=== PATIENT | female | born 1945 ===

== ENCOUNTER 2024-09-22 09:49 | Outpatient (AMB) | payer MEDICARE, SELFPAY ==
--- NOTE | 2024-09-22 10:04 | MHC.OFFVIS ---
Vital Signs 09/22/24 10:18 Height 5 ft 2 in Weight 121 lb 2 oz BMI 22.2 BP 170/83 H Blood Pressure Location Rt brachial Position Sitting Pulse 77 Pulse Source Pulse Oximeter Pulse Oximetry (%) 96 Oxygen Delivery Method Room Air Intake Visit Reasons: Low back pain radiates into right leg Intake Note: Pain today 06/13 Change Management Lead Required: Yes Change Management Lead Language: Coating Engineer Services: Change Management Lead Present Change Management Lead Name: Tony #[id number], Dia #[id number] Accompanied by: Self / Same As Patient Allergies iron Allergy (Unknown, Verified 09/22/24 10:05) Rash Penicillins Allergy (Unknown, Verified 09/22/24 10:05) Rash HPI HPI Low back pain radiates into right leg: Details: Patient is a pleasant 79 years old Mongolian speaking female with history of chronic midline low back pain with sciatica and osteoporosis, presents today for initial evaluation of low back pain with right-sided radiculopathy. She presents in a moderate distress today and constantly changes her positioning from sitting, standing and leaning forward to alleviate her acute back pain. Denies any recent trauma, injury, or falls. 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 Back pain is axial and also radiates to right lower extremity anteriorly and at times radiates to her left leg laterally and posteriorly. She reports numbness and tingling with burning sensation in her right hernández and dorsal foot. Her mobility, functioning, sleep and ADLs are significantly limited due to pain. She is concerned for not able to complete her house chores at home. She experiences spinal-stenosis related pain and cannot pursue formal physical therapy. Denies any fever, chills, abdominal or groin pain, bladder or bowel dysfunction or saddle anesthesia. Reports right lower extremity weakness due to pain. She ambulates with walker. Location: Low back pain radiates into RLE anteriorly, at times on the left posterior Duration: Chronic pain, worsening over the past one year Characteristics of symptom or complaint: Shooting, stabbing, sharp, numbness, tingling, radiating, heavy, aching Aggravating or associated factors: Movements, sitting, walking, sleeping, cold weather, ADLs, housechores Relieving factors: Rest, changing positions, modifying activities, heat, Tylenol Treatment: Lumbar MRI 2021 at [facility] Medical History (Updated 09/22/24 @ 20:21 by JESUSITA Gonzalez) Age-related osteoporosis without current pathological fracture GERD without esophagitis Midline low back pain with sciatica Hypothyroidism Hypertension Review of Systems Const All systems reviewed & are unremarkable except as noted in HPI and below Physical Exam Vital Signs: Last Vital Signs Pulse 77 09/22/24 10:18 BP 170/83 H 09/22/24 10:18 Pulse Ox 96 09/22/24 10:18 Oxygen Delivery Method Room Air 09/22/24 10:18 BMI result Body Mass Index 22.2 General: Appears afebrile. Acute moderate distress due to pain. Alert and oriented. Mood and affect appropriate. Follows and participates in conversation appropriately. Respiratory effort is unlabored. No cough. Able to transition from sit to stand unassisted. Ambulates with left normal heel strike and toe off and increased pain on the right. General: Yes no CVA tenderness Back/Spine/Pelvis Other: Limited lumbar ROM due to significant pain. Lumbar extension and flexion reproduce [id number]-[id number] pain. Mild midline tenderness in the lower lumbar spine, no midline tenderness in the thoracic or upper lumbar spine. Antalgic gait, mild limping on the left. Uses walker with ambulation. Demonstrates 5/5 left and 4/5 right strength of quadriceps bilaterally as well as flexion/dorsiflexion of bilateral feet against resistance. 2+ pedal pulses bilaterally. Straight leg rise with dorsiflexion positive bilaterally, right worse than left. Diminished patellar and achilles reflexes bilaterally. Facet loading test positive bilaterally. Tricia sign positive bilaterally, limited Vicente's test reproduces low back and hip pain. Pelvic compression and Stinchfield tests are positive bilaterally. Mild groin pain with I/E hip rotations. Valsalva maneuver negative. Back: no CVA tenderness Cervical Spine: loss of normal cervical lordosis, cervical muscular tenderness and No Cervical spine tenderness Thoracic/Lumbar Spine: thoracic and lumbar spine normal to inspection, No Thoracic/lumbar spine scar(s), Lasegue's sign positive (localized on the right L4-L5, diffuse on left L5-S1) bilateral, pain with thoraco-lumbar ROM, paraspinal muscle tenderness on the right greater than left, No thoracic spinal tenderness and lumbar spinal tenderness (L3-S1) Pelvis: buttock tenderness on the right and no sciatic notch tenderness Sacroiliac joints: bilaterally tender to palpation Extrem General: Yes capillary refill normal, Yes no clubbing, cyanosis or edema and Yes no calf tenderness Results Reviewed Results Reviewed: No imagiang results are available for review today. Assessment & Plan Assessment & Plan (1) Lumbar back pain with radiculopathy affecting right lower extremity: Code(s): M54.16 - Radiculopathy, lumbar region Category: Medical (2) Lumbosacral spondylosis: Code(s): M47.817 - Spondylosis without myelopathy or radiculopathy, lumbosacral region Category: Medical (3) Lumbar degenerative disc disease: Code(s): M51.369 - Other intervertebral disc degeneration, lumbar region without mention of lumbar back pain or lower extremity pain Category: Medical (4) Lumbar back pain with radiculopathy affecting right lower extremity: Code(s): M54.16 - Radiculopathy, lumbar region Category: Medical (5) Lumbosacral spondylosis: Code(s): M47.817 - Spondylosis without myelopathy or radiculopathy, lumbosacral region Category: Medical (6) Lumbar spinal stenosis: Code(s): M48.061 - Spinal stenosis, lumbar region without neurogenic claudication Category: Medical (7) Midline low back pain with sciatica: Code(s): M54.40 - Lumbago with sciatica, unspecified side Category: Medical Plan Patient presents today with significant acute on chronic right-sided radiculopathy and experiences significant spinal stenosis related pain. We will proceed with lumbar spine MRI to assess for neural integrity and compression. She reports most recent lumbar spine MRI at [facility] several years ago, will request this report today. Short script provided for tramadol for [id number] acute low back pain. Side effects and precautions were discussed with patient. Narcan sent with tramadol, discussed its use and administration. Patient is aware to call if pain worsens or if she develops any red flag symptoms to seek emergency care. Patient denies any cauda equina syndrome symptoms at this time. All questions and concerns have been answered and patient agreed with the treatment plan. Follow-up for MRI results and sooner as needed. Orders: Orders MR lumbar spine wo con Today M47.817 - Spondylosis without myelopathy or radiculopathy, lumbosacral region, M48.061 - Spinal stenosis, lumbar region without neurogenic claudication, M51.369 - Other intervertebral disc degeneration, lumbar region without mention of lumbar back pain or lower extremity pain, M54.16 - Radiculopathy, lumbar region Medications: New naloxone 4 mg/actuation (Narcan) spray 1 dose into ONE nostril; alternate nostrils w each dose until help arrives 4 mg intranasal Q2M PRN 2 ea 0RF opioid overdose lidocaine 5% leave on most painful area for up to 12 hrs topical 30 ea 0RF pain M47.817 - Spondylosis without myelopathy or radiculopathy, lumbosacral region, M48.061 - Spinal stenosis, lumbar region without neurogenic claudication, M51.369 - Other intervertebral disc degeneration, lumbar region without mention of lumbar back pain or lower extremity pain, M54.16 - Radiculopathy, lumbar region tramadol 50 mg PO BID 10 days PRN 20 tabs 0RF pain (scale score 7-10) M47.817 - Spondylosis without myelopathy or radiculopathy, lumbosacral region, M51.369 - Other intervertebral disc degeneration, lumbar region without mention of lumbar back pain or lower extremity pain, M54.16 - Radiculopathy, lumbar region Coding Level of Care Code New Pt Level 4 (93857) Complex EM visit Add On G2211 Diagnoses Lumbar back pain with radiculopathy affecting right lower extremity M54.16 Lumbosacral spondylosis M47.817 Lumbar degenerative disc disease M51.369 Lumbar spinal stenosis M48.061 Midline low back pain with sciatica M54.40
[2024-09-22 10:18] VITALS: BP 170/83; PULSE 77; O2SAT 96; BMI 22.2
== END 2024-09-22 10:55 | disposition home or self-care (01) ==
PROVIDERS: PCP Internal Medicine; Visit Provider Nurse Practitioner Family
DX: M54.16 Radiculopathy, lumbar region (principal); M47.817 Spondylosis without myelopathy or radiculopathy, lumbosacral region; M51.369 Other intervertebral disc degeneration, lumbar region without mention of lumbar back pain or lower extremity pain; M48.061 Spinal stenosis, lumbar region without neurogenic claudication; M54.40 Lumbago with sciatica, unspecified side
CPT/HCPCS: 99204; G2211

== ENCOUNTER → 2024-09-22 09:54 | Outpatient (BNVA) | payer MEDICARE, SELFPAY | PROVIDERS: PCP Internal Medicine; Visit Provider Nurse Practitioner Family | DX: M54.16 Radiculopathy, lumbar region (principal); M47.817 Spondylosis without myelopathy or radiculopathy, lumbosacral region; M51.369 Other intervertebral disc degeneration, lumbar region without mention of lumbar back pain or lower extremity pain; M48.061 Spinal stenosis, lumbar region without neurogenic claudication; M54.40 Lumbago with sciatica, unspecified side | CPT/HCPCS: 99202 ==

== ENCOUNTER 2024-11-30 12:37 | Outpatient (AMB) | payer MEDICARE, SELFPAY ==
--- NOTE | 2024-11-30 13:03 | A.OFFVIS_ITS ---
Vital Signs 11/30/24 13:07 Height 5 ft 2 in Weight 120 lb BMI 21.9 BP 146/95 H Blood Pressure Location Rt brachial Position Sitting Pulse 77 Pulse Source Pulse Oximeter Intake Visit Reasons: Discuss MRI Results Intake Note: Pain today 10 Tumbler Machine Operator Required: Yes Tumbler Machine Operator Language: Director Safety Council Services: Tumbler Machine Operator Present Tumbler Machine Operator Name: [id number] Information Interpreted: non-clinical & clinical Accompanied by: Self / Same As Patient Allergies iron Allergy (Unknown, Verified 11/30/24 13:07) Rash Penicillins Allergy (Unknown, Verified 11/30/24 13:07) Rash HPI Comments Details: Patient presents today for follow-up to discuss recent lumbar spine MRI results. She continues to endorse significant low back pain which radiates into her both anterior thighs into lateral lower legs this is associated numbness and tingling and weakness in the left lower extremity. Patient reports pain 10/10. She states tramadol has been partially effective. 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 She requests therapeutic FAUSTO to alleviate her symptoms. Denies any fever or chills, abdominal or groin pain, bladder or bowel dysfunction or saddle anesthesia. PRIOR: Patient is a pleasant 79 years old Puerto Rican speaking female with history of chronic midline low back pain with sciatica and osteoporosis, presents today for initial evaluation of low back pain with right-sided radiculopathy. She presents in a moderate distress today and constantly changes her positioning from sitting, standing and leaning forward to alleviate her acute back pain. Denies any recent trauma, injury, or falls. 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 Back pain is axial and also radiates to right lower extremity anteriorly and at times radiates to her left leg laterally and posteriorly. She reports numbness and tingling with burning sensation in her right hernández and dorsal foot. Her mobility, functioning, sleep and ADLs are significantly limited due to pain. She is concerned for not able to complete her house chores at home. She experiences spinal-stenosis related pain and cannot pursue formal physical therapy. Denies any fever, chills, abdominal or groin pain, bladder or bowel dysfunction or saddle anesthesia. Reports right lower extremity weakness due to pain. She ambulates with walker. Location: Low back pain radiates into RLE anteriorly, at times on the left posterior Duration: Chronic pain, worsening over the past one year Characteristics of symptom or complaint: Shooting, stabbing, sharp, numbness, tingling, radiating, heavy, aching Aggravating or associated factors: Movements, sitting, walking, sleeping, cold weather, ADLs, housechores Relieving factors: Rest, changing positions, modifying activities, heat, Tylenol [facility] Medical History Age-related osteoporosis without current pathological fracture GERD without esophagitis Midline low back pain with sciatica Hypothyroidism Hypertension Review of Systems Const All systems reviewed & are unremarkable except as noted in HPI and below Physical Exam Vital Signs: Last Vital Signs Pulse 77 11/30/24 13:07 BP 146/95 H 11/30/24 13:07 BMI result Body Mass Index 21.9 General: Appears afebrile. Moderate distress due to pain. Alert and oriented. Mood and affect appropriate. Follows and participates in conversation appropriately. Respiratory effort is unlabored. No cough. Able to transition from sit to stand unassisted. Ambulates with left normal heel strike and toe off and increased pain on the left. General: Yes no CVA tenderness Back/Spine/Pelvis Other: Limited lumbar ROM due to significant pain. Lumbar extension and flexion reproduces [id number]-[id number] pain. Mild midline tenderness in the lower lumbar spine, no midline tenderness in the cervical, thoracic or upper lumbar spine. Antalgic gait, mild limping. Uses walker with ambulation. Demonstrates 5/5 left and 4/5 right strength of quadriceps bilaterally as well as flexion/dorsiflexion of bilateral feet against resistance. 2+ pedal pulses bilaterally. Straight leg rise with dorsiflexion positive bilaterally, right worse than left. Diminished patellar and achilles reflexes bilaterally. Facet loading test positive bilaterally. Tricia sign positive bilaterally, limited Vicente's test reproduces low back and hip pain. Pelvic compression and Stinchfield tests are positive bilaterally. Mild groin pain with I/E hip rotations. Valsalva maneuver negative. Back: no CVA tenderness Cervical Spine: loss of normal cervical lordosis, cervical muscular tenderness and No Cervical spine tenderness Thoracic/Lumbar Spine: thoracic and lumbar spine normal to inspection, No Thoracic/lumbar spine scar(s), Lasegue's sign positive (localized on the right L4-L5, diffuse on left L5-S1) bilateral, pain with thoraco-lumbar ROM, paraspinal muscle tenderness on the right greater than left, No thoracic spinal tenderness and lumbar spinal tenderness (L3-S1) Pelvis: buttock tenderness on the right and no sciatic notch tenderness Sacroiliac joints: bilaterally tender to palpation Extrem General: Yes capillary refill normal, Yes no clubbing, cyanosis or edema and Yes no calf tenderness Results Reviewed Results Reviewed: MR SPINE LUMBAR without CONTRAST 10/17/24 INDICATION: Radiculopathy, lumbar region. Numbness right leg ongoing for 5 weeks. TECHNIQUE: Unenhanced multiplanar, multisequence MR imaging of the lumbar spine. COMPARISON: MR lumbar 08/08/2021, 04/15/2020. FINDINGS: Normal lumbar alignment is demonstrated. Vertebral heights are well maintained. Bone marrow signal is within normal limits, and no suspicious osseous lesion is identified. Conus medullaris is unremarkable. There are bilateral nerve root cysts demonstrated at T11-12 and T12-L1 on the right. Paraspinal soft tissues and visualized portions of the abdomen and pelvis are unremarkable. At L1-2 there is no significant disc herniation or protrusion. No central canal or neural foraminal stenosis is demonstrated. At L2-3 there is mild annular disc bulge. There is minimal facet arthrosis. There is no significant central canal or neural foraminal stenosis. At L3-4 there is no mild annular disc bulge. There is no significant facet arthrosis. There is no significant central canal or neural foraminal stenosis. At L4-5 there is broad-based disc bulge and mild ligament flavum hypertrophy. There is mild narrowing of the central canal. There is mild bilateral neural foraminal stenosis greater on the left. Findings appear stable. At L5-S1 there is no significant disc herniation or protrusion. No central canal or neural foraminal stenosis is demonstrated. 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 IMPRESSION: Degenerative changes predominately at L4-5 with narrowing of the neuroforamina greater on the left. Findings appear stable. No other significant central canal or neural foraminal stenosis. 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 - Perineural cyst Category: Medical (5) Lumbar back pain with radiculopathy affecting right lower extremity: Code(s): M54.16 - Radiculopathy, lumbar region Category: Medical (6) Lumbar spinal stenosis: Code(s): M48.061 - Spinal stenosis, lumbar region without neurogenic claudication Category: Medical (7) Osteoporosis: Code(s): M81.0 - Age-related osteoporosis without current pathological fracture Category: Medical (8) Midline low back pain with sciatica: Code(s): M54.40 - Lumbago with sciatica, unspecified side Category: Medical Plan Lumbar spine MRI imaging results were discussed with patient today. She continues to endorse significant acute on chronic right-sided radiculopathy and experiences significant spinal stenosis related pain. Her lumbar spine MRI findings are consistent with her exam. Given history of osteoporosis, I would like to update her bone scan prior to Bilateral L4-L5 TFESI with local and fluoroscopy. Expectations, risks and benefits were reviewed. Patient declined Neursurgery evaluation at this time. Short script provided for oxycodone for frjzmjwz-eo-xogfow acute low back pain. Side effects and precautions were discussed with patient. Patient has Narcan at home. She is requesting script for pill splitter to trial a half dose initially. Patient is aware to call if pain worsens or if she develops any red flag symptoms to seek emergency care. Patient denies any cauda equina syndrome symptoms at this time. All questions and concerns have been answered and patient agreed with the tr eatment plan. Follow-up Bone scan results and sooner as needed. Orders: Orders XR DEXA axial skeleton Today M47.817 - Spondylosis without myelopathy or radiculopathy, lumbosacral region, M51.369 - Other intervertebral disc degeneration, lumbar region without mention of lumbar back pain or lower extremity pain Medications: New oxycodone Partial Fill upon patient request. 5 mg PO BID 10 days PRN 20 tabs 0RF pain M47.817 - Spondylosis without myelopathy or radiculopathy, lumbosacral region, M51.369 - Other intervertebral disc degeneration, lumbar region without mention of lumbar back pain or lower extremity pain, M54.16 - Radiculopathy, lumbar region miscellaneous medical supply As directed 1 ea 0RF M51.369 - Other intervertebral disc degeneration, lumbar region without mention of lumbar back pain or lower extremity pain Coding Level of Care Code Est Pt Level 4 (39538) Complex EM visit Add On G2211 Diagnoses Lumbosacral spondylosis M47.817 Lumbar degenerative disc disease M51.369 Tarlov cyst G96.191 Lumbar back pain with radiculopathy affecting right lower extremity M54.16 Lumbar spinal stenosis M48.061 Osteoporosis M81.0 Midline low back pain with sciatica M54.40
[2024-11-30 13:07] VITALS: BP 146/95; PULSE 77; BMI 21.9
--- OUTSIDE RECORDS SUMMARY | 2024-11-30 17:19 | XMS_ITS | Encounter Summary ---
Author Organization [facility] Address [address] [place] [id number] Care Team Providers Care Stallion Manager Name Role Phone Chau Oliver MD Primary Care Provider [phone] Encounter Details Date Type Department Care Team (Late st Contact Info) Description 02/26/2022 Dental Interim Note [facility] [address] [place] [phone] Fany Nina, DMD [address] [place] [address] Social History Tobacco Use Types Packs/Day Years Used Date Smoking Tobacco: Never Assessed Social Connections Answer Date Recorded Social Connections and Isolation 0 02/26/2022 Financial Resource Strain Answer Date R ecorded Financial Resource Strain 0 2021 Stress Answer Date Recorded Stress 0 02/26/2022 Physical Activity Answer Date Recorded Physical Activity 0 02/26/2022 Food Insecurity Answer Date Recorded Food 0 02/26/2022 Transportation Needs Answer Date Record ed Transportation 0 02/26/2022 Housing Stability Answer Date Recorded Housing 0 02/26/2022 Safety and Environment Answer Date Kian rded Safety 0 02/26/2022 Utilities Answer Date Recorded Utilities 0 02/26/2022 Employment Answer Date Recorded Employment 0 02/26/2022 Comments Unknown Sex and Gender Information Value Date Recorded Sex Assigned at Female 03/09/2022 11:45 AM PDT Legal Sex Female 6:17 AM PST Gender Identity Female 03/09/2022 11:45 AM PDT Sexual Orientation Straight 03/09/2022 11 :45 AM PDT COVID-19 Exposure Response Date Recorded In the last 10 days, have yo u been in contact with someone who was confirmed or suspected to have Coronavirus/COVID-19? No / Unsure 02/05/2022 9:35 AM EDT documented as of this encounter Plan of Treatment Not on file documented as of this encounter Procedures Procedure Name Priority Date/Time Associated Diagnosis Comments 7 M COMPOSITE - WISDOM (NON BILLABLE) Routine 02/26/2022 12:00 AM EDT 5 RETAINER CROWN-PORCELAIN FUSED PDMT BASE METAL Routine 02/26/2022 12:00 AM EDT 4 RETAINER CROWN-PORCELAIN FUSED PDMT BASE METAL Routine 02/26/2022 12:00 AM EDT 14 RETAINER CROWN-PORCELAIN FUSED PDMT BASE METAL Routine 02/26/2022 12:00 AM EDT 13 RETAINER CROWN-PORCELAIN FUSED PDMT BASE METAL Routine 02/26/2022 12:00 AM EDT 12 RETAINER CROWN-PORCELAIN FUSED PDMT BASE METAL Routine 02/26/2022 12:00 AM EDT 11 RETAINER CROWN-PORCELAIN FUSED PDMT BASE METAL Routine 02/26/2022 12:00 AM EDT 11 RETAINER CROWN-PORCELAIN FUSED PDMT BASE METAL Routine 02/26/2022 12:00 AM EDT 8 RETAINER CROWN-PORCELAIN FUSED PDMT BASE METAL Routine 02/26/2022 12:00 AM EDT 6 RETAINER CROWN-PORCELAIN FUSED PDMT BASE METAL Routine 02/26/2022 12:00 AM EDT 4 RETAINER CROWN-PORCELAIN FUSED PDMT BASE METAL Routine 02/26/2022 12:00 AM EDT documented in this encounter Visit Diagnoses Not on filedocumented in this encounter Care Teams Stallion Manager Relationship Specialty Start Date End Date Chau Oliver MD [address] [place] [address] PCP - General Internal Medicine 12/21/21 documented as of this encounter
--- OUTSIDE RECORDS SUMMARY | 2024-11-30 17:19 | XMS_ITS | Encounter Summary ---
Author Organization [facility] Address [address] [place] [address] Care Team Providers Care Signals Collector/Analyst Name Role Phone Chau Oliver MD Primary Care Provider Encounter Details Date Type Department Care Team (Late st Contact Info) Description 03/22/2022 Dental Interim Note [facility] [address] [place] [address] Fany Nina, SUHA [address] [place] [address] Social History Tobacco Use Types Packs/Day Years Used Date Smoking Tobacco: Never Assessed Smokeless Tobacco: Never Alcohol Use Standard Drinks/Week Comments Never 0 (1 standard drink = 0.6 oz pur e alcohol) Social Connections Answer Date Recorded Connectedness 0 03/09/2022 Financial Resource Strain Answer Date R ecorded Financial Resource Strain 0 2021 Stress Answer Date Recorded Stress 0 03/09/2022 Physical Activity Answer Date Recorded Physical Activity 0 02/26/2022 Food Insecurity Answer Date Recorded Food 0 03/09/2022 Transportation Needs Answer Date Record ed Transportation 0 03/09/2022 Housing Stability Answer Date Recorded Housing 0 03/09/2022 Safety and Environment Answer Date Kian rded Safety 0 03/09/2022 Utilities Answer Date Recorded Utilities 0 03/09/2022 Employment Answer Date Recorded Stress 0 03/09/2022 Comments No Sex and Gender Information Value Date Recorded Sex Assigned at Female 03/09/2022 11:45 AM PDT Legal Sex Female 6:17 AM PST Gender Identity Female 03/09/2022 11:45 AM PDT Sexual Orientation Straight 03/09/2022 11 :45 AM PDT COVID-19 Exposure Response Date Recorded In the last 10 days, have uche u been in contact with someone who was confirmed or suspected to have Coronavirus/COVID-19? No / Unsure 03/09/2022 2:38 PM EDT documented as of this encounter Plan of Treatment Not on file documented as of this encounter Visit Diagnoses Not on filedocumented in this encounter Additional Health Concerns Assessment Noted Time PHQ-9 Depression Total Score: 7 03/09/20 2:42 PM PDT documented as of this encounter Care Teams Signals Collector/Analyst Relationship Specialty Start Date End Date Chau Oliver MD [address] [place] [address] PCP - General Internal Medicine 12/21/21 documented as of this encounter
--- OUTSIDE RECORDS SUMMARY | 2024-11-30 17:19 | XMS_ITS | Encounter Summary ---
Author Organization [facility] Address [address] [place] [address] Care Team Providers Care Frame Builder Name Role Phone Chau Oliver MD Primary Care Provider [phone] Encounter Details Date Type Department Care Team (Late st Contact Info) Description 03/15/2022 Dental Interim Note [facility] [address] [place] [address] Fany Nina, SUHA [address] [place] [address] Social History Tobacco Use Types Packs/Day Years [...] documented as of this encounter Care Teams Frame Builder Relationship Specialty Start Date End Date Chau Oliver MD [address] [place] [address] PCP - General Internal Medicine 12/21/21 documented as of this encounter
--- OUTSIDE RECORDS SUMMARY | 2024-11-30 17:19 | XMS_ITS | Clinical Summary ---
Author Organization [facility] Address [address] [place] [address] Phone Care Team Providers Care Kiln Worker Name Role Phone Chau Oliver MD Primary Care Provider [phone] Allergies Active Allergy Reactions Criticality Noted Date Comments Iron 06/28/2021 Penicillins 06/28/2021 Medications Medication Sig Dispensed Refills Start Date End Date Status amLODIPine (NORVASC) 5 mg tablet Take 1 tablet (5 mg total) by mouth 1 (one) time each day. Active atorvastatin (LIPITOR) 40 mg tablet Take 1 tablet (40 mg total) by mouth 1 (one) time each day. Active cyclobenzaprine (FLEXERIL) 5 mg tablet Take 1 tablet (5 mg total) by mouth 3 (three) times a day if needed. Active levothyroxine (SYNTHROID, LEVOTHROID) 75 mcg tablet Take 1 tablet (75 mcg total) by mouth 1 (one) time each day. 12/11/2021 Active meloxicam (MOBIC) 7.5 mg tablet Take 1 tablet (7.5 mg total) by mouth 1 (one) time each day. 06/28/2021 Active omeprazole (PriLOSEC) [address] capsule Take 1 capsule (20 mg total) by mouth. 03/25/2024 03/20/2025 Active Encounters Date Type Department Care Team Description 09/28/2024 8:30 AM EST - 09/28/2024 11:59 PM EST Hospital Encounter [facility] Bone Density [address] [place] [phone] Age-related osteoporosis without current pathological fracture Discharge Disposition: Home or Self Care from Last 3 Months Surgical History Surgery Date Site/Laterality Comments SHOULDER SURGERY Bilateral PROCEDURE: [place] UNLISTED PROCEDURE SHOULDER HYSTERECTOMY N/A PROCEDURE: HISTORICAL HYSTERECTOMY Social History Tobacco Use Types Packs/Day Years Used Date Smoking Tobacco: Never Smokeless Tobacco: Never Sex and Gender Information Value Date Recorded Sex Assigned at Not on file Gender Identity Not on file Sexual Orientation Not on file Job Start Date Occupation Industry Not on file Not on file Not on file Obstetrics History Last Filed Vital Signs Vital Sign Reading Time Taken Comments Blood Pressure 112/74 07/15/2024 9:44 AM EDT Sitting L Arm Pulse 74 07/15/2024 9:44 AM EDT Temperature - - Respiratory Rate - - Oxygen Saturation - - Inhaled Oxygen Concentration - - Weight 55.5 kg (122 lb 6.4 oz) 07/15/2024 9:44 AM EDT Height 157.5 cm (5' 2 ) 07/15/2024 9:44 AM EDT Body Mass Index 22.39 07/15/2024 9:44 AM EDT Plan of Treatment Upcoming Encounters Date Type Department Care Team (Late st Contact Info) Description 01/18/2025 9:00 AM EDT Office Visit Gastroenterology - [place] [address] [facility] [address] [place] [phone] Carrie Cat PA [address] [facility] [address] [place] [address] Health Maintenance Due Date Last Done Comments Zoster Vaccines (1 of 2) 1993 RSV Immunization Patients 60+ Years Old (1 - 1-dose 75+ series) 2018 Falls Risk Assessment 10/13/2022 Medicare Annual Wellness Visit 10/13/2022 Social Influencers of Health Screening 10/13/2022 Depression Screening 12/21/2023 12/21/2022 COVID-19 Vaccine ( season) 2024 01/14/2021, 12/22/2020 Influenza Vaccine (#1) 2024 08/06/2022, 2020 Hypertension/CHF/CAD Annual BMP Blood Test 09/28/2024 Cholesterol Screening (Lipid Panel) 01/16/2029 01/17/2024, 08/06/2022, 03/12/2022 DTaP,Tdap,and Td Vaccines (2 - Td or Tdap) 03/09/2032 03/09/2022 Osteoporosis Screening (Bone Density Screening) 09/28/2034 09/28/2024 Pneumococcal Vaccine: 65+ Years Completed 05/29/2024, 04/03/2023, 03/09/2022, Additional history exists HIB Vaccines Aged Out No longer eligi ble based on patient's age to complete this topic HPV Vaccines Aged Out No longer eligi ble based on patient's age to complete this topic Hepatitis A Vaccines Aged Out No long er eligible based on patient's age to complete this topic Hepatitis B Vaccines Aged Out No long er eligible based on patient's age to complete this topic IPV Vaccines Aged Out No longer eligi ble based on patient's age to complete this topic MMR Vaccines Aged Out No longer eligi ble based on patient's age to complete this topic Meningococcal ACWY Vaccine Aged Out N o longer eligible based on patient's age to complete this topic RSV Immunization Patients Under 20 months Aged Out No longer eligible based on patient's age to complete this topic Varicella Vaccines Aged Out No longer eligible based on patient's age to complete this topic Procedures Procedure Name Priority Date/Time Associated Diagnosis Comments BD BONE DENSITY DXA AXIAL SKELETON Routine 09/28/2024 9:15 AM EST Age-related osteoporosis without current pathological fracture from Last 3 Months Results * BD Bone Density DXA Axial Skeleton (09/28/2024 9:15 AM EST) Anatomical Region Laterality Modality Wrist, Hip, L-spine Bone Densito metry 09/28/2024 9:58 AM EST Impressions 09/28/2024 10:00 AM EST 1. Osteoporosis. 2. FRAX analysis yields a 10-year probability of major osteoporotic fracture of 17.7% and a 10-year probability of hip fracture of 6.0%. Code 48655 -------- FINAL REPORT -------- Dictated By: Tony Baron Dictated Date: 09/28/2024 09:58 ET Assigned Physician: Tony Baron Reviewed and Electronically Signed By: Tony Baron Signed Date: 09/28/2024 10:00 ET Workstation ID: [id number] Transcribed By: Self Edit Transcribed Date: 09/28/2024 09:58 ET Narrative 09/28/2024 10:00 AM EST HISTORY: ??The patient is an 79-year-old postmenopausal female with clinical concern for metabolic bone disease. FINDINGS: ??Dual energy x-ray absorptiometry of the lumbar spine and femurs is performed. The mean bone mineral density at L1-L4 is 0.839 gm/cm2 which is 71% of that of young normals and 92% of that of age matched controls. This yields a T- score of -2.8 and a Z-score of -0.6 which is diagnostic of osteoporosis. The mean bone mineral density of the femurs bilaterally is 0.812 gm/cm2 which is 81% of that of young normals and 114% of that of age matched controls. ??This yields a T-score of -1.6 and a Z-score of 0.8 which is diagnostic of osteopenia. The T- score of the right femoral neck is -2.3 and that of the left femoral neck is -2.2 which is diagnostic of pain osteopenia. Procedure Note Tony Baron MD - 09/28/2024 HISTORY: The patient is an 79-year-old postmenopausal female withclinical concern for metabolic bone disease. FINDINGS: Dual energy x-ray absorptiometry of the lumbar spine and femursis performed. The mean bone mineral density at L1-L4 is 0.839 gm/cm2 whichis 71% of that of young normals and 92% of that of age matched controls.This yields a T-score of -2.8 and a Z-score of -0.6 which is diagnostic ofosteoporosis. The mean bone mineral density of the femurs bilaterally is 0.812 gm/cz6shirt is 81% of that of young normals and 114% of that of age matchedcontrols. This yields a T-score of -1.6 and a Z-score of 0.8 which isdiagnostic of osteopenia. The T- score of the right femoral neck is -2.3and that of the left femoral neck is -2.2 which is diagnostic of painosteopenia. IMPRESSION: 1. Osteoporosis. 2. FRAX analysis yields a 10-year probability of major osteoporoticfracture of 17.7% and a 10-year probability of hip fracture of 6.0%. Code 44206 -------- FINAL REPORT -------- Dictated By: Tony Baron Dictated Date: 09/28/2024 09:58 ET Assigned Physician: Tony Baron Reviewed and Electronically Signed By: Tony Baron Signed Date: 09/28/2024 10:00 ET Workstation ID: [id number] Transcribed By: Self Edit Transcribed Date: 09/28/2024 09:58 ET Miryam Butler MD IMG DXA PROCEDURE S from Last 3 Months Care Teams Kiln Worker Relationship Specialty Start Date End Date Chau Oliver MD [facility] [place] [address] PCP - General Internal Medicine 03/29/22
--- OUTSIDE RECORDS SUMMARY | 2024-11-30 17:19 | XMS_ITS | Clinical Summary ---
Author Organization [facility] Address [address] [place] [address] Care Team Providers Care Xray Tech Name Role Phone Chau Oliver MD Primary Care Provider [phone] Source Comments PLEASE NOTE, if this patient is a minor, it may be UNLAWFUL to discuss sensitive information that is contained in these records (such as FAMILY PLANNING, MENTAL HEALTH or SUBSTANCE ABUSE) with the minor patient's parent or other person without the patient's specific authorization.[facility] Allergies Active Allergy Reactions Criticality Noted Date Comments Iron Rash 03/09/2022 Penicillins Rash 03/09/2022 Medications diclofenac sodium (VOLTAREN) 1 % gelIndications:Mid line low back pain without sciatica, unspecified chronicity Apply 2-4 g topically 2 (two) times daily 100 g 12/21/19 23 Active omeprazole (PRILOSEC) [address] capsule Take 1 Capsule by mouth every morning before breakfast 90 Capsule 05/15/20 23 Active meclizine (ANTIVERT) 25 mg tabletIndications: Vertigo Take 1 Tablet by mouth once daily as needed for nausea or dizziness 30 Tablet 1 07/04/20 23 Active atorvastatin (LIPITOR) 40 mg tabletIndications: Elevated LDL cholesterol level Take 1 Tablet by mouth once daily 90 Tablet 1 01/15/20 24 Active cyclobenzaprine (FLEXERIL) 10 mg tabletIndications: Neck muscle spasm Take 1 Tablet by mouth 3 (three) times daily as needed for muscle spasms 60 Tablet 01/15/20 24 Active famotidine (PEPCID) 40 mg tabletIndications: Gastroesophageal reflux disease without esophagitis TAKE 1 TABLET BY MOUTH DAILY 90 Tablet 05/14/20 24 Active fluticasone (FLONASE) 50 mcg/actuation nasal sprayIndications:O ther rhinitis SHAKE LIQUID AND USE 1 SPRAY IN BOTH NOSTRILS ONCE DAILY 16 g 5 05/29/20 24 Active loratadine (CLARITIN) 10 mg tabletIndications: Other rhinitis Take 1 Tablet by mouth once daily as needed for allergies 90 Tablet 1 05/29/20 24 Active amLODIPine (NORVASC) 5 mg tabletIndications: Primary hypertension TAKE 1 TABLET BY MOUTH DAILY 90 Tablet 1 08/24/20 24 Active calcium (OS-JOSÉ MIGUEL) 500 mg calcium (1,250 mg) tabletIndications: Age-related osteoporosis without current pathological fracture Take 1 Tablet by mouth 2 (two) times daily 90 Tablet 5 09/03/20 24 Active cholecalciferol (VITAMIN D-3) 50 mcg (2,000 unit) capsuleIndications :Age-related osteoporosis without current pathological fracture Take 1 Capsule by mouth once daily 100 Capsule 5 09/03/20 24 Active levothyroxine 75 mcg tabletIndications: Other specified hypothyroidism Take 1 Tablet by mouth once daily TAKE 1 TABLET BY MOUTH DAILY 90 Tablet 1 11/12/19 25 Active levothyroxine 75 mcg tabletIndications: Other specified hypothyroidism TAKE 1 TABLET BY MOUTH DAILY 90 Tablet 05/14/20 24 025 Discontin ued(Reord er (E-Cancel Not Sent)) Active Problems Problem Noted Date Diagnosed Date Gastroesophageal reflux disease without esophagi tis 06/11/2024 Age-related osteoporosis wit hout current pathological fracture 05/22/2022 Overview (10/05/2024): Bone Densitometer- [facility] 09/28/2024 Osteoporosis Refuses to be on medication. Needs a [facility] because of Bone pain. Pt referred Calcium and Vit d Elevated LDL cholesterol level 03/13/2022 Primary hypertension 03/09/2022 Other specified hypothyroidism 03/09/2022 Midline low back pain without sciatica Overview (03/09/2022): Referred to [facility] Had MRI [facility] [address] by previous MD Mild disc herniation L3-4, L4-5 Broad based posterior disc bulge with small central protrusion and L5-S1 minimal broad based disc bulge Encounters Date Type Department Care Team Description 09/03/2024 9:00 AM EDT Office Visit [facility] [place] [address] Chau Oliver MD Rodriguez, Anabel Age-related osteoporosis without current pathological fracture (Primary Dx) 09/03/2024 Travel from Last 3 Months Immunizations Name Administration Dates Next Due Flu, High Dose, 65y+, Fluzone High Dose 08/06/20 22 PFIZER COVID VACCINE, PURPLE CAP, 12+ 01/14/2021 ,12/22/2020 PNEUMOCOCCAL CONJUGATE PCV 20 (Prevnar) 05/29/20 24 PNEUMOCOCCAL POLYSACCHARIDE PPV23 04/03/2023,04/2022 PPD 03/09/2022 TDAP 03/09/2022 Social History Tobacco Use Types Packs/Day Years Used Date Smoking Tobacco: Never Passive Smoke Exposure: Never Smokeless Tobacco: Never Tobacco Cessation:Counseling Given: Not Answered Alcohol Use Standard Drinks/Week Comments Never 0 [...] Orientation Straight 03/09/2022 11 :45 AM PDT Last Filed Vital Signs Vital Sign Reading Time Taken Comments Blood Pressure 140/74 09/03/2024 8:46 AM EDT Pulse 80 09/03/2024 8:46 AM EDT Temperature 36.8 ??C (98.2 ??F) 09/03/2024 8:46 AM ED T Respiratory Rate 16 09/03/2024 8:46 AM EDT Oxygen Saturation 98% 09/03/2024 8:46 AM EDT Inhaled Oxygen Concentration - - Weight 54.4 kg (120 lb) 09/03/2024 8:46 AM EDT Height 157.5 cm (5' 2 ) 09/03/2024 8:46 AM EDT Body Mass Index 21.95 09/03/2024 8:46 AM EDT Plan of Treatment Health Maintenance Due Date Last Done Comments Dental Perio Charting [address] Colonography 02/24/1988 FIT/gFOBT 02/24/1988 Fecal DNA 02/24/1988 Flexible Sigmoidoscopy 02/24/1988 Imm-Zoster, Recombinant (1 of 2) 1993 [id number] ( season) 2024 021, 12/22/2020 Imm-Influenza (#1) 2024 08/06/2022 Alcohol and Drug Screen 11/04/2024 01/15/20 24, 12/21/2022, 03/09/2022, Additional history exists Depression Annual Screen 11/04/2024 01/15/2024 Falls Prevention 01/14/2025 01/15/2024, , 03/09/2022 Medicare Annual Wellness Visit 01/14/2025 01/15/2024 , 08/17/2022 TSH Monitoring 01/16/2025 01/17/2024, 09/0 03/2023, 03/12/2022 Breast Cancer Screening (Mammogram) 01/29/2025 01/30/2024, 01/30/2024, 01/30/2024, Additional history exists Tobacco Screening 05/29/2025 05/29/2024 Imm-DTaP/Tdap/Td (2 - Td or Tdap) 03/09/2032 022 Colonoscopy 05/23/2033 05/23/2023 Colorectal Cancer Screening 05/23/2033 Imm-Pneumococcal 65+ Completed 05/29/2024, 04/03/2023, 03/09/2022 Bone Density Screening Completed 09/28/2024, 2021 Procedures Procedure Name Priority Date/Time Associated Diagnosis Comments REFERRAL FOR BONE DENSITY TESTING Routine 09/28/2024 3:00 AM EST Age-related osteoporosis without current pathological fracture REFERRAL TO PAIN MANAGEMENT Routine 09/22/2024 3:00 AM EST Age-related osteoporosis without current pathological fracture REFERRAL FOR MAMMOGRAM Routine 01/30/2024 3:00 AM EDT Screening mammogram for breast cancer Health care maintenance ASSAY OF THYROID STIMULATING HORMONE TSH Routine 01/17/2024 8:44 AM EDT Routine general medical examination at a health care facility Primary hypertension Elevated LDL cholesterol level Other specified hypothyroidism REFERRAL FOR COLONOSCOPY Routine 05/23/2023 3:00 AM EDT Health care maintenance from Last 3 Months or Most Recently Relevant to Health Maintenance Results * REFERRAL FOR BONE DENSITY TESTING (09/28/2024 3:00 AM EST) 09/28/2024 3:00 AM EST us Chau Oliver MD IMG RFL DXA Final Result * REFERRAL TO PAIN MANAGEMENT (09/22/2024 3:00 AM EST) 09/22/2024 3:00 AM EST us Chau Oliver MD REFERRAL Final Result * REFERRAL FOR MAMMOGRAM (01/30/2024 3:00 AM EDT) 01/30/2024 3:00 AM EDT us Chau Oliver MD IMG RFL MAMMO Final Result * ASSAY OF THYROID STIMULATING HORMONE TSH (01/17/2024 8:44 AM EDT) TSH 0.90 0.40 - 4.50 mIU/L [facility] Blood Blood / Unknown 01/17/2024 8 :44 AM EDT 01/17/2024 8:45 AM EDT Narrative [facility] - 01/18/2024 6:15 AM EDT FASTING:YES Chau Oliver MD LAB - BLOOD DRAW Edited Result - Final [facility] [address] [address], [facility] [address] [place] [address] * REFERRAL FOR COLONOSCOPY (05/23/2023 3:00 AM EDT) 05/23/2023 3:00 AM EDT Chau Oliver MD REFERRAL Edited Result - Final from Last 3 Months or Most Recently Relevant to Health Maintenance Insurance [place] MED[place] DENTAL GENERIC - DENTAL [facility] MEDICARE COMPLETE Care Teams Xray Tech Relationship Specialty Start Date End Date Chau Oliver MD [address] [place] [address] PCP - General Internal Medicine 12/21/21
== END 2024-11-30 13:39 | disposition home or self-care (01) ==
PROVIDERS: PCP Internal Medicine; Visit Provider Nurse Practitioner Family
DX: M47.817 Spondylosis without myelopathy or radiculopathy, lumbosacral region (principal); M51.369 Other intervertebral disc degeneration, lumbar region without mention of lumbar back pain or lower extremity pain; G96.191 Perineural cyst; M54.16 Radiculopathy, lumbar region; M48.061 Spinal stenosis, lumbar region without neurogenic claudication; M81.0 Age-related osteoporosis without current pathological fracture; M54.40 Lumbago with sciatica, unspecified side
CPT/HCPCS: 99214; G2211

== ENCOUNTER → 2024-11-30 12:37 | Outpatient (BNVA) | payer MEDICARE, SELFPAY | PROVIDERS: PCP Internal Medicine; Visit Provider Nurse Practitioner Family | DX: M47.27 Other spondylosis with radiculopathy, lumbosacral region (principal); M51.369 Other intervertebral disc degeneration, lumbar region without mention of lumbar back pain or lower extremity pain; M81.0 Age-related osteoporosis without current pathological fracture; M48.061 Spinal stenosis, lumbar region without neurogenic claudication; M54.40 Lumbago with sciatica, unspecified side; G96.191 Perineural cyst | CPT/HCPCS: 99212 ==

== ENCOUNTER 2025-01-01 08:39 | Outpatient (REF) | payer MEDICARE, SELFPAY ==
--- NOTE | ~2025-01-01 | MM_ITS ---
EXAMINATION: DXA BONE DENSITY AXIAL HISTORY: Estrogen deficiency TECHNIQUE: Betterment Dual energy absorptiometry (DEXA) of the lumbar spine, total left hip, and femoral neck was performed. COMPARISON: There are no prior studies for comparison. FINDINGS: The bone mineral density of the lumbar spine is 0.802 with a T-score of -3.1, and a Z-score of -1.0. The bone mineral density of the left total hip is 0.789 with a T-score of -1.7, and a Z-score of 0.5. The bone mineral density of the left femoral neck is 0.686 with a T-score of -2.5, and a Z-score of -0.1. MM/XR DEXA axial skeleton IMPRESSION: Based on bone mineral density, and according to World Health Organization (WHO) criteria, the diagnosis is consistent with osteoporosis. All bone density values are in grams per centimeter squared (g/cm2). Statistically, 68% of repeat scans fall within 1 SD (+/- 0.010 g/cm2 for AP spine L1-L4) and 1 SD (+/- 0.012 g/cm2 for femur total) FRAX is a trademark of the [employer]'s [place] for Metabolic Bone Disease, a World Health Organization (WHO) Collaborating Center. Electronically signed by: Alcon Gunn MD 01/01/2025 09:50 AM [facility] [place] [place]
--- OUTSIDE RECORDS SUMMARY | 2025-01-01 08:56 | XMS_ITS | Clinical Summary ---
Author Organization [facility] Address [address] [place] [address] Phone Care Team Providers Care Reed Fixer Name Role Phone Chau Oliver MD Primary Care Provider [phone] Allergies Active Allergy Reactions Criticality Noted Date Comments Iron 06/28/2021 Penicillins 06/28/2021 Medications amLODIPine (NORVASC) 5 mg tablet Take 1 [...] capsule (20 mg total) by mouth. 03/25/2024 Active Surgical History Surgery Date Site/Laterality Comments SHOULDER SURGERY Bilateral PROCEDURE: NE UNLISTED PROCEDURE SHOULDER HYSTERECTOMY N/A PROCEDURE: HISTORICAL HYSTERECTOMY Social History Tobacco Use Types Packs/Day Years Used Date Smoking Tobacco: Never Smokeless Tobacco: Never Comments Unknown Sex and Gender Information Value Date Recorded Sex Assigned at Not on file Legal Sex Female 4:49 AM EST Gender Identity Not on file Sexual Orientation Not on file Obstetrics History Last Filed [...] Team (Late st Contact Info) Description 01/18/2025 9:10 AM EDT Office Visit Gastroenterology - [place] [address] [facility] [address] [place] [phone] Carrie Cat PA [address] [facility] [address] [place] [address] Health Maintenance Due Date Last Done Comments [...] (Bone Density Screening) 09/28/2034 09/28/2024 Pneumococcal Vaccine: 50+ Years Completed 05/29/2024, 04/03/2023, 03/09/2022, Additional history [...] patient's age to complete this topic Meningococcal B Vacine Aged Out No lo nger eligible based on patient's age to complete [...] current pathological fracture from Last 3 Months or Most Recently Relevant to Health Maintenance Results * BD Bone Density DXA Axial Skeleton (09/28/2024 9:15 AM EST) Anatomical Region Laterality Modality Wrist, Hip, L-spine Bone Densito metry 09/28/2024 9:58 AM EST Impressions 09/28/2024 10:00 AM EST 1. Osteoporosis. 2. FRAX analysis yields a 10-year probability of major osteoporotic fracture of 17.7% and a 10-year probability of hip fracture of 6.0%. Code 71703 -------- FINAL REPORT -------- Dictated By: Tony Baron Dictated Date: 09/28/2024 09:58 ET Assigned Physician: Tony Baron Reviewed and Electronically Signed By: Tony Baron Signed Date: 09/28/2024 10:00 ET Workstation ID: [id number] Transcribed By: Self Edit Transcribed Date: 09/28/2024 [...] density of the femurs bilaterally is 0.812 gm/em8ahszy is 81% of that of young normals [...] probability of hip fracture of 6.0%. Code 46111 -------- FINAL REPORT -------- Dictated By: Tony Baron Dictated Date: 09/28/2024 09:58 ET Assigned Physician: Tony Baron Reviewed and Electronically Signed By: Tony Baron Signed Date: 09/28/2024 10:00 ET Workstation ID: [id number] Transcribed By: Self Edit Transcribed Date: 09/28/2024 09:58 ET us Miryam Butler MD IMG DXA PROCEDURES Final Result from Last 3 Months or Most Recently Relevant to Health Maintenance Insurance [employer] MEDICARE Care Teams Reed Fixer Relationship Specialty Start Date End Date Chau Oliver MD [address] [place] [address] PCP - General Internal Medicine 03/29/22
--- OUTSIDE RECORDS SUMMARY | 2025-01-01 08:56 | XMS_ITS | Encounter Summary ---
Author Organization [facility] Address [address] [place] [address] Care Team Providers Care Feather Baler Name Role Phone Chau Oliver MD Primary Care Provider [phone] Encounter Details Date Type Department Care Team (Late st Contact Info) Description 02/26/2022 Dental Interim Note [facility] [address] [place] [phone] Fany Nina, DMD [address] [place] [address] Social History Tobacco Use Types Packs/Day Years [...] on filedocumented in this encounter Care Teams Feather Baler Relationship Specialty Start Date End Date Chau Oliver MD [address] [place] [address] PCP - General Internal Medicine 12/21/21 documented as of this encounter
--- OUTSIDE RECORDS SUMMARY | 2025-01-01 08:56 | XMS_ITS | Encounter Summary ---
Author Organization [facility] Address [address] [place] [address] Care Team Providers Care Batch Trucker Name Role Phone Chau Oliver MD Primary Care Provider [phone] Reason for Visit * Reason Comments Headache Encounter Details Date Type Department Care Team (Latest Contact Info) Description 12/24/2024 2:00 PM EST Office Visit [facility] [address] [place] [phone] Chau Oliver MD [address] [place] [id number] Macarena Nino [address] [place] [address] Primary hypertension; Elevated LDL cholesterol level; Other specified hypothyroidism Social History Tobacco Use Types Packs/Day Years Used Date Smoking Tobacco: Never Passive Smoke Exposure: Never Smokeless Tobacco: Never Tobacco Cessation:Counseling Given: Yes Alcohol Use Standard Drinks/Week Comments Never 0 [...] Orientation Straight 03/09/2022 11 :45 AM PDT documented as of this encounter Last Filed Vital Signs Vital Sign Reading Time Taken Comments Blood Pressure 180/90 12/24/2024 1:35 PM EST Pulse 76 12/24/2024 1:35 PM EST Temperature 36.4 ??C (97.5 ??F) 12/24/2024 1:35 PM ES T Respiratory Rate 16 12/24/2024 1:35 PM EST Oxygen Saturation 97% 12/24/2024 1:35 PM EST Inhaled Oxygen Concentration - - Weight 57.3 kg (126 lb 6.4 oz) 12/24/2024 1:35 P M EST Height 157.5 cm (5' 2 ) 12/24/2024 1:35 PM EST Body Mass Index 23.12 12/24/2024 1:35 PM EST documented in this encounter Progress Notes * Chau Oliver MD - 12/24/2024 1:41 PM EST Images from the original note were not included. Interpreting services by Macarena Nino (Z[place]ian) interpreted for today's visit. were utilized during this visit. Interpreting service provided in person. HPI: Santa Nino is a 79 year old female C/O headache,bodyache and dizziness for 2 months . Denies any Nausea or vomiting. No hearing problem. Also denies any Neurological Symptoms BP is high . Pt says she is not taking Medication for 1 month HTN on Amlodipine 5 mg . Last dose she took 1 month ago Compliance with medication Needs refill on thyroid and cholesterol medication Problem List: Patient Active Problem List Diagnosis Primary hypertension Other specified hypothyroidism Midline low back pain without sciatica Elevated LDL cholesterol level Age-related osteoporosis without current pathological fracture Gastroesophageal reflux disease without esophagitis Medications: Current Outpatient Medications Medication Sig Dispense Refill levothyroxine 75 mcg tablet Take 1 Tablet by mouth once daily TAKE 1 TABLET BY MOUTH DAILY 90 Tablet 1 calcium (OS-JOSÉ MIGUEL) 500 mg calcium (1,250 mg) tablet Take 1 Tablet by mouth 2 (two) times daily 90 Tablet 5 cholecalciferol (VITAMIN D-3) 50 mcg (2,000 unit) capsule Take 1 Capsule by mouth once daily 100 Capsule 5 amLODIPine (NORVASC) 5 mg tablet TAKE 1 TABLET BY MOUTH DAILY 90 Tablet 1 fluticasone (FLONASE) 50 mcg/actuation nasal spray SHAKE LIQUID AND USE 1 SPRAY IN BOTH NOSTRILS ONCE DAILY 16 g 5 loratadine (CLARITIN) 10 mg tablet Take 1 Tablet by mouth once daily as needed for allergies 90 Tablet 1 famotidine (PEPCID) 40 mg tablet TAKE 1 TABLET BY MOUTH DAILY 90 Tablet 0 atorvastatin (LIPITOR) 40 mg tablet Take 1 Tablet by mouth once daily 90 Tablet 1 cyclobenzaprine (FLEXERIL) 10 mg tablet Take 1 Tablet by mouth 3 (three) times daily as needed for muscle spasms 60 Tablet 0 meclizine (ANTIVERT) 25 mg tablet Take 1 Tablet by mouth once daily as needed for nausea or dizziness 30 Tablet 1 omeprazole (PRILOSEC) [address] capsule Take 1 Capsule by mouth every morning before breakfast 90 Capsule 0 diclofenac sodium (VOLTAREN) 1 % gel Apply 2-4 g topically 2 (two) times daily 100 g 0 No current facility-administered medications for this visit. Allergies Allergen Reactions Iron Rash Penicillins Rash ROS: Review of Systems Constitutional: Negative for fever and weight loss. HEENT: Negative for neck pain. Cardiovascular: Negative for chest pain, palpitations, leg swelling and PND. RS: Air entry bilaterally is equal. No rhonchi or crackles Gastrointestinal: Negative for nausea, vomiting and abdominal pain. Musculoskeletal: Negative for back pain. Skin: Negative for rash. Neurological: Negative for dizziness, tingling Vitals: 12/24/24 1335 BP: (!) 180/90 Pulse: 76 Resp: 16 Temp: 97.5 ??F (36.4 ??C) TempSrc: Oral SpO2: 97% Weight: 126 lb 6.4 oz (57.3 kg) Height: 5' 2 (1.575 m) Last 3 BP Readings: Date: BP: 12/24/2024 180/90 09/03/2024 140/74 05/29/2024 132/70 No data to display Body mass index is 23.12 kg/m??. Recent Labs: Office Visit on 01/15/2024 Component Date Value Ref Range Status WHITE BLOOD CELL COUNT 01/17/2024 5.2 3.8 - 10.8 Thousand/uL Final RED BLOOD CELL COUNT 01/17/2024 4.89 3.80 - 5.10 Million/uL Final HEMOGLOBIN 01/17/2024 14.9 11.7 - 15.5 g/dL Final HEMATOCRIT 01/17/2024 44.3 35.0 - 45.0 % Final MCV 01/17/2024 90.6 80.0 - 100.0 fL Final MCH 01/17/2024 30.5 27.0 - 33.0 pg Final MCHC 01/17/2024 33.6 32.0 - 36.0 g/dL Final RDW 01/17/2024 13.2 11.0 - 15.0 % Final PLATELET COUNT 01/17/2024 274 140 - 400 Thousand/uL Final MPV 01/17/2024 10.2 7.5 - 12.5 fL Final ABSOLUTE NEUTROPHILS 01/17/2024 3,214 1,500 - 7,800 cells/uL Final ABSOLUTE LYMPHOCYTES 01/17/2024 1,446 850 - 3,900 cells/uL Final ABSOLUTE MONOCYTES 01/17/2024 437 200 - 950 cells/uL Final ABSOLUTE EOSINOPHILS 01/17/2024 62 15 - 500 cells/uL Final ABSOLUTE BASOPHILS 01/17/2024 42 0 - 200 cells/uL Final NEUTROPHILS PCT 01/17/2024 61.8 % Final LYMPHOCYTES 01/17/2024 27.8 % Final MONOCYTES 01/17/2024 8.4 % Final EOSINOPHILS 01/17/2024 1.2 % Final BASOPHILS 01/17/2024 0.8 % Final GLUCOSE 01/17/2024 82 65 - 99 mg/dL Final Comment: Fasting reference interval UREA NITROGEN (BUN) 01/17/2024 10 7 - 25 mg/dL Final CREATININE (blood) 01/17/2024 0.69 0.60 - 0.95 mg/dL Final EGFR 01/17/2024 88 > OR = 60 mL/min/1.73m2 Final BUN/CREATININE RATIO 01/17/2024 SEE NOTE: Final Comment: Not Reported: BUN and Creatinine are within reference range. SODIUM 01/17/2024 142 135 - 146 mmol/L Final POTASSIUM 01/17/2024 4.4 3.5 - 5.3 mmol/L Final CHLORIDE 01/17/2024 105 98 - 110 mmol/L Final CARBON DIOXIDE 01/17/2024 29 20 - 32 mmol/L Final CALCIUM 01/17/2024 9.0 8.6 - 10.4 mg/dL Final PROTEIN, TOTAL 01/17/2024 6.6 6.1 - 8.1 g/dL Final ALBUMIN 01/17/2024 4.1 3.6 - 5.1 g/dL Final GLOBULIN 01/17/2024 2.5 1.9 - 3.7 g/dL (calc) Final ALBUMIN/GLOBULIN RATIO 01/17/2024 1.6 1.0 - 2.5 (calc) Final BILIRUBIN, TOTAL 01/17/2024 0.5 0.2 - 1.2 mg/dL Final ALKALINE PHOSPHATASE 01/17/2024 68 37 - 153 U/L Final AST 01/17/2024 18 10 - 35 U/L Final ALT 01/17/2024 21 6 - 29 U/L Final TSH 01/17/2024 0.90 0.40 - 4.50 mIU/L Final CHOLESTEROL, TOTAL 01/17/2024 148 <200 mg/dL Final HDL CHOLESTEROL 01/17/2024 50 > OR = 50 mg/dL Final TRIGLYCERIDES 01/17/2024 120 <150 mg/dL Final LDL-CHOLESTEROL 01/17/2024 77 99 mg/dL (calc) Final Comment: Reference range: <100 Desirable range <100 mg/dL for primary prevention; <70 mg/dL for patients with CHD or diabetic patients with > or = 2 CHD risk factors. LDL-C is now calculated using the Trent-Dominguez calculation, which is a validated novel method providing better accuracy than the Friedewald equation in the estimation of LDL-C. Trent HILTON et al. DOMINGO. 2013;310(19): 7276-6515 (http://education.Resonergy.com/faq/GFQ723) CHOL/HDLC RATIO 01/17/2024 3.0 <5.0 (calc) Final NON-HDL CHOLESTEROL 01/17/2024 98 <130 mg/dL (calc) Final Comment: For patients with diabetes plus 1 major ASCVD risk factor, treating to a non-HDL-C goal of <100 mg/dL (LDL-C of <70 mg/dL) is considered a therapeutic option. HEMOGLOBIN A1C 01/17/2024 5.1 <5.7 % of total Hgb Final Comment: For the purpose of screening for the presence of diabetes: <5.7% Consistent with the absence of diabetes 5.7-6.4% Consistent with increased risk for diabetes (prediabetes) > or =6.5% Consistent with diabetes This assay result is consistent with a decreased risk of diabetes. Currently, no consensus exists regarding use of hemoglobin A1c for diagnosis of diabetes in children. According to [place] Diabetes Association (ADA) guidelines, hemoglobin A1c <7.0% represents optimal control in non- diabetic patients. Different metrics may apply to specific patient populations. Standards of Medical Care in Diabetes(ADA). Lab Results Component Value Date TRIGLYC 120 01/17/2024 CHOL 148 01/17/2024 HDL 50 01/17/2024 LDL 77 01/17/2024 CHOLHDL 3.0 01/17/2024 NONHDL 98 01/17/2024 Lab Results Component Value Date HGBA1C 5.1 01/17/2024 Depression Screening 12/24/2024 1:33 PM Little interest or pleasure in doing things Nearly every day Feeling down, depressed or hopeless [include irritable if under 18] Nearly every day Trouble falling or staying asleep, or sleeping too much More than half the days Feeling tired or having little energy Nearly every day Poor appetite or overeating More than half the days Feeling bad about yourself - or that you are a failure or have let yourself or your family down Several days Trouble concentrating on things like school work, reading or watching TV? More than half the days Moving or speaking so slowly that other people could have noticed? Or the opposite - being so fidgety or restless that you have been moving around a lot more than usual Several days Thoughts you would be better off or of hurting yourself in some way Not at all If you checked off any problems, how difficult have these problems made it for you to do your work,take care of things at home, or get along with other people? Not difficult at all PHQ-9 Total Score (Auto Calculated) (!) 17 Depression Severity: Moderately severe PHQ-9 Total Score (Auto Calculated) (!) 17 at 12/24/2024 1:33 PM 12/24/2024 1:33 PM How many times in the past year have you had 4 or more drinks in a day? NONE How many times in the past year have you used a recreational drug or used a prescription medicationfor nonmedical reasons? NONE Did patient decline PHQ screening? No Little interest or pleasure in doing things Nearly every day Feeling down, depressed or hopeless [include irritable if under 18] Nearly every day PHQ2 Score (!) 6 Little interest or pleasure in doing things Nearly every day Feeling down, depressed or hopeless [include irritable if under 18] Nearly every day Trouble falling or staying asleep, or sleeping too much More than half the days Feeling tired or having little energy Nearly every day Poor appetite or overeating More than half the days Feeling bad about yourself - or that you are a failure or have let yourself or your family down Several days Trouble concentrating on things like school work, reading or watching TV? More than half the days Moving or speaking so slowly that other people could have noticed? Or the opposite - being so fidgety or restless that you have been moving around a lot more than usual Several days Thoughts you would be better off or of hurting yourself in some way Not at all If you checked off any problems, how difficult have these problems made it for you to do your work,take care of things at home, or get along with other people? Not difficult at all PHQ-9 Total Score (Auto Calculated) (!) 17 Depression Severity: Moderately severe 1) Have you wished you were or wished you could go to sleep and not wake up? No 2) Have you had any actual thoughts of killing yourself? No 3) Have you been thinking about how you might do this? No 4) Have you had these thoughts and had some intention of acting on them? No 5a) Have you started to work out, or worked out the details of how to kill yourself? No 5b) Do you intend to carry out this plan? No 6a) Have you EVER done anything, started to do anything, or prepared to do anything to end your life? No 6b) Was this within the past 3 months? No C-SSRS Risk Level No Risk PE: General: NAD HEENT: Nasal Passage is clear. Pharynx is clear. Sinuses are non tender. Right ear and Left ear is normal.. Eyes : RUKHSANA EOM intact. Eye lids are not swollen, conjunctiva is pink. Neck: ROM is full. No adenopathy CV: RRR, S1S2+, no murmurs Lungs: CTA bilaterally, No wheeze Abd: soft, NT, ND . Bowel sounds are normal Neuro: No focal neuro defecits. Back: ROM is full .SLR is negative. DTR is normal Ext: no cyanosis,clubbing or edema Ankle and Foot : normal exams A/P: I10 Primary hypertension Plan : AMLODIPINE 5 MG TABLET - Take 1 Tablet by mouth once daily ACETAMINOPHEN 500 MG TABLET - Take 1 Tablet by mouth every 6 (six) hours as needed for pain Compliance discussed The patient was advised to follow the DASH diet. Recommended a diet high in fruits, vegetables, fiber, low-fat dairy, and lean protein. Advised avoiding products with added salt. Recommend 6-8 servings of whole grains per day, 4-5 servings vegetables per day, 4-5 servings of fruit per day, 2-3 servings of low- fat dairy per day, and 6 or fewer servings of lean protein per day. Limit salt intake to1,500mg daily. Avoid processed foods to prevent taking in excess sodium. Discussed that a diet highin sodium is known to increase blood pressure and that DASH diet may help with lowering BP, heart health, and weight loss. E78.00 Elevated LDL cholesterol level Plan : ATORVASTATIN 40 MG TABLET - Take 1 Tablet by mouth once daily E03.8 Other specified hypothyroidism Plan : LEVOTHYROXINE 75 MCG TABLET - Take 1 Tablet by mouth once daily TAKE 1 TABLET BY MOUTH DAILY RT in 3 months Assessment and plan discussed with patient. Patient agrees with plan. Questions answered. If any new or worsening symptoms / if symptoms does not improve as expected patient may report to ER or call 911. Contingency to seek urgent/emergent care discussed Patient counseled for healthy lifestyle, dietary habits, physical activity and regular exercise. Lifestyle modifications including healthy diet and regular exercise (moderate- intensity aerobic exercises for at least 30 minutes 3-5 times/week) discussed. Discussed healthy heart and DASH diets; written info given to patient. Avoid fried foods, oily foods and limit foods rich in calories, saturated fats. Increase intake of fruits and vegetables. Discussed medication adherence, safe sex, safe driving. Discussed fall precautions. documented in this encounter Miscellaneous Notes * Patient Instructions - Chau Oliver MD - 12/24/2024 1:47 PM EST If you are not able to keep your appointment please call 24-48 hours before your appointment to cancel or reschedule. documented in this encounter Plan of Treatment Not on file documented as of this encounter Visit Diagnoses Diagnosis Primary hypertension Unspecified essential hypertension Elevated LDL cholesterol level Pure hypercholesterolemia Other specified hypothyroidism documented in this encounter Additional Health Concerns Assessment Noted Time PHQ-9 Depression Total Score: 17 025 1:33 PM PST documented as of this encounter Care Teams Batch Trucker Relationship Specialty Start Date End Date Chau Oliver MD [address] [place] [address] PCP - General Internal Medicine 12/21/21 documented as of this encounter
--- OUTSIDE RECORDS SUMMARY | 2025-01-01 08:56 | XMS_ITS | Encounter Summary ---
Author Organization [facility] Address [address] [place] [address] Care Team Providers Care Unified Communications Engineer Name Role Phone Chau Oliver MD Primary Care Provider Encounter Details Date Type Department Care Team (Late st Contact Info) Description 03/15/2022 Dental Interim Note [facility] [address] [place] [address] Fany Nina, SUHA [address] [place] [address] Social History Tobacco Use Types Packs/Day Years [...] documented as of this encounter Care Teams Unified Communications Engineer Relationship Specialty Start Date End Date Chau Oliver MD [address] [place] [address] PCP - General Internal Medicine 12/21/21 documented as of this encounter
--- OUTSIDE RECORDS SUMMARY | 2025-01-01 08:56 | XMS_ITS | Encounter Summary ---
Author Organization [facility] Address [address] [place] [address] Care Team Providers Care Pump Technician Name Role Phone Chau Oliver MD Primary Care Provider [phone] Encounter Details Date Type Department Care Team (Late st Contact Info) Description 03/22/2022 Dental Interim Note [facility] [address] [place] [address] Fany Nina, SUHA [address] [place] [address] Social History Tobacco Use Types Packs/Day Years [...] documented as of this encounter Care Teams Pump Technician Relationship Specialty Start Date End Date Chau Oliver MD [address] [place] [address] PCP - General Internal Medicine 12/21/21 documented as of this encounter
--- OUTSIDE RECORDS SUMMARY | 2025-01-01 08:56 | XMS_ITS | Clinical Summary ---
Author Organization [facility] Address [address] [place] [address] Care Team Providers Care Right Of Way Man Name Role Phone Chau Oliver MD Primary Care Provider Source Comments PLEASE NOTE, if this patient [...] dizziness 30 Tablet 1 07/04/20 23 Active cyclobenzaprine (FLEXERIL) 10 mg tabletIndications: Neck [...] allergies 90 Tablet 1 05/29/20 24 Active calcium (OS-JOSÉ MIGUEL) 500 mg calcium (1,250 mg) tabletIndications: Age-related osteoporosis without current pathological fracture Take 1 Tablet by mouth 2 (two) times daily 90 Tablet 5 09/03/20 24 Active cholecalciferol (VITAMIN D-3) 50 mcg (2,000 unit) capsuleIndications :Age-related osteoporosis without current pathological fracture Take 1 Capsule by mouth once daily 100 Capsule 5 09/03/20 24 Active amLODIPine (NORVASC) 5 mg tabletIndications: Primary hypertension Take 1 Tablet by mouth once daily 90 Tablet 1 12/24/19 25 Active acetaminophen (TYLENOL) 500 mg tabletIndications: Primary hypertension Take 1 Tablet by mouth every 6 (six) hours as needed for pain 60 Tablet 12/24/19 25 Active atorvastatin (LIPITOR) 40 mg tabletIndications: Elevated LDL cholesterol level Take 1 Tablet by mouth once daily 90 Tablet 1 12/24/19 25 Active levothyroxine 75 mcg tabletIndications: Other specified hypothyroidism Take 1 Tablet by mouth once daily TAKE 1 TABLET BY MOUTH DAILY 90 Tablet 1 12/24/19 25 Active atorvastatin (LIPITOR) 40 mg tabletIndications: Elevated LDL cholesterol level Take 1 Tablet by mouth once daily 90 Tablet 1 01/15/20 24 025 Discontin ued(Reord er (E-Cancel Not Sent)) amLODIPine (NORVASC) 5 mg tabletIndications: Primary hypertension TAKE 1 TABLET BY MOUTH DAILY 90 Tablet 1 08/24/20 24 025 Discontin ued(Reord er (E-Cancel Not Sent)) levothyroxine 75 mcg tabletIndications: Other specified hypothyroidism Take 1 Tablet by mouth once daily TAKE 1 TABLET BY MOUTH DAILY 90 Tablet 1 11/12/19 25 025 Discontin ued(Reord er (E-Cancel Not Sent)) Active Problems Problem Noted Date Diagnosed Date Gastroesophageal reflux disease without esophagi tis 06/11/2024 Age-related osteoporosis wit hout current pathological fracture 05/22/2022 Overview (10/05/2024[facility] Osteoporosis Refuses to be on medication. Needs a [facility] because of Bone pain. Pt referred Calcium and Vit d Elevated LDL cholesterol level 03/13/2022 Primary hypertension 03/09/2022 Other specified hypothyroidism 03/09/2022 Midline low back pain without sciatica Overview (03/09/2022): Referred to [facility] Had MRI 2020 [facility] [address] by previous MD Mild disc herniation L3-4, L4-5 Broad based posterior disc bulge with small central protrusion and L5-S1 minimal broad based disc bulge Encounters Date Type Department Care Team Description 12/24/2024 2:00 PM EST Office Visit [facility] [address] [place] [address] Chau Oliver, Macarena Cornejo Primary hypertension; Elevated LDL cholesterol level; Other specified hypothyroidism from Last 3 Months Immunizations Name Administration [...] Mass Index 23.12 12/24/2024 1:35 PM EST Plan of Treatment Health Maintenance Due Date Last Done Comments Dental Perio Charting [address] Colonography 02/24/1988 FIT/gFOBT 02/24/1988 Fecal DNA 02/24/1988 Flexible Sigmoidoscopy 02/24/1988 Imm-Zoster, Recombinant (1 of 2) 1993 [id number] ( season) 2024 021, 12/22/2020 Imm-Influenza (#1) 2024 08/06/2022 Depression Annual Screen 11/04/2024 12/24/2024, 01/02 Falls Prevention 01/14/2025 01/15/2024, , 03/09/2022 Medicare Annual Wellness Visit 01/14/2025 01/15/2024 , 08/17/2022 TSH Monitoring 01/16/2025 01/17/2024, 09/0 03/2023, 03/12/2022 Breast Cancer Screening (Mammogram) 01/29/2025 01/30/2024, 01/30/2024, 01/30/2024, Additional history exists Depression Monitoring 03/23/2025 12/24/2024 , 12/21/2022, 03/09/2022 Tobacco Screening 12/24/2025 12/24/2024 Imm-DTaP/Tdap/Td (2 - Td or Tdap) 03/09/2032 022 Colonoscopy 05/23/2033 05/23/2023 Colorectal Cancer Screening 05/23/2033 Imm-Pneumococcal 65+ Completed 05/29/2024, 04/03/2023, 03/09/2022 Bone Density Screening Completed , 09/28/2024, 05/11/2022 Alcohol and Drug Screen Completed 12/24/19, 01/15/2024, 12/21/2022, Additional history exists Procedures Procedure Name Priority Date/Time Associated Diagnosis Comments REFERRAL SCANNED DOCUMENT 11/30/2024 3:00 AM EST REFERRAL FOR BONE DENSITY TESTING Routine 09/28/2024 [...] Relevant to Health Maintenance Results * REFERRAL SCANNED DOCUMENT (11/30/2024 3:00 AM EST) 11/30/2024 3:00 AM EST us Chau Oliver MD SCAN REFERRAL Final Result * REFERRAL FOR BONE DENSITY TESTING (09/28/2024 3:00 AM EST) 09/28/2024 3:00 AM EST us Chau Oliver MD IMG RFL DXA Final Result * REFERRAL FOR MAMMOGRAM (01/30/2024 3:00 AM EDT) 01/30/2024 3:00 AM EDT us Chau Oliver MD IMG RFL MAMMO Final Result * ASSAY OF THYROID STIMULATING HORMONE TSH (01/17/2024 8:44 AM EDT) TSH 0.90 0.40 - 4.50 mIU/L Materia Blood Blood / Unknown 01/17/2024 8 :44 AM EDT 01/17/2024 8:45 AM EDT Narrative [employer] [facility] [employer] - 01/18/2024 6:15 AM EDT FASTING:YES us Chau Oliver MD LAB - BLOOD DRAW Edited Result - Final Performing Organization Address City/State/[facility] Co de Phone Number [facility] [address] [place] [id number], [employer] [address] [address] * REFERRAL FOR COLONOSCOPY (05/23/2023 3:00 AM EDT) 05/23/2023 3:00 AM EDT us Chau Oliver MD REFERRAL Edited Result - Final from Last 3 Months or Most Recently Relevant to Health Maintenance [place] DENTAL GENERIC - D[facility]AL [facility] MEDICARE COMPLETE Care Teams Right Of Way Man Relationship Specialty Start Date End Date Chau Oliver MD [address] [place] [address] PCP - General Internal Medicine 12/21/21
== END 2025-01-01 08:40 | disposition home or self-care (01) ==
LOC: HO.MAMMO 08:39
PROVIDERS: PCP Internal Medicine; Visit Provider Nurse Practitioner Family
DX: Z13.820 Encounter for screening for osteoporosis (principal); M51.369 Other intervertebral disc degeneration, lumbar region without mention of lumbar back pain or lower extremity pain; M47.817 Spondylosis without myelopathy or radiculopathy, lumbosacral region; E28.39 Other primary ovarian failure
CPT/HCPCS: 77080

== ENCOUNTER → 2025-01-01 09:15 | Outpatient (BNV) | payer MEDICARE, SELFPAY | PROVIDERS: PCP Internal Medicine; Visit Provider Radiology Diagnostic Radiology | DX: E28.39 Other primary ovarian failure (principal) | CPT/HCPCS: 77080 ==

== ENCOUNTER 2025-03-01 09:10 | Outpatient (AMB) | payer MEDICARE, SELFPAY ==
--- NOTE | 2025-03-01 09:13 | MHC.OFFVIS ---
Vital Signs 03/01/25 09:16 Height 5 ft 2 in Weight 120 lb BMI 21.9 BP 168/75 H Blood Pressure Location Rt brachial Position Sitting Pulse 82 Pulse Source Pulse Oximeter Pulse Oximetry (%) 98 Oxygen Delivery Method Room Air Intake Visit Reasons: FU patient request Intake Note: Pain today 10/10 Horse Rancher Required: Yes Horse Rancher Language: Control Panel Operator Name: Nephew Accompanied by: Nephew or Niece Allergies iron Allergy (Unknown, Verified 03/01/25 09:17) Rash Penicillins Allergy (Unknown, Verified 03/01/25 09:17) Rash HPI Comments Details: The patient is an 80-year-old female presenting with follow-up concerns of back and right leg pain. The pain has been ongoing and worsening over the past few months, characterized as severe and radiating from the lumbar region down to the right leg. The patient notes significant discomfort, with a pain severity rating of 10/10. Her history of osteoporosis limits the treatment options, as she cannot receive steroid injections due to the risk of exacerbating her bone condition. Concurrently, arthritis is also contributing to her back pain. Her MRI in October did not display significant pathology, yet the pain intensifies. She is interested in Neurosurgery referral and requests this at [facility]. Consultation with our [facility] team about recent lumbar MRI findings concluded no surgical intervention needed. Additionally, the patient experiences significant right knee pain potentially contributing to her overall leg discomfort. While she has not had prior knee injections and is hesitant to pursue them, the option of diagnostic imaging for further assessment and potential gel injections without steroids was discussed. - Onset & Timing: Several months ago, progressively worsening - Quality & Character: Radiating pain from lower back to right leg, primarily affecting the front; originates L4-L5 - Primary Location: Lower back with radiation to right leg - Exacerbating Factors: Movements, bending, walking, prolonged standing or sitting, climbing stairs - Relieving Factors: Rest, activity modifications, heat, Tylenol - Functional Impact: Severe, rated as 10/10 pain; impacts daily activities - Affect: Severe pain causing significant distress - Analgesia: Currently using Tylenol; pain level rated at 10/10; no specific goal pain level provided - Adverse Effects: No reported side effects from Tylenol - Activities of Daily Living: Pain significantly affects mobility; difficulty performing daily tasks - Aberrant Drug Related Behaviors: None reported PRIOR: Patient presents today for follow-up to discuss recent lumbar spine MRI results. She continues to endorse significant low back pain which radiates into her both anterior thighs into lateral lower legs this is associated numbness and tingling and weakness in the left lower extremity. Patient reports pain 10/10. She states tramadol has been partially effective. 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 She requests therapeutic FAUSTO to alleviate her symptoms. Denies any fever or chills, abdominal or groin pain, bladder or bowel dysfunction or saddle anesthesia. PRIOR: Patient is a pleasant 79 years old Malawian speaking female with history of chronic midline low back pain with sciatica and osteoporosis, presents today for initial evaluation of low back pain with right-sided radiculopathy. She presents in a moderate distress today and constantly changes her positioning from sitting, standing and leaning forward to alleviate her acute back pain. Denies any recent trauma, injury, or falls. 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 Back pain is axial and also radiates to right lower extremity anteriorly and at times radiates to her left leg laterally and posteriorly. She reports numbness and tingling with burning sensation in her right hernández and dorsal foot. Her mobility, functioning, sleep and ADLs are significantly limited due to pain. She is concerned for not able to complete her house chores at home. She experiences spinal-stenosis related pain and cannot pursue formal physical therapy. Denies any fever, chills, abdominal or groin pain, bladder or bowel dysfunction or saddle anesthesia. Reports right lower extremity weakness due to pain. She ambulates with walker. Location: Low back pain radiates into RLE anteriorly, at times on the left posterior Duration: Chronic pain, worsening over the past one year Characteristics of symptom or complaint: Shooting, stabbing, sharp, numbness, tingling, radiating, heavy, aching Aggravating or associated factors: Movements, sitting, walking, sleeping, cold weather, ADLs, housechores Relieving factors: Rest, changing positions, modifying activities, heat, Tylenol [facility] Medical History Age-related osteoporosis without current pathological fracture GERD without esophagitis Midline low back pain with sciatica Hypothyroidism Hypertension Review of Systems Const Details: - Musculoskeletal: Reports back and right leg pain, right knee pain - Neurological: Reports lumbar radiculopathy, denies bladder or bowel dysfunction or saddle anesthesia All systems reviewed & are unremarkable except as noted in HPI and below Physical Exam Vital Signs: Last Vital Signs Pulse 82 03/01/25 09:16 BP 168/75 H 03/01/25 09:16 Pulse Ox 98 03/01/25 09:16 Oxygen Delivery Method Room Air 03/01/25 09:16 BMI result Body Mass Index 21.9 General: Appears afebrile. Moderate distress due to pain. Alert and oriented. Mood and affect appropriate. Follows and participates in conversation appropriately. Respiratory effort is unlabored. No cough. Able to transition from sit to stand unassisted. Ambulates with left normal heel strike and toe off and increased pain on the left. General: Yes no CVA tenderness Back/Spine/Pelvis Other: Limited lumbar ROM due to significant pain. Lumbar extension and flexion reproduces [id number] pain. Mild midline tenderness in the lower lumbar spine, no midline tenderness in the cervical, thoracic or upper lumbar spine. Antalgic gait with mild limping. Demonstrates 5/5 left and 4/5 right due to pain strength of quadriceps bilaterally as well as flexion/dorsiflexion of bilateral feet against resistance. 2+ pedal pulses bilaterally. Straight leg rise with dorsiflexion is positive on the right. Diminished patellar and achilles reflexes bilaterally. Facet loading test positive bilaterally. Tricia sign positive bilaterally, limited Vicente's test reproduces low back and hip pain. Pelvic compression and Stinchfield tests are positive bilaterally. Mild groin pain with I/E hip rotations. Valsalva maneuver negative. Back: no CVA tenderness Cervical Spine: loss of normal cervical lordosis, cervical muscular tenderness and No Cervical spine tenderness Thoracic/Lumbar Spine: thoracic and lumbar spine normal to inspection, No Thoracic/lumbar spine scar(s), Lasegue's sign positive (localized on the right L4-L5, diffuse on left L5-S1) bilateral, pain with thoraco-lumbar ROM, paraspinal muscle tenderness on the right greater than left, No thoracic spinal tenderness and lumbar spinal tenderness (L3-S1) Pelvis: buttock tenderness on the right and no sciatic notch tenderness Sacroiliac joints: bilaterally tender to palpation Extrem General: Yes capillary refill normal, Yes no clubbing, cyanosis or edema and Yes no calf tenderness Right lower extremity: knee (Limited ROM due to pain) Details: normal to inspection, tenderness Location: of the patella, of the medial joint line and of the lateral joint line and crepitus; no swelling, no ecchymosis and no unusual warmth Left lower extremity: knee (Limited ROM due to pain) Details: normal to inspection, tenderness Location: of the medial joint line and of the lateral joint line and crepitus; no swelling, no ecchymosis and no unusual warmth Results Reviewed Results Reviewed: MR SPINE LUMBAR without CONTRAST 10/17/24 INDICATION: Radiculopathy, lumbar region. Numbness right leg ongoing for 5 weeks. TECHNIQUE: Unenhanced multiplanar, multisequence MR imaging of the lumbar spine. COMPARISON: MR lumbar 08/08/2021, 04/15/2020. FINDINGS: Normal lumbar alignment is demonstrated. Vertebral heights are well maintained. Bone marrow signal is within normal limits, and no suspicious osseous lesion is identified. Conus medullaris is unremarkable. There are bilateral nerve root cysts demonstrated at T11-12 and T12-L1 on the right. Paraspinal soft tissues and visualized portions of the abdomen and pelvis are unremarkable. At L1-2 there is no significant disc herniation or protrusion. No central canal or neural foraminal stenosis is demonstrated. At L2-3 there is mild annular disc bulge. There is minimal facet arthrosis. There is no significant central canal or neural foraminal stenosis. At L3-4 there is no mild annular disc bulge. There is no significant facet arthrosis. There is no significant central canal or neural foraminal stenosis. At L4-5 there is broad-based disc bulge and mild ligament flavum hypertrophy. There is mild narrowing of the central canal. There is mild bilateral neural foraminal stenosis greater on the left. Findings appear stable. At L5-S1 there is no significant disc herniation or protrusion. No central canal or neural foraminal stenosis is demonstrated. 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 IMPRESSION: Degenerative changes predominately at L4-5 with narrowing of the neuroforamina greater on the left. Findings appear stable. No other significant central canal or neural foraminal stenosis. DEXA axial skeleton 01/01/25 IMPRESSION: Based on bone mineral density, and according to World Health Organization (WHO) criteria, the diagnosis is consistent with osteoporosis. Assessment & Plan Assessment & Plan (1) Lumbar back pain with radiculopathy affecting right lower extremity: Code(s): M54.16 - Radiculopathy, lumbar region Category: Medical (2) Lumbar spinal stenosis: Code(s): M48.061 - Spinal stenosis, lumbar region without neurogenic claudication Category: Medical (3) Bilateral knee pain: Code(s): M25.561 - Pain in right knee; M25.562 - Pain in left knee Category: Medical (4) Lumbosacral spondylosis: Code(s): M47.817 - Spondylosis without myelopathy or radiculopathy, lumbosacral region Category: Medical (5) Lumbar degenerative disc disease: Code(s): M51.369 - Other intervertebral disc degeneration, lumbar region without mention of lumbar back pain or lower extremity pain Category: Medical (6) Tarlov cyst: Code(s): G96.191 - Perineural cyst Category: Medical Plan We will address patient's axial low back pain through diagnostic injections to identify the effectiveness for potential radiofrequency ablation or peripheral nerve stimulation procedures, considering her limitations with osteoporosis. Schedule Bilateral Diagnostic L3-L4 DR L5 MBB with local and fluoroscopy. Expectations, risks and benefits were reviewed. Patient is aware she will be contacted to schedule this procedure. Analgesic relief from Tylenol will be continued with the consideration of adding ibuprofen pending renal clearance from her PCP. Bilateral knee X-ray is recommended to evaluate for significant arthritis, with subsequent gel injection if indicated and acceptable to the patient. A neurosurgical referral for a second opinion regarding lumbar spinal stenosis was sent to Dr. Martinez at [facility] per patient's and family request. All questions and concerns have been answered and patient agreed with the plan. Follow up after injections/xray results and sooner as needed. Patient was informed and verbally consented to the use of an ambient scribe for clinic note documentation during this visit. Orders: Orders XR knee LT 3V Today M25.561 - Pain in right knee, M25.562 - Pain in left knee Referrals Neurosurgery Referral G96.191 - Perineural cyst, M48.061 - Spinal stenosis, lumbar region without neurogenic claudication, M54.16 - Radiculopathy, lumbar region Coding Level of Care Code Est Pt Level 4 (71122) Diagnoses Lumbar back pain with radiculopathy affecting right lower extremity M54.16 Lumbar spinal stenosis M48.061 Bilateral knee pain M25.561; M25.562 Lumbosacral spondylosis M47.817 Lumbar degenerative disc disease M51.369 Tarlov cyst G96.191
[2025-03-01 09:16] VITALS: BP 168/75; PULSE 82; O2SAT 98; BMI 21.9
--- OUTSIDE RECORDS SUMMARY | 2025-03-01 09:59 | XMS_ITS | Encounter Summary ---
Author Organization [facility] Address [address] [place] [address] Care Team Providers Care Soda Tester Name Role Phone Chau Oliver MD Primary Care Provider [phone] Encounter Details Date Type Department Care Team (Late st Contact Info) Description 03/22/2022 Dental Interim Note [facility] [address] [place] [address] Fany Nina, SUHA [address] [place] [address] Social History Tobacco Use Types Packs/Day Years [...] documented as of this encounter Care Teams Soda Tester Relationship Specialty Start Date End Date Chau Oliver MD [address] [place] [address] PCP - General Internal Medicine 12/21/21 documented as of this encounter
--- OUTSIDE RECORDS SUMMARY | 2025-03-01 09:59 | XMS_ITS | Encounter Summary ---
Author Organization [facility] Address [address] [address] Care Team Providers Care Community Service Technician Name Role Phone Chau Oliver MD Primary Care Provider Encounter Details Date Type Department Care Team (Late st Contact Info) Description 02/15/2025 Results Follow-Up [facility] [address] [place] [address] Chau Oliver MD [address] [place] [address] Social History Tobacco Use Types Packs/Day Years Used Date Smoking Tobacco: Never Passive Smoke Exposure: Never Smokeless Tobacco: Never Alcohol Use Standard Drinks/Week [...] AM PDT documented as of this encounter Miscellaneous Notes * Result Encounter Note - Chau Oliver MD - 02/15/2025 12:27 PM EDT (No text entered for this result note.) documented in this encounter Plan of Treatment Not on file documented as of this encounter Visit Diagnoses Not on filedocumented in this encounter Additional Health Concerns Assessment Noted Time PHQ-9 Depression Total Score: 17 025 1:33 PM PST documented as of this encounter Care Teams Community Service Technician Relationship Specialty Start Date End Date Chau Oliver MD [address] [place] [address] PCP - General Internal Medicine 12/21/21 documented as of this encounter
--- OUTSIDE RECORDS SUMMARY | 2025-03-01 09:59 | XMS_ITS | Encounter Summary ---
Author Organization [facility] Address [address] [place] [address] Care Team Providers Care Sound Recordist Name Role Phone Chau Oliver MD Primary Care Provider [phone] Encounter Details Date Type Department Care Team (Late st Contact Info) Description 03/15/2022 Dental Interim Note [facility] [address] [place] [address] Fany Nina, SUHA [address] [place] [address] Social History Tobacco Use Types Packs/Day Years [...] documented as of this encounter Care Teams Sound Recordist Relationship Specialty Start Date End Date Chau Oliver MD [address] [place] [address] PCP - General Internal Medicine 12/21/21 documented as of this encounter
--- OUTSIDE RECORDS SUMMARY | 2025-03-01 09:59 | XMS_ITS | Clinical Summary ---
Author Organization [facility] Address [address] [place] [address] Care Team Providers Care Software Engineer Developer Name Role Phone Chau Oliver MD Primary Care Provider [phone] Source Comments PLEASE NOTE, if this patient [...] topically 2 (two) times daily 100 g 3 Active omeprazole (PRILOSEC) [address] capsule Take 1 Capsule by mouth every morning before breakfast 90 Capsule 3 Active meclizine (ANTIVERT) 25 mg tabletIndications: Vertigo Take 1 Tablet by mouth once daily as needed for nausea or dizziness 30 Tablet 1 3 Active cyclobenzaprine (FLEXERIL) 10 mg tabletIndications: Neck muscle spasm Take 1 Tablet by mouth 3 (three) times daily as needed for muscle spasms 60 Tablet 4 Active famotidine (PEPCID) 40 mg tabletIndications: Gastroesophageal reflux disease without esophagitis TAKE 1 TABLET BY MOUTH DAILY 90 Tablet 4 Active fluticasone (FLONASE) 50 mcg/actuation nasal sprayIndications:O ther rhinitis SHAKE LIQUID AND USE 1 SPRAY IN BOTH NOSTRILS ONCE DAILY 16 g 5 4 Active loratadine (CLARITIN) 10 mg tabletIndications: Other rhinitis Take 1 Tablet by mouth once daily as needed for allergies 90 Tablet 1 4 Active calcium (OS-JOSÉ MIGUEL) 500 mg calcium (1,250 mg) tabletIndications: Age-related osteoporosis without current pathological fracture Take 1 Tablet by mouth 2 (two) times daily 90 Tablet 5 4 Active cholecalciferol (VITAMIN D-3) 50 mcg (2,000 unit) capsuleIndications :Age-related osteoporosis without current pathological fracture Take 1 Capsule by mouth once daily 100 Capsule 5 4 Active amLODIPine (NORVASC) 5 mg tabletIndications: Primary hypertension Take 1 Tablet by mouth once daily 90 Tablet 1 5 Active acetaminophen (TYLENOL) 500 mg tabletIndications: Primary hypertension Take 1 Tablet by mouth every 6 (six) hours as needed for pain 60 Tablet 5 Active atorvastatin (LIPITOR) 40 mg tabletIndications: Elevated LDL cholesterol level Take 1 Tablet by mouth once daily 90 Tablet 1 5 Active levothyroxine 75 mcg tabletIndications: Other specified hypothyroidism Take 1 Tablet by mouth once daily TAKE 1 TABLET BY MOUTH DAILY 90 Tablet 1 5 Active blood pressure monitorIndications :Primary hypertension Pt has HTN- Code I10 Check BP everday 1 Kit 5 Active hydroCHLOROthiazid e (HYDRODIURIL) 25 mg tabletIndications: Primary hypertension Take 1 Tablet by mouth once daily 90 Tablet 5 Active Active Problems Problem Noted Date Diagnosed Date Gastroesophageal reflux disease without esophagi tis 06/11/2024 Age-related osteoporosis wit hout current pathological fracture 05/22/2022 Overview (10/05/2024): Bone Densitometer- [facility] 09/28/2024 Osteoporosis Refuses to be on medication. Needs a [facility] because of Bone pain. Pt referred Calcium and Vit d Elevated LDL cholesterol level 03/13/2022 Primary hypertension 03/09/2022 Other specified hypothyroidism 03/09/2022 Midline low back pain without sciatica 2 Overview (03/09/2022): Referred to [facility] Had MRI [address] [facility] [address] by previous MD Mild disc herniation L3-4, L4-5 Broad based posterior disc bulge with small central protrusion and L5-S1 minimal broad based disc bulge Encounters Date Type Department Care Team Description 02/15/2025 Results Follow-Up [address] [phone] Chau Oliver MD 02/11/2025 10:20 AM EDT Office Visit [address] [phone] Chau Oliver MD Martinez, Celestia Primary hypertension (Primary Dx); Elevated LDL cholesterol level; Other specified hypothyroidism 01/06/2025 Interim Notes [address] [address] Chau Oliver MD Primary hypertension (Primary Dx) 12/24/2024 2:00 PM EST Office Visit [facility] [address] [place] [phone] Chau Oliver MD Rodriguez, Anabel Primary hypertension; Elevated LDL cholesterol level; Other specified hypothyroidism from Last 3 Months Immunizations Immunization Administration Dates Next Due Flu, High Dose, 65y+, Fluzone High Dose 08/06/20 22 PFIZER COVID VACCINE, PURPLE CAP, 12+ 01/14/2021 ,12/22/2020 PNEUMOCOCCAL CONJUGATE PCV 20 (Prevnar) 05/29/20 24 PNEUMOCOCCAL POLYSACCHARIDE PPV23 04/03/2023,04/2022 PPD 03/09/2022 TDAP 03/09/2022 Social History Tobacco Use Types Packs/Day Years Used Date Smoking Tobacco: Never Passive Smoke Exposure: Never Smokeless Tobacco: Never Tobacco Cessation:Counseling Given: No Alcohol Use Standard Drinks/Week Comments Never 0 [...] Sign Reading Time Taken Comments Blood Pressure 140/80 02/11/2025 10:15 AM EDT Pulse 86 02/11/2025 10:15 AM EDT Temperature 36 ??C (96.8 ??F) 02/11/2025 10: 15 AM EDT Respiratory Rate 18 02/11/2025 10:1 5 AM EDT Oxygen Saturation 97% 02/11/2025 10: 15 AM EDT Inhaled Oxygen Concentration - - Weight 57.5 kg (126 lb 12.8 oz) 025 10:15 AM EDT Height 157.5 cm (5' 2 ) 02/11/2025 10:1 5 AM EDT Body Mass Index 23.19 02/11/2025 10:15 AM EDT Plan of Treatment Health Maintenance Due Date Last Done Comments Advanced Care Planning [address] CT Colonography 02/24/1988 FIT/gFOBT 02/24/1988 Fecal DNA 02/24/1988 Flexible Sigmoidoscopy 02/24/1988 Imm-Zoster, Recombinant (1 of 2) 1993 [id number] (3 - season) 2024 021, 12/22/2020 Imm-Influenza (#1) 2024 08/06/2022 Medicare Annual Wellness Visit 01/14/2025 01/15/2024 , 08/17/2022 Depression Monitoring 03/23/2025 12/24/2024 , 12/21/2022, 03/09/2022 Tobacco Screening 12/24/2025 12/24/2024 Breast Cancer Screening (Mammogram) 01/01/2026 01/01/2025, 01/30/2024, 01/30/2024, Additional history exists Falls Prevention 02/11/2026 02/11/2025, , 04/03/2023, Additional history exists TSH Monitoring 02/11/2026 02/11/2025, 01/02, 07/09/2023, Additional history exists Imm-DTaP/Tdap/Td (2 - Td or Tdap) 03/09/2032 022 Colonoscopy 05/23/2033 05/23/2023 Colorectal Cancer Screening 05/23/2033 Imm-Pneumococcal 65+ Completed 05/29/2024, 04/03/2023, 03/09/2022 Alcohol and Drug Screen Completed 12/24/19, 01/15/2024, 12/21/2022, Additional history exists Bone Density Screening Completed , 09/28/2024, 09/28/2024, Additional history exists Procedures Procedure Name Priority Date/Time Associated Diagnosis Comments TSH W/RFLX FREE T4 Routine 02/11/2025 10 :27 AM EDT Other specified hypothyroidism HISTORIC DEXA SCAN 01/01/2025 3: 00 AM EST HISTORIC MAMMOGRAM 01/01/2025 3: 00 AM EST REFERRAL FOR COLONOSCOPY Routine 05/23/2023 3:00 AM EDT Health care maintenance from Last 3 Months or Most Recently Relevant to Health Maintenance Results * TSH W/RFLX FREE T4 (02/11/2025 10:27 AM EDT) TSH W/REFLEX TO FT4 0.71 0.40 - 4.50 mIU/L [facility] Blood Blood / Unknown 02/11/2025 1 0:27 AM EDT 02/11/2025 10:28 AM EDT us Chau Oliver MD LAB - BLOOD DRAW Final Result [facility] [address] [address], [facility] [address] [address] * HISTORIC MAMMOGRAM (01/01/2025 3:00 AM EST) 01/01/2025 3:00 AM EST us Chau Oliver MD IMG MAMMO Final Result * HISTORIC DEXA SCAN (01/01/2025 3:00 AM EST) 01/01/2025 3:00 AM EST us Chau Oliver MD IMG DXA Final Result * REFERRAL FOR COLONOSCOPY (05/23/2023 3:00 AM EDT) 05/23/2023 3:00 AM EDT us Chau Oliver MD REFERRAL Edited Result - Final from Last 3 Months or Most Recently Relevant to Health Maintenance Insurance [place] MEDICA[place] DENTAL GENERIC - DENTAL [facility] MEDICARE COMPLETE Care Teams Software Engineer Developer Relationship Specialty Start Date End Date Chau Oliver MD [address] [place] [address] PCP - General Internal Medicine 12/21/21
--- OUTSIDE RECORDS SUMMARY | 2025-03-01 09:59 | XMS_ITS | Clinical Summary ---
Author Organization [facility] Address [address] [place] [address] Phone Care Team Providers Care Associate Music Professor Name Role Phone Chau Oliver MD Primary Care Provider Allergies Active Allergy Reactions Criticality Noted Date [...] Date Site/Laterality Comments SHOULDER SURGERY Bilateral PROCEDURE: [place] UNLISTED PROCEDURE SHOULDER HYSTERECTOMY N/A PROCEDURE: HISTORICAL [...] 07/15/2024 9:44 AM EDT Plan of Treatment Health Maintenance Due Date Last Done Comments Zoster Vaccines (1 of 2) 1993 RSV Immunization Adult Patients (1 - 1-dose 75+ series) 2018 Falls Risk Assessment 10/13/2022 Medicare Annual Wellness Visit 10/13/2022 Social Influencers of Health Screening 10/13/2022 Depression Screening 12/21/2023 12/21/2022 COVID-19 Vaccine ( - season) 2024 01/14/2021, 12/22/2020 Hypertension/CHF/CAD Annual BMP Blood Test 09/28/2024 Influenza Vaccine (Season Ended) 2025 08/06/2022, 08/25/2021 Cholesterol Screening (Lipid Panel) 01/16/2029 01/17/2024, 08/06/2022, [...] age to complete this topic Meningococcal B Vaccine Aged Out No l onger eligible based on patient's age to complete [...] probability of hip fracture of 6.0%. Code 46392 -------- FINAL REPORT -------- Dictated By: Tony Baron Dictated Date: 09/28/2024 09:58 ET Assigned Physician: Tony Baron Reviewed and Electronically Signed By: Tony Baron Signed Date: 09/28/2024 10:00 ET Workstation ID: [id number] Transcribed By: Self Edit Transcribed Date: 09/28/2024 [...] density of the femurs bilaterally is 0.812 gm/sm9srvpx is 81% of that of young normals [...] probability of hip fracture of 6.0%. Code 54444 -------- FINAL REPORT -------- Dictated By: Tony Baron Dictated Date: 09/28/2024 09:58 ET Assigned Physician: Tony Baron Reviewed and Electronically Signed By: Tony Baron Signed Date: 09/28/2024 10:00 ET Workstation ID: [id number] Transcribed By: Self Edit Transcribed Date: 09/28/2024 09:58 ET us Miryam Butler MD IMG DXA PROCEDURES Final Result from Last 3 Months or Most Recently Relevant to Health Maintenance Insurance [employer] MEDICARE Care Teams Associate Music Professor Relationship Specialty Start Date End Date Chau Oliver MD [address] [place] [address] PCP - General Internal Medicine 03/29/22
--- OUTSIDE RECORDS SUMMARY | 2025-03-01 09:59 | XMS_ITS | Encounter Summary ---
Author Organization [facility] Address [address] [place] [address] Care Team Providers Care Television Agent Name Role Phone Chau Oliver MD Primary Care Provider [phone] Encounter Details Date Type Department Care Team (Late st Contact Info) Description 02/26/2022 Dental Interim Note [facility] Dental [address] [place] [phone] Fany Nina, DMD [address] [place] [address] Social History Tobacco Use Types Packs/Day Years [...] on filedocumented in this encounter Care Teams Television Agent Relationship Specialty Start Date End Date Chau Oliver MD [address] [place] [address] PCP - General Internal Medicine 12/21/21 documented as of this encounter
== END 2025-03-01 09:30 | disposition home or self-care (01) ==
PROVIDERS: PCP Internal Medicine; Visit Provider Nurse Practitioner Family
DX: M54.16 Radiculopathy, lumbar region (principal); M48.061 Spinal stenosis, lumbar region without neurogenic claudication; M25.561 Pain in right knee; M25.562 Pain in left knee; M47.817 Spondylosis without myelopathy or radiculopathy, lumbosacral region; M51.369 Other intervertebral disc degeneration, lumbar region without mention of lumbar back pain or lower extremity pain; G96.191 Perineural cyst
CPT/HCPCS: 99214

== ENCOUNTER 2025-03-01 09:10 | Outpatient (REF) | payer MEDICARE, SELFPAY ==
--- NOTE | ~2025-03-01 | XR_ITS ---
CLINICAL HISTORY: M25.561 - Pain in right knee AP standing view of bilateral knees, two views of right knee and two views of the left knee Comparison: None Findings: Bones intact. No dislocations. No significant loss of joint space, osteophytes, or erosions. No joint effusion. No radiopaque foreign body. IMPRESSION: 1. No acute findings. This document has been electronically signed by: Dale Cortez MD on 03/03/2025 15:55:24
--- OUTSIDE RECORDS SUMMARY | 2025-03-01 10:56 | XMS_ITS | Encounter Summary ---
Author Organization [facility] Address [address] [place] [address] Care Team Providers Care Pickers Material Handlers Name Role Phone Chau Oliver MD Primary Care Provider [phone] Encounter Details Date Type Department Care Team (Late st Contact Info) Description 03/15/2022 Dental Interim Note [facility] Dental [address] [place] [address] Fany Nina, SUHA [address] [place] [address] Social History Tobacco Use Types Packs/Day Years [...] documented as of this encounter Care Teams Pickers Material Handlers Relationship Specialty Start Date End Date Chau Oliver MD [address] [place] [address] PCP - General Internal Medicine 12/21/21 documented as of this encounter
--- OUTSIDE RECORDS SUMMARY | 2025-03-01 10:56 | XMS_ITS | Encounter Summary ---
Author Organization [facility] Address [address] [place] [address] Care Team Providers Care Band Machine Operator Name Role Phone Chau Oliver MD Primary Care Provider [phone] Encounter Details Date Type Department Care Team (Late st Contact Info) Description 02/26/2022 Dental Interim Note [facility] Dental [address] [place] [phone] Fany Nina, DMD [address] [place] [address] Social History Tobacco Use Types Packs/Day Years [...] on filedocumented in this encounter Care Teams Band Machine Operator Relationship Specialty Start Date End Date Chau Oliver MD [address] [place] [address] PCP - General Internal Medicine 12/21/21 documented as of this encounter
--- OUTSIDE RECORDS SUMMARY | 2025-03-01 10:56 | XMS_ITS | Encounter Summary ---
Author Organization [facility] Address [address] [address] Care Team Providers Care Product Development Assistant Name Role Phone Chau Oliver MD Primary Care Provider Encounter Details Date Type Department Care Team (Late st Contact Info) Description 02/15/2025 Results Follow-Up [facility] [address] [place] [address] Chau Oliver MD [address] [place] [address] Social History Tobacco Use Types Packs/Day Years [...] documented as of this encounter Care Teams Product Development Assistant Relationship Specialty Start Date End Date Chau Oliver MD [address] [place] [address] PCP - General Internal Medicine 12/21/21 documented as of this encounter
--- OUTSIDE RECORDS SUMMARY | 2025-03-01 10:56 | XMS_ITS | Clinical Summary ---
Author Organization [facility] Address [address] [place] [address] Care Team Providers Care Business Services Administrator Name Role Phone Chau Oliver MD Primary Care Provider [phone] Source Comments PLEASE NOTE, if this patient [...] pathological fracture 05/22/2022 Overview (10/05/2024): Bone Densitometer- [facility] 09/28/2024 Osteoporosis Refuses to be on medication. Needs a [facility] because of Bone pain. Pt referred Calcium and Vit d Elevated LDL cholesterol level 03/13/2022 Primary hypertension 03/09/2022 Other specified hypothyroidism 03/09/2022 Midline low back pain without sciatica 2 Overview (03/09/2022): Referred to [facility] Had MRI [address] [facility] [address] by previous MD Mild disc herniation L3-4, L4-5 Broad based posterior disc bulge with small central protrusion and L5-S1 minimal broad based disc bulge Encounters Date Type Department Care Team Description 02/15/2025 Results Follow-Up [address] [address] Chau Oliver MD 02/11/2025 10:20 AM EDT Office Visit [address] [phone] Chau Oliver MD Martinez, Celestia Primary hypertension (Primary Dx); Elevated LDL cholesterol level; Other specified hypothyroidism 01/06/2025 Interim Notes [address] [address] Chau Oliver MD Primary hypertension (Primary Dx) 12/24/2024 2:00 PM EST Office Visit [facility] [address] [place] [phone] Chau Oliver MD Rodriguez, Anabel Primary hypertension; [...] 02/24/1988 Imm-Zoster, Recombinant (1 of 2) 1993 [id number] (3 - season) 2024 021, 12/22/2020 Imm-Influenza [...] TO FT4 0.71 0.40 - 4.50 mIU/L [employer] [facility] Blood Blood / Unknown 02/11/2025 1 0:27 AM EDT 02/11/2025 10:28 AM EDT us Chau Oliver MD LAB - BLOOD DRAW Final Result [employer] [address] [id number], [employer] [address] [id number] * HISTORIC MAMMOGRAM (01/01/2025 3:00 AM EST) [...] Most Recently Relevant to Health Maintenance Insurance [place] DENTAL GENERIC - [facility] [place] [address] Care Teams Business Services Administrator Relationship Specialty Start Date End Date Chau Oliver MD [address] [place] [address] PCP - General Internal Medicine 12/21/21
--- OUTSIDE RECORDS SUMMARY | 2025-03-01 10:56 | XMS_ITS | Clinical Summary ---
Author Organization [facility] Address [address] [place] [address] Phone Care Team Providers Care Metal Machinist Name Role Phone Chau Oliver MD Primary Care Provider [phone] Allergies Active Allergy Reactions Criticality Noted Date [...] Date Site/Laterality Comments SHOULDER SURGERY Bilateral PROCEDURE: [place] UNLISTED PROCEDURE SHOULDER HYSTERECTOMY N/A PROCEDURE: HISTORICAL [...] probability of hip fracture of 6.0%. Code 71523 -------- FINAL REPORT -------- Dictated By: Tony Baron Dictated Date: 09/28/2024 09:58 ET Assigned Physician: Tony Baron Reviewed and Electronically Signed By: Tony Baron Signed Date: 09/28/2024 10:00 ET Workstation ID: [id number] Transcribed By: Self Edit Transcribed Date: 09/28/2024 [...] density of the femurs bilaterally is 0.812 gm/oo3okawl is 81% of that of young normals [...] probability of hip fracture of 6.0%. Code 97539 -------- FINAL REPORT -------- Dictated By: Tony Baron Dictated Date: 09/28/2024 09:58 ET Assigned Physician: Tony Baron Reviewed and Electronically Signed By: Tony Baron Signed Date: 09/28/2024 10:00 ET Workstation ID: [id number] Transcribed By: Self Edit Transcribed Date: 09/28/2024 09:58 ET us Miryam Butler MD IMG DXA PROCEDURES Final Result from Last 3 Months or Most Recently Relevant to Health Maintenance Insurance [employer] MEDICARE Care Teams Metal Machinist Relationship Specialty Start Date End Date Chau Oliver MD [address] [place] [address] PCP - General Internal Medicine 03/29/22
--- OUTSIDE RECORDS SUMMARY | 2025-03-01 10:56 | XMS_ITS | Encounter Summary ---
Author Organization [facility] Address [address] [place] [address] Care Team Providers Care Whitewasher Name Role Phone Chau Oliver MD Primary Care Provider [phone] Encounter Details Date Type Department Care Team (Late st Contact Info) Description 03/22/2022 Dental Interim Note [facility] Dental [address] [place] [address] Fany Nina, SUHA [address] [place] [address] Social History Tobacco Use Types Packs/Day Years [...] documented as of this encounter Care Teams Whitewasher Relationship Specialty Start Date End Date Chau Oliver MD [address] [place] [address] PCP - General Internal Medicine 12/21/21 documented as of this encounter
== END 2025-03-01 09:11 | disposition home or self-care (01) ==
LOC: HO.XRAY 09:10
PROVIDERS: PCP Internal Medicine; Visit Provider Nurse Practitioner Family
DX: M54.16 Radiculopathy, lumbar region (principal); M48.061 Spinal stenosis, lumbar region without neurogenic claudication; M25.561 Pain in right knee; M25.562 Pain in left knee; M47.817 Spondylosis without myelopathy or radiculopathy, lumbosacral region; M51.369 Other intervertebral disc degeneration, lumbar region without mention of lumbar back pain or lower extremity pain; G96.191 Perineural cyst
CPT/HCPCS: 73562; 99212

== ENCOUNTER → 2025-03-01 09:50 | Outpatient (BNV) | payer MEDICARE, SELFPAY | PROVIDERS: PCP Internal Medicine; Visit Provider Radiology Diagnostic Radiology | DX: M25.561 Pain in right knee (principal) | CPT/HCPCS: 73562 ==

== ENCOUNTER 2025-03-18 06:17 | Outpatient (REF) | payer MEDICARE, SELFPAY ==
--- NOTE | ~2025-03-18 | FL_ITS ---
EXAMINATION: FL GUIDANCE ONLY HISTORY: M47.817 - Spondylosis without myelopathy or radiculopathy, lumbosacral r... COMPARISON: None available. TECHNIQUE: Fluoroscopy time: 0.2 minutes. Cumulative Dose: 1.27 mGy. DAP: 0.0190 mGym2 Images: 3. FINDINGS: Fluoroscopic spot films of the lower lumbar spine demonstrate needles and contrast material in the regions of the bilateral L3-4, L4-5, and L5-S1 facet joints. FL/FL guidance in treatment room IMPRESSION: Fluoroscopy during procedure. Please see procedure report for additional information. Electronically signed by: Alcon Gunn MD 03/18/2025 11:47 AM EDT
== END 2025-03-18 06:18 | disposition home or self-care (01) ==
LOC: CF 06:17
PROVIDERS: Visit Provider Internal Medicine
DX: M47.817 Spondylosis without myelopathy or radiculopathy, lumbosacral region (principal); M81.0 Age-related osteoporosis without current pathological fracture
CPT/HCPCS: 64493; 64494; J2003; J2795; Q9967

== ENCOUNTER 2025-03-18 10:16 | Outpatient (AMB) | payer MEDICARE, SELFPAY ==
[2025-03-18 10:32] VITALS: BP 106/68; PULSE 89; RESP 16; O2SAT 98
--- NOTE | 2025-03-18 10:32 | A.OFFVIS_ITS ---
Vital Signs 03/18/25 10:32 03/18/25 11:15 BP 106/68 126/70 Blood Pressure Location Lt brachial Lt brachial Position Sitting Sitting Respiration 16 16 Pulse 89 80 Pulse Source Pulse Oximeter Pulse Oximeter Pulse Oximetry (%) 98 98 Oxygen Delivery Method Room Air Room Air Intake Visit Reasons: Bertrand Dx L3-L4-DR-L5 MBB/ativan Neonatal Intensive Care Unit Nurse Required: Yes Neonatal Intensive Care Unit Nurse Services: Neonatal Intensive Care Unit Nurse Present Neonatal Intensive Care Unit Nurse Name: Tino [id number] Allergies iron Allergy (Unknown, Verified 03/18/25 10:34) Rash Penicillins Allergy (Unknown, Verified 03/18/25 10:34) Rash Medication List - Last Reconciled 03/18/25 by Jessica Leiva LPN amlodipine 5 mg PO DAILY atorvastatin 40 mg PO DAILY famotidine 40 mg PO DAILY fluticasone propionate 50 mcg/actuation 1 spray intranasal DAILY hydrochlorothiazide 25 mg PO DAILY levothyroxine 75 mcg PO DAILY lidocaine 5% leave on most painful area for up to 12 hrs topical loratadine 10 mg PO DAILY PRN lorazepam (Ativan) 1 mg PO ONCE miscellaneous medical supply As directed naloxone 4 mg/actuation (Narcan) 4 mg intranasal Q2M PRN omeprazole 20 mg PO DAILY oxycodone 5 mg PO BID PRN 10 days tramadol 50 mg PO BID PRN 10 days HPI HPI Bertrand Dx L3-L4-DR-L5 MBB/ativan: Details: Patient presents for scheduled procedure. Denies any recent cough, cold, i nfection, fever or other significant changes in medical history since last office visit. [facility] Medical History Age-related osteoporosis without current pathological fracture GERD without esophagitis Midline low back pain with sciatica Hypothyroidism Hypertension Physical Exam Vital Signs: Last Vital Signs Pulse 80 03/18/25 11:15 Resp 16 03/18/25 11:15 BP 126/70 03/18/25 11:15 Pulse Ox 98 03/18/25 11:15 Oxygen Delivery Method Room Air 03/18/25 11:15 Office Procedures Details: Lumbar Medial Branch Block, Bilateral L3, L4 medial branches and L5 Dorsal Ramus (2 levels, 3 nerves) After obtaining written consent, pre-procedure blood pressure and pulse were recorded and are in the nursing record for review. The patient was placed in a prone position. The respective lumbosacral area was prepped with chloraprep and draped in sterile fashion. The skin over the target medial branch nerves was anesthetized with 0.5% lidocaine. A 22 gauge 3.5 inch needle was inserted into the target medial branch nerve under fluoroscopic guidance. No paresthesias were elicited with needle placement and aspiration was negative for blood and CSF. Next, 0.2cc of omnipaque 180 was injected to verify positioning. Next 0.5 ml 0.5% ropivicaine was injected (0.5cc total per level). The identical procedure was performed at the remaining levels. The skin was cleansed and a sterile bandage was applied. Following the procedure the patient's vital signs were stable. The patient tolerated the procedure well and no complications were encountered. Following the procedure the patient's vital signs were stable. The patient was discharged home in good condition with post-procedural instructions. Time Out: Immediately prior to the procedure, the following was verbally confirmed that there is a signed consent form and that the correct patient, planned procedure, site and side are consistent with documentation and that necessary equipment and/or blood products are available prior to the start of the case. Complications: none EBL: <5 cc 85875 - with Fluoroscopy (L3-L4) 84079 - second level with Fluoroscopy (L3-L4-L5) (bilateral) Procedure code (CPT) selection complete Assessment & Plan Assessment & Plan (1) Lumbosacral spondylosis: Code(s): M47.817 - Spondylosis without myelopathy or radiculopathy, lumbosacral region Category: Medical Plan Patient is status post bilateral diagnostic lumbar medial branch blocks. Patient tolerated procedure well and was discharged home in stable condition with discharge instructions. All questions were answered. We will follow-up via telephone or in clinic to assess response to therapy. A follow-up appointment was made during today's visit. Orders: Orders FL guidance in treatment room Today Kira Clemens APRN, BOTTLE HOUSE PUMPER M47.817 - Spondylosis without myelopathy or radiculopathy, lumbosacral region AMB Medial Branch Block - Lumbar/Sacral Today Jorge Rene MD M47.816 - Spondylosis without myelopathy or radiculopathy, lumbar region Medications: New lorazepam (Ativan) Take 30 minutes prior to arrival to procedure 1 mg PO ONCE 1 tab 0RF anxiety Kira Clemens, MERINGUER, BOTTLE HOUSE PUMPER Coding Level of Care Code Procedure Only Diagnoses Lumbosacral spondylosis M47.817 CPT Codes Medial Branch Block Lumbar/Sacral1 - Branch Block Lumb/Sac 1: 94368 - with Fluoroscopy (L3-L4) ([id number]) Medial Branch Block Lumbar/Sacral1 - Branch Block Lumb/Sac 2: 18623 - second level with Fluoroscopy (L3-L4-L5) ([id number])
[2025-03-18 11:15] VITALS: BP 126/70; PULSE 80; RESP 16; O2SAT 98
--- OUTSIDE RECORDS SUMMARY | 2025-03-18 11:15 | XMS_ITS | Encounter Summary ---
Author Organization [facility] Address [address] [place] [address] Care Team Providers Care Weight Loss Counselor Name Role Phone Chau Oliver MD Primary Care Provider [phone] Encounter Details Date Type Department Care Team (Late st Contact Info) Description 02/26/2022 Dental Interim Note [facility] Dental [address] [place] [phone] Fany Nina, DMD [address] [place] [address] Social History Tobacco Use Types Packs/Day Years [...] on filedocumented in this encounter Care Teams Weight Loss Counselor Relationship Specialty Start Date End Date Chua Oliver MD [address] [place] [address] PCP - General Internal Medicine 12/21/21 documented as of this encounter
--- OUTSIDE RECORDS SUMMARY | 2025-03-18 11:15 | XMS_ITS | Encounter Summary ---
Author Organization [facility] Address [address] [place] [address] Care Team Providers Care Um Specialist Name Role Phone Chau Oliver MD Primary Care Provider [phone] Encounter Details Date Type Department Care Team (Late st Contact Info) Description 03/15/2022 Dental Interim Note [facility] [address] [place] [address] Fany Nina, SUHA [address] [place] [address] Social History Tobacco Use Types Packs/Day Years [...] documented as of this encounter Care Teams Um Specialist Relationship Specialty Start Date End Date Chau Oliver MD [address] [place] [address] PCP - General Internal Medicine 12/21/21 documented as of this encounter
--- OUTSIDE RECORDS SUMMARY | 2025-03-18 11:15 | XMS_ITS | Encounter Summary ---
Author Organization [facility] Address [address] [place] [address] Care Team Providers Care Clinical Rehabilitation Aide Name Role Phone Chau Oliver MD Primary Care Provider [phone] Encounter Details Date Type Department Care Team (Late st Contact Info) Description 03/22/2022 Dental Interim Note [facility] [address] [place] [address] Fany Nina, SUHA [address] [place] [address] Social History Tobacco Use Types Packs/Day Years [...] documented as of this encounter Care Teams Clinical Rehabilitation Aide Relationship Specialty Start Date End Date Chau Oliver MD [address] [place] [address] PCP - General Internal Medicine 12/21/21 documented as of this encounter
--- OUTSIDE RECORDS SUMMARY | 2025-03-18 11:15 | XMS_ITS | Clinical Summary ---
Author Organization [facility] Address [address] [place] [address] Phone Care Team Providers Care Lubricating Machine Tender Name Role Phone Chau Oliver MD Primary Care Provider [phone] Allergies Active Allergy Reactions Criticality Noted Date [...] capsule (20 mg total) by mouth. 03/25/2024 03/20/20 Active neomycin-polymy luis-dexamethame thasone (POLYDEX) 3.5 mg/g-10,000 unit/g-0.1 % ointment APPLY THIN LAYER IN BOTH EYES EVERY NIGHT AT BEDTIME 02/18/2025 Active loratadine (CLARITIN) 10 mg tablet Take 1 tablet (10 mg total) by mouth once daily as needed. 05/29/2024 Active hydroCHLOROthia zide (HYDRODIURIL) 25 mg tablet Take 1 tablet (25 mg total) by mouth 1 (one) time each day. 02/11/2025 Active doxycycline (ADOXA) 100 mg tablet TAKE 1 TABLET BY MOUTH TWICE DAILY FOR 2 WEEKS 02/18/2025 Active famotidine (PEPCID) 40 mg tablet Take 1 tablet (40 mg total) by mouth daily. 05/14/2024 Active fluticasone propionate (FLONASE) 50 mcg/actuation nasal spray SHAKE LIQUID AND USE 1 SPRAY IN BOTH NOSTRILS ONCE DAILY 05/29/2024 Active acetaminophen (TYLENOL) 500 mg tablet Take 1 tablet (500 mg total) by mouth every 6 (six) hours if needed. for pain 12/24/2024 Active calcium carbonate (OS-JOSÉ MIGUEL) 1,250 mg (500 mg elemental calcium) tablet Take 500 mg by mouth 2 times daily. 09/03/2024 Active cholecalciferol (VITAMIN D-3) 50 mcg (2,000 unit) capsule Take 1 capsule (2,000 Units total) by mouth daily. 09/03/2024 Active Active Problems Problem Noted Date Diagnosed Date Pain in right leg 03/10/2025 Major depression, single episode 03/10/2025 Neck pain, chronic 03/10/2025 Assessment & Plan (03/10/2025 2:03 PM EDT): Ms. Trung Logan describes about 10 years of neck pain. She has pain in the left periscapular region as well as the shoulder and all of the proximal left arm. Shoulder surgery in [place] in the distant past and is not sure if her shoulder pain is related to her neck or her shoulder trouble. She did have good strength in all major muscle groups of the upper and lower extremities. There was some giveaway weakness in the left deltoid and biceps secondary to pain but she seemed to have intact strength. In addition, she was tender to palpation around left shoulder. I am going to send her for x-rays of the cervical spine and her left shoulder. She will go to physical therapy and I will also refer her to orthopedics. Will follow-up with us at the conclusion of her therapy. Chronic left shoulder pain 03/10/2025 Assessment & Plan (03/10/2025 2:05 PM EDT): Ms. Trung Logan describes left shoulder pain. She is status post left shoulder surgery over 10 years ago in [place]. She is not sure if the pain is coming from her neck or if it is residual pain after her shoulder surgery. Things have gotten worse over the past 3 to 5 months. She had good strength in all major muscle groups with some giveaway weakness in the left deltoid. She was tender at the left shoulder and passive range of motion of the left shoulder did cause pain. I am going to get x-rays of her left shoulder along with the x-rays of her neck. She will go to orthopedics for consultation and we will see her back here after she completes a course of physical therapy. Gastroesophageal reflux disease without esophagi tis 06/11/2024 Age-related osteoporosis wit hout current pathological fracture 05/22/2022 Overview (03/10/2025): Refuses to be on medication. Ne[facility] a [facility] because of Bone pain Calcium and Vit d Elevated LDL cholesterol level 03/13/2022 Primary hypertension 03/09/2022 Other specified hypothyroidism 03/09/2022 Midline low back pain without sciatica 2 Overview (03/10/2025): [facility]erred to [facility] Had MRI [facility] [address] by previous Mild disc herniation L3-4, L4-5 Broad based posterior disc bulge with small central protrusion and L5-S1 minimal broad based disc bulge Encounters Date Type Department Care Team Description 03/10/2025 1:00 PM EDT Consult Neurosurgery [place] [address] [place] [address] Lance Brown PA Neck pain, chronic (Primary Dx); Perineural cyst; Spinal stenosis, lumbar region, without neurogenic claudication; Radiculopathy, lumbar region; Chronic left shoulder pain from Last 3 Months Immunizations Name Administration Dates Next Due Influenza Quadravalent, 0.5m l (Fluad) 65yo and older 08/25/2021 Influenza Quadravalent, 0.5m l (Fluzone High-dose) 65yo and older 08/06/2022 Influenza trivalent, with pr eservative (Fluzone; Afluria) 6mo and older 07/26/2020,08/11/2019,11/27/2017,01/09 PPD Test 03/09/2022 Pneumococcal conjugate 13 va lent (Prevnar 13, PCV13) 2mo and older 09/01/2021,10/04/2020 Pneumococcal conjugate 20 va lent (Prevnar 20, PCV 20) 2mo and older 05/29/2024 Pneumococcal polysaccharide 23 valent (Pneumovax 23) 2yo and older 04/03/2023,03/09/2022,08/04/2007 Tdap Tetanus diptheria acell ular pertussis (Boostrix; Adacel) 7yo and older 03/09/2022,03/25/2014 Zoster Live 03/25/2014 Surgical History Surgery Date Site/Laterality Comments SHOULDER SURGERY Bilateral PROCEDURE: NV UNLISTED PROCEDURE SHOULDER HYSTERECTOMY N/A PROCEDURE: HISTORICAL HYSTERECTOMY Medical History Medical History Date Comments Hypertension Low back pain Depression Social History Tobacco Use Types Packs/Day Years Used Date Smoking Tobacco: Never Smokeless Tobacco: Never Tobacco Cessation:Counseling Given: Not Answered Comments Unknown Sex and Gender Information Value Date Recorded Sex Assigned at Not on file Legal Sex Female 4:49 AM EST Gender Identity Not on file Sexual Orientation Not on file Obstetrics History Last Filed Vital Signs Vital Sign Reading Time Taken Comments Blood Pressure 112/74 07/15/2024 9:44 AM EDT Sit ting L Arm Pulse 74 07/15/2024 9:44 AM EDT Temperature - - Respiratory Rate - - Oxygen Saturation - - Inhaled Oxygen Concentration - - Weight 54.4 kg (120 lb) 03/10/2025 1:03 PM EDT Height 157.5 cm (5' 2 ) 03/10/2025 1:03 PM EDT Body Mass Index 21.95 03/10/2025 1:03 PM EDT Plan of Treatment Upcoming Encounters Date Type Department Care Team (Late st Contact Info) Description 04/08/2025 9:00 AM EDT Evaluation [address] [address] Kalpesh Conway, PT [address] [place] [address] Health Maintenance Due Date Last Done Comments Zoster Vaccines (2 of 3) 05/20/2014 03/25/2014 RSV Immunization Adult Patients (1 - 1-dose 75+ series) 2018 Falls Risk Assessment 10/13/2022 Medicare Annual Wellness Visit 10/13/2022 Social Influencers of Health Screening 10/13/2022 COVID-19 Vaccine (3 - 2023- season) 2024 01/14/2021, 12/22/2020 Hypertension/CHF/CAD Annual BMP Blood Test 09/28/2024 Influenza Vaccine (Season Ended) 2025 08/06/2022, 08/25/2021, 07/26/2020, Additional history exists Depression Screening 12/24/2025 12/24/2024 Cholesterol Screening (Lipid Panel) 01/16/2029 01/17/2024, 08/06/2022, 03/12/2022 DTaP,Tdap,and Td Vaccines (3 - Td or Tdap) 03/09/2032 03/09/2022, 03/25/2014 Osteoporosis Screening (Bone Density Screening) 09/28/2034 09/28/2024 [...] probability of hip fracture of 6.0%. Code 88568 -------- FINAL REPORT -------- Dictated By: Tony Baron Dictated Date: 09/28/2024 09:58 ET Assigned Physician: Tony Baron Reviewed and Electronically Signed By: Tony Baron Signed Date: 09/28/2024 10:00 ET Workstation ID: [id number] Transcribed By: Self Edit Transcribed Date: 09/28/2024 [...] density of the femurs bilaterally is 0.812 gm/ko8fsfyb is 81% of that of young normals [...] probability of hip fracture of 6.0%. Code 12370 -------- FINAL REPORT -------- Dictated By: Tony Baron Dictated Date: 09/28/2024 09:58 ET Assigned Physician: Tony Baron Reviewed and Electronically Signed By: Tony Baron Signed Date: 09/28/2024 10:00 ET Workstation ID: [id number] Transcribed By: Self Edit Transcribed Date: 09/28/2024 09:58 ET Miryam Butler MD IM DXA PROCEDURES Final Result from Last 3 Months or Most Recently Relevant to Health Maintenance Insurance [employer] MEDICARE Care Teams Lubricating Machine Tender Relationship Specialty Start Date End Date Chau Oliver MD [address] [place] [address] PCP - General Internal Medicine 03/29/22
--- OUTSIDE RECORDS SUMMARY | 2025-03-18 11:15 | XMS_ITS | Patient Health Record ---
Author Organization [facility] Address [address] [place], [place] [id number] Care Team Providers Care Microfiche Camera Operator Name Role Phone Tati Patrick Primary Care Provider [phone] Allergies Allergen (clinical drug ingredient) Drug/Non Drug Allergy documented on EMR Reaction Allergy Type Onset Date Status naproxen Aleve dizziness, itchy, weak Drug Allergy Active aspirin / caffeine / orphenadrine Norgesic (uncoded) stomach upset,itchy Allergy Active ferrous sulfate iron (uncoded) rash Allergy Active penicillin (uncoded) rash Allergy Active Reason For Referral No Information Medications Medication SIG (Take, Route, Frequency, Duration) Notes Start Date End Date Status levothyroxine 75 mcg (0.075 mg) 1 tab(s) orally once a day for 30 days Active acetaminophen 650 mg 2 tab(s) orally niya ry 12 hours Taking 1-2 times per week 05/11/2020 Active MiraLax - 17 g orally once a day as needed for constipation for 30 day(s) 08/12/2019 Active Immunizations Vaccine Route Administration Date Status Comme nts Tdap Unknown 03/25/2014 Administered Influenza Unknown 01/10/2016 Administered Influenza Unknown 11/27/2017 Administered PPSV 23 Unknown 08/04/2007 Administered Zoster Live (ZVL) Unknown 03/25/2014 Administered Influenza IM Intramuscular 08/11/2019 Administered Influenza IM Intramuscular 07/26/2020 Administered Prevnar 13 IM Intramuscular 10/04/2020 Administered NDC 00 [id number] Social History Tobacco Use: Social History Observation Description Date Details (start date - stop date) Never Smoker NA - NA Tobacco Use Assessment MU Question Answer Notes What is your current smoking status? nonsmoker Problems Problem Type SNOMED Code ICD Code Onset Dates Problem Status W/U Status Risk Notes Problem Helicobacter pylori (02721529) Helicobacter pylori [H. pylori] as the cause of diseases classified elsewhere (B96.81) Active confirmed Treated 11/2019. Problem Hypothyroidism (75335822) Hypothyroidism , unspecified (E03.9) Active confirmed Problem Major depression, single episode (94586393) Major depressive disorder, single episode, unspecified (F32.9) Active confirmed Problem Visual difficulty (704532699) Unspecified visual loss (H54.7) Active confirmed Problem Essential hypertensi on (98570132) Essential (primary) hypertension (I10) Active confirmed Problem Gastro-esophageal reflux disease without esophagitis (554410567) Gastro-esophag eal reflux disease without esophagitis (K21.9) Active confirmed Improved after treatment for H. pylori. Symptoms resolved. Problem Constipation (50633339) Constipation, unspecified (K59.00) Active confirmed Problem Shoulder joint pain (663207463) Pain in right shoulder (M25.511) Active confirmed Problem Shoulder joint pain (882986553) Pain in left shoulder (M25.512) Active confirmed Problem Backache (443079281) Dorsalgia, unspecified (M54.9) Active confirmed Problem Pain in right leg (053719794) Pain in right leg (M79.604) Active confirmed Problem Acquired renal cysti c disease (161609591) Cyst of kidney, acquired (N28.1) Active confirmed Problem Chest pain, unspecified (R07.9) Active confirmed Problem Flushing (04177489) Flushing (R23.2) Active confirmed Problem Edema (00643061) Edema, unspecified (R60.9) Active confirmed Problem Abnormal weight loss (162283934) Abnormal weight loss (R63.4) Active confirmed Problem Pure hypercholesterolemia (041988183) Pure hypercholester olemia, unspecified (E78.00) Active confirmed Plan Of Treatment Pending Test Test Name Order Date X ray : Foot, right 03/20/2018 X ray : Leg, right 03/20/2018 X ray : Shoulder, left 03/20/2018 X ray : Shoulder, right 03/20/2018 X ray : Spines, cervical 2 views 018 X ray : Thoracic spine 2 views 05/17/201 8 occult blood feces, single 08/11/2019 EKG 01/07/2020 HELICOBACTER PYLORI AG, EIA, STOOL 08/11 HEPATITIS B SURFACE AB IMMUNITY, QN 03/04 TSH CASCADE 06/30/2020 TSH CASCADE 01/07/2020 CR Spine Lumbar 2 or 3 Views 01/11/2021 CR Spine Thoracic 2 Views 01/11/2021 Bernie Screening Digital 05/11/2020 Insurance Providers Payer Name Payer Address Payer Phone Subscriber Number Group Number Insured Name Patient Relationship to Insured Coverage Start Date Coverage End Date [employer] A[employer] Medicare Complete [address] [address] [place] [address] [id number] Santa Maguire Self - patient is the insured 1 Medical (General) History Medical History History ICD Code HTN hyperlipidemia hypothyroid Surgical History Surgery Date(Month/Year) Rotator cuff repair, first on R, then on L. 2007, 2012 Hysterectomy - unsure of what was done 1 977 Hospitalization History Reason Date(Month/Year) [facility] - Hysterectomy 1976 [facility] 5 days for abdominal p ain. 1978
--- OUTSIDE RECORDS SUMMARY | 2025-03-18 11:15 | XMS_ITS | Clinical Summary ---
Author Organization [facility] Address [address] [place] [address] Care Team Providers Care Truck Service Technician Name Role Phone Chau Oliver MD Primary Care Provider [phone] Source Comments PLEASE NOTE, if this patient [...] pathological fracture 05/22/2022 Overview (10/05/2024): Bone Densitometer- [facility] 09/28/2024 Osteoporosis Refuses to be on medication. Needs a [facility] for [facility] because of Bone pain. Pt referred Calcium and Vit d Elevated LDL cholesterol level 03/13/2022 Primary hypertension 03/09/2022 Other specified hypothyroidism 03/09/2022 Midline low back pain without sciatica 2 Overview (03/09/2022): Referred to [facility] Had MRI [address] [facility] [address] by previous MD Mild disc herniation L3-4, L4-5 Broad based posterior disc bulge with small central protrusion and L5-S1 minimal broad based disc bulge Encounters Date Type Department Care Team Description 02/15/2025 Results Follow-Up [address] [address] Chau Oliver MD 02/11/2025 10:20 AM EDT Office Visit [address] [address] Chau Oliver MD Martinez, Celestia Primary hypertension (Primary Dx); Elevated LDL cholesterol level; Other specified hypothyroidism 01/06/2025 Interim Notes [address] [address] Chau Oliver MD Primary hypertension (Primary Dx) 12/24/2024 2:00 PM EST Office Visit [facility] [address] [place] [phone] Chau Oliver MD Rodriguez, Anabel Primary hypertension; Elevated LDL cholesterol level; Other specified hypothyroidism from Last 3 Months Immunizations Immunization Administration Dates Next Due Flu, High Dose, 65y+, Fluzone High Dose 08/06/20 22 PFIZER COVID VACCINE, PURPLE CAP, 12+ 01/14/2021 ,12/22/2020 PNEUMOCOCCAL CONJUGATE PCV 20 (Prevnar) 05/29/20 24 PNEUMOCOCCAL POLYSACCHARIDE PPV23 (Pneumovax 23) 04/03/2023,03/09/2022 PPD 03/09/2022 TDAP 03/09/2022 Social History Tobacco [...] 02/24/1988 Imm-Zoster, Recombinant (1 of 2) 1993 03/25/20 14 [id number] ( season) 2024 021, 12/22/2020 Imm-Influenza (#1) 2024 08/06/2022, 0 07/26/2020, 08/11/2019, Additional history exists Medicare Annual Wellness Visit 01/14/2025 01/15/2024 , 08/17/2022 Depression Monitoring 03/23/2025 12/24/2024 , 12/21/2022, 03/09/2022 Tobacco Screening 12/24/2025 12/24/2024 Breast Cancer Screening (Mammogram) 01/01/2026 01/01/2025, 01/30/2024, 01/30/2024, Additional history exists Falls Prevention 02/11/2026 02/11/2025, , 04/03/2023, Additional history exists TSH Monitoring 02/11/2026 02/11/2025, 01/02, 07/09/2023, Additional history exists Imm-DTaP/Tdap/Td (2 - Td or Tdap) 03/09/2032 022, 03/25/2014 Colonoscopy 05/23/2033 05/23/2023 Colorectal Cancer Screening 05/23/2033 Imm-Pneumococcal 65+ Completed 05/29/2024, 04/03/2023, 03/09/2022, Additional history exists Alcohol and Drug Screen Completed 12/24/19, 01/15/2024, 12/21/2022, Additional history exists Bone Density Screening Completed , 09/28/2024, 09/28/2024, Additional history exists Procedures Procedure Name Priority Date/Time Associated Diagnosis Comments IMAGING SCANNED DOCUMENT 03/01/2025 3:00 AM EDT IMAGING SCANNED DOCUMENT 03/01/2025 3:00 AM EDT TSH W/RFLX FREE T4 Routine 02/11/2025 10 :27 AM EDT Other specified hypothyroidism HISTORIC DEXA SCAN 01/01/2025 3: 00 AM EST HISTORIC MAMMOGRAM 01/01/2025 3: 00 AM EST REFERRAL FOR COLONOSCOPY Routine 05/23/2023 3:00 AM EDT Health care maintenance from Last 3 Months or Most Recently Relevant to Health Maintenance Results * IMAGING SCANNED DOCUMENT (03/01/2025 3:00 AM EDT) Only the most recent of2 resultswithin the time period is included. 03/01/2025 3:00 AM EDT us Chau Olivre MD SCAN IMAGING Final Result * TSH W/RFLX FREE T4 (02/11/2025 10:27 AM EDT) TSH W/REFLEX TO FT4 0.71 0.40 - 4.50 mIU/L [facility] Blood Blood / Unknown 02/11/2025 1 0:27 AM EDT 02/11/2025 10:28 AM EDT us Chau Oliver MD LAB - BLOOD DRAW Final Result [facility] [address] [address], [facility] [address] [address] * HISTORIC MAMMOGRAM (01/01/2025 3:00 AM EST) [...] Most Recently Relevant to Health Maintenance [place] - DENTAL [employer] MEDICARE COMPLETE Care Teams Truck Service Technician Relationship Specialty Start Date End Date Chau Oliver MD [address] [place] [address] PCP - General Internal Medicine 12/21/21
--- OUTSIDE RECORDS SUMMARY | 2025-03-18 11:15 | XMS_ITS | Encounter Summary ---
Author Organization [facility] Address [address] [address] Care Team Providers Care Escrow Representative Name Role Phone Chau Oliver MD Primary Care Provider [phone] Encounter Details Date Type Department Care Team (Late st Contact Info) Description 02/15/2025 Results Follow-Up [facility] [address] [place] [address] Chau Oliver MD [address] [place] [address] Social History Tobacco Use Types Packs/Day Years [...] documented as of this encounter Care Teams Escrow Representative Relationship Specialty Start Date End Date Chau Oliver MD [address] [place] [address] PCP - General Internal Medicine 12/21/21 documented as of this encounter
== END 2025-03-18 11:07 | disposition home or self-care (01) ==
LOC: HO.PMCPRC 10:16
PROVIDERS: PCP Internal Medicine; Visit Provider Internal Medicine
DX: M47.817 Spondylosis without myelopathy or radiculopathy, lumbosacral region (principal)
CPT/HCPCS: 64493; 64494

== ENCOUNTER 2025-03-25 13:05 | Outpatient (AMB) | payer MEDICARE, SELFPAY ==
--- OUTSIDE RECORDS SUMMARY | 2025-03-25 13:08 | XMS_ITS | Patient Health Record ---
Author Organization [facility] Address [address] [place], [place] [address] Care Team Providers Care Airdrop Systems Technician Name Role Phone Tati Patrick Primary Care Provider Allergies Allergen (clinical drug ingredient) Drug/Non Drug [...] 13 IM Intramuscular 10/04/2020 Administered NDC 00 [id number] Social History Tobacco Use: Social History Observation Description Date Details (start date - stop date) Never Smoker NA - NA Tobacco Use Assessment MU Question Answer Notes What is your current smoking status? nonsmoker Problems Problem Type SNOMED Code ICD Code Onset Dates Problem Status W/U Status Risk Notes Problem Helicobacter pylori (89956480) Helicobacter pylori [H. pylori] as the cause of diseases classified elsewhere (B96.81) Active confirmed Treated 11/2019. Problem Hypothyroidism (92148330) Hypothyroidism , unspecified (E03.9) Active confirmed Problem Major depression, single episode (69823494) Major depressive disorder, single episode, unspecified (F32.9) Active confirmed Problem Visual difficulty (365781842) Unspecified visual loss (H54.7) Active confirmed Problem Essential hypertensi on (09411150) Essential (primary) hypertension (I10) Active confirmed Problem Gastro-esophageal reflux disease without esophagitis (480627491) Gastro-esophag eal reflux disease without esophagitis (K21.9) Active confirmed Improved after treatment for H. pylori. Symptoms resolved. Problem Constipation (19987942) Constipation, unspecified (K59.00) Active confirmed Problem Shoulder joint pain (605249772) Pain in right shoulder (M25.511) Active confirmed Problem Shoulder joint pain (239211360) Pain in left shoulder (M25.512) Active confirmed Problem Backache (287115778) Dorsalgia, unspecified (M54.9) Active confirmed Problem Pain in right leg (653737855) Pain in right leg (M79.604) Active confirmed Problem Acquired renal cysti c disease (247772953) Cyst of kidney, acquired (N28.1) Active confirmed Problem Chest pain (64845299) Chest pain , unspecified (R07.9) Active confirmed Problem Flushing (73072909) Flushing (R23.2) Active confirmed Problem Edema (71193241) Edema, unspecified (R60.9) Active confirmed Problem Abnormal weight loss (967675531) Abnormal weight loss (R63.4) Active confirmed Problem Pure hypercholesterolemia (471681948) Pure hypercholester olemia, unspecified (E78.00) Active confirmed Plan Of Treatment Pending Test Test Name Order Date X ray : Foot, right 03/20/2018 X ray : Leg, right 03/20/2018 X ray : Shoulder, left 03/20/2018 X ray : Shoulder, right 03/20/2018 X ray : Spines, cervical 2 views 018 X ray : Thoracic spine 2 views 8 occult blood feces, single 08/11/2019 EKG [...] [employer] Medicare Complete [address] [address] [place] [address] [id number] Santa Maguire Self - patient is the insured 1 Medical (General) History Medical History History ICD Code HTN hyperlipidemia hypothyroid Surgical History Surgery Date(Month/Year) Rotator cuff repair, first on R, then on L. 2007, 2012 Hysterectomy - unsure of what was done 1 977 Hospitalization History Reason Date(Month[facility] 5 days for abdominal p ain. 1978
--- OUTSIDE RECORDS SUMMARY | 2025-03-25 13:09 | XMS_ITS | Clinical Summary ---
Author Organization [facility] Address [address] [place] [address] Phone Care Team Providers Care Health Record Technician Name Role Phone Chau Oliver MD [...] by mouth 1 (one) time each day. 2 Active meloxicam (MOBIC) 7.5 mg tablet Take 1 tablet (7.5 mg total) by mouth 1 (one) time each day. 1 Active neomycin-polymy luis-dexamethame thasone (POLYDEX) 3.5 mg/g-10,000 unit/g-0.1 % ointment APPLY THIN LAYER IN BOTH EYES EVERY NIGHT AT BEDTIME 5 Active loratadine (CLARITIN) 10 mg tablet Take 1 tablet (10 mg total) by mouth once daily as needed. 4 Active hydroCHLOROthia zide (HYDRODIURIL) 25 mg tablet Take 1 tablet (25 mg total) by mouth 1 (one) time each day. 5 Active doxycycline (ADOXA) 100 mg tablet TAKE 1 TABLET BY MOUTH TWICE DAILY FOR 2 WEEKS 5 Active famotidine (PEPCID) 40 mg tablet Take 1 tablet (40 mg total) by mouth daily. 4 Active fluticasone propionate (FLONASE) 50 mcg/actuation nasal spray SHAKE LIQUID AND USE 1 SPRAY IN BOTH NOSTRILS ONCE DAILY 4 Active acetaminophen (TYLENOL) 500 mg tablet Take 1 tablet (500 mg total) by mouth every 6 (six) hours if needed. for pain 5 Active calcium carbonate (OS-JOSÉ MIGUEL) 1,250 mg (500 mg elemental calcium) tablet Take 500 mg by mouth 2 times daily. 4 Active cholecalciferol (VITAMIN D-3) 50 mcg (2,000 unit) capsule Take 1 capsule (2,000 Units total) by mouth daily. 4 Active omeprazole (PriLOSEC) [address] capsule Take 1 capsule (20 mg total) by mouth. 4 03/20/20 25 Active Problems Problem Noted Date Diagnosed Date Pain in right leg 03/10/2025 Major depression, single episode 03/10/2025 Neck pain, chronic 03/10/2025 Assessment & Plan (03/10/2025 2:03 PM EDT): Ms. Trung Logan describes about 10 years of neck pain. She has pain in the left periscapular region as well as the shoulder and all of the proximal left arm. Shoulder surgery in [place] in the distant past and is not [...] shoulder surgery over 10 years ago in [place]. She is not sure if the pain [...] without sciatica 2 Overview (03/10/2025): Referred to [facility] Had MRI 2020 [facility] [address] by previous MD Mild disc herniation L3-4, L4-5 Broad based posterior disc bulge with small central protrusion and L5-S1 minimal broad based disc bulge Encounters Date Type Department Care Team Description 03/10/2025 1:00 PM EDT Consult Neurosurgery [facility] [address] [place] [address] Lance Brown PA Neck pain, [...] Date Site/Laterality Comments SHOULDER SURGERY Bilateral PROCEDURE: AK UNLISTED PROCEDURE SHOULDER HYSTERECTOMY N/A PROCEDURE: HISTORICAL [...] Info) Description 04/08/2025 9:00 AM EDT Evaluation [address] [phone] Kalpesh Conway, PT [address] [place] [address] Health Maintenance Due Date Last Done Comments [...] probability of hip fracture of 6.0%. Code 90712 -------- FINAL REPORT -------- Dictated By: Tony Baron Dictated Date: 09/28/2024 09:58 ET Assigned Physician: Tony Baron Reviewed and Electronically Signed By: Tony Baron Signed Date: 09/28/2024 10:00 ET Workstation ID: [id number] Transcribed By: Self Edit Transcribed Date: 09/28/2024 [...] density of the femurs bilaterally is 0.812 gm/nd7bjlgh is 81% of that of young normals [...] probability of hip fracture of 6.0%. Code 86834 -------- FINAL REPORT -------- Dictated By: Tony Baron Dictated Date: 09/28/2024 09:58 ET Assigned Physician: Tony Baron Reviewed and Electronically Signed By: Tony Baron Signed Date: 09/28/2024 10:00 ET Workstation ID: [id number] Transcribed By: Self Edit Transcribed Date: 09/28/2024 09:58 ET Miryam [place] MD IM DXA PROCEDURES Final Result from Last 3 Months or Most Recently Relevant to Health Maintenance Insurance [employer] MEDICARE Care Teams Health Record Technician Relationship Specialty Start Date End Date Chau Oliver MD [address] [place] [address] PCP - General Internal Medicine 03/29/22
--- NOTE | 2025-03-25 13:28 | A.OFFVIS_ITS ---
Vital Signs 03/25/25 13:30 Height 5 ft 2 in Weight 122 lb BMI 22.3 BP 172/74 H Blood Pressure Location Rt brachial Position Sitting Pulse 76 Pulse Source Pulse Oximeter Pulse Oximetry (%) 98 Oxygen Delivery Method Room Air Intake Visit Reasons: s/p erica Dx L3-L4-DR-L5 MBB Intake Note: Pain today 06/13 Database Report Writer Required: Yes Database Report Writer Language: [employer] Name: Petr Accompanied by: Self / Same As Patient Allergies iron Allergy (Unknown, Verified 03/25/25 13:31) Rash Penicillins Allergy (Unknown, Verified 03/25/25 13:31) Rash HPI Comments Details: The patient is an 80-year-old female presenting for follow-up after undergoing bilateral diagnostic L3, L4, L5 medial branch blocks for lumbar spondylosis, she also suffers from lumbar spinal stenosis related pain and chronic knee pain. She reported initial pain relief post-injection, lasting approximately two days, yet pain returns with certain movements. More pronounced leg pain indicates her lumbar spinal stenosis involvement and impacts her daily functioning. An anticipated neurosurgical consultation with Dr. Martinez has been delayed, prompting the need to verify scheduling status. Due to significant osteoporosis, steroidal injections are contraindicated, leading to a focus on alternative treatments like radiofrequency ablation for more prolonged relief. Detailed procedural discussions were held, and the patient is considering RFA as she finds a stimulator device more complex and less appealing. Past Procedures: 03/15/25: Bilateral Diagnostic L3-L4-DRL5 MBB-100% pain relief for 2 days in the back, ongoing right leg pain with certain movements PRIOR: The patient is an 80-year-old female presenting with follow-up concerns of back and right leg pain. The pain has been ongoing and worsening over the past few months, characterized as severe and radiating from the lumbar region down to the right leg. The patient notes significant discomfort, with a pain severity rating of 10/10. Her history of osteoporosis limits the treatment options, as she cannot receive steroid injections due to the risk of exacerbating her bone condition. Concurrently, arthritis is also contributing to her back pain. Her MRI in October did not display significant pathology, yet the pain intensifies. She is interested in Neurosurgery referral and requests this at [facility]. Consultation with our [facility] team about recent lumbar MRI findings concluded no surgical intervention needed. Additionally, the patient experiences significant right knee pain potentially contributing to her overall leg discomfort. While she has not had prior knee injections and is hesitant to pursue them, the option of diagnostic imaging for further assessment and potential gel injections without steroids was discussed. - Onset & Timing: Several months ago, progressively worsening - Quality & Character: Radiating pain from lower back to right leg, primarily affecting the front; originates L4-L5 - Primary Location: Lower back with radiation to right leg - Exacerbating Factors: Movements, bending, walking, prolonged standing or sitting, climbing stairs - Relieving Factors: Rest, activity modifications, heat, Tylenol - Functional Impact: Severe, rated as 10/10 pain; impacts daily activities - Affect: Severe pain causing significant distress - Analgesia: Currently using Tylenol; pain level rated at 10/10; no specific goal pain level provided - Adverse Effects: No reported side effects from Tylenol - Activities of Daily Living: Pain significantly affects mobility; difficulty performing daily tasks - Aberrant Drug Related Behaviors: None reported PRIOR: Patient presents today for follow-up to discuss recent lumbar spine MRI results. She continues to endorse significant low back pain which radiates into her both anterior thighs into lateral lower legs this is associated numbness and tingling and weakness in the left lower extremity. Patient reports pain 10/10. She states tramadol has been partially effective. 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 She requests therapeutic FAUSTO to alleviate her symptoms. Denies any fever or chills, abdominal or groin pain, bladder or bowel dysfunction or saddle anesthesia. PRIOR: Patient is a pleasant 79 years old [place]iboutian speaking female with history of chronic midline low back pain with sciatica and osteoporosis, presents today for initial evaluation of low back pain with right-sided radiculopathy. She presents in a moderate distress today and constantly changes her positioning from sitting, standing and leaning forward to alleviate her acute back pain. Denies any recent trauma, injury, or falls. 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 Back pain is axial and also radiates to right lower extremity anteriorly and at times radiates to her left leg laterally and posteriorly. She reports numbness and tingling with burning sensation in her right hernández and dorsal foot. Her mobility, functioning, sleep and ADLs are significantly limited due to pain. She is concerned for not able to complete her house chores at home. She experiences spinal-stenosis related pain and cannot pursue formal physical therapy. Denies any fever, chills, abdominal or groin pain, bladder or bowel dysfunction or saddle anesthesia. Reports right lower extremity weakness due to pain. She ambulates with walker. Location: Low back pain radiates into RLE anteriorly, at times on the left posterior Duration: Chronic pain, worsening over the past one year Characteristics of symptom or complaint: Shooting, stabbing, sharp, numbness, tingling, radiating, heavy, aching Aggravating or associated factors: Movements, sitting, walking, sleeping, cold weather, ADLs, housechores Relieving factors: Rest, changing positions, modifying activities, heat, Tylenol [facility] Medical History Age-related osteoporosis without current pathological fracture GERD without esophagitis Midline low back pain with sciatica Hypothyroidism Hypertension Review of Systems Const All systems reviewed & are unremarkable except as noted in HPI and below Physical Exam Vital Signs: Last Vital Signs Pulse 76 03/25/25 13:30 BP 172/74 H 03/25/25 13:30 Pulse Ox 98 03/25/25 13:30 Oxygen Delivery Method Room Air 03/25/25 13:30 BMI result Body Mass Index 22.3 General: Appears afebrile. Alert and oriented. Mood and affect appropriate. Follows and participates in conversation appropriately. Respiratory effort is unlabored. No cough. Able to transition from sit to stand unassisted. Ambulates with left normal heel strike and toe off and increased pain on the left. General: Yes no CVA tenderness Back/Spine/Pelvis Other: Limited lumbar ROM due to significant pain. Lumbar extension and flexion reproduces moderate pain. Mild midline tenderness in the lower lumbar spine, no midline tenderness in the cervical, thoracic or upper lumbar spine. Antalgic gait with limping. Demonstrates 5/5 left and 4/5 right due to pain strength of quadriceps bilaterally as well as flexion/dorsiflexion of bilateral feet against resistance. 2+ pedal pulses bilaterally. Straight leg rise with dorsiflexion is positive on the right. Diminished patellar and achilles reflexes bilaterally. Facet loading test positive bilaterally. Tricia sign positive bilaterally, limited Vicente's test reproduces lateral hip pain. Pelvic compression and Stinchfield tests are positive bilaterally. Mild groin pain with I/E hip rotations. Valsalva maneuver negative. Back: no CVA tenderness Cervical Spine: loss of normal cervical lordosis, cervical muscular tenderness and No Cervical spine tenderness Thoracic/Lumbar Spine: thoracic and lumbar spine normal to inspection, No Thoracic/lumbar spine scar(s), Lasegue's sign positive bilateral, pain with thoraco-lumbar ROM, paraspinal muscle tenderness on the right greater than left, No thoracic spinal tenderness and lumbar spinal tenderness (L3-S1) Pelvis: buttock tenderness on the right Sacroiliac joints: bilaterally tender to palpation Extrem General: Yes capillary refill normal, Yes no clubbing, cyanosis or edema and Yes no calf tenderness Results Reviewed Results Reviewed: MR SPINE LUMBAR without CONTRAST 10/17/24 INDICATION: Radiculopathy, lumbar region. Numbness right leg ongoing for 5 weeks. TECHNIQUE: Unenhanced multiplanar, multisequence MR imaging of the lumbar spine. COMPARISON: MR lumbar 08/08/2021, 04/15/2020. FINDINGS: Normal lumbar alignment is demonstrated. Vertebral heights are well maintained. Bone marrow signal is within normal limits, and no suspicious osseous lesion is identified. Conus medullaris is unremarkable. There are bilateral nerve root cysts demonstrated at T11-12 and T12-L1 on the right. Paraspinal soft tissues and visualized portions of the abdomen and pelvis are unremarkable. At L1-2 there is no significant disc herniation or protrusion. No central canal or neural foraminal stenosis is demonstrated. At L2-3 there is mild annular disc bulge. There is minimal facet arthrosis. There is no significant central canal or neural foraminal stenosis. At L3-4 there is no mild annular disc bulge. There is no significant facet arthrosis. There is no significant central canal or neural foraminal stenosis. At L4-5 there is broad-based disc bulge and mild ligament flavum hypertrophy. There is mild narrowing of the central canal. There is mild bilateral neural foraminal stenosis greater on the left. Findings appear stable. At L5-S1 there is no significant disc herniation or protrusion. No central canal or neural foraminal stenosis is demonstrated. 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 IMPRESSION: Degenerative changes predominately at L4-5 with narrowing of the neuroforamina greater on the left. Findings appear stable. No other significant central canal or neural foraminal stenosis. DEXA axial skeleton 01/01/25 IMPRESSION: Based on bone mineral density, and according to World Health Organization (WHO) criteria, the diagnosis is consistent with osteoporosis. Assessment & Plan Assessment & Plan (1) Lumbar back pain with radiculopathy affecting right lower extremity: Code(s): M54.16 - Radiculopathy, lumbar region Category: Medical (2) Lumbar spinal stenosis: Code(s): M48.061 - Spinal stenosis, lumbar region without neurogenic claudication Category: Medical (3) Bilateral knee pain: Code(s): M25.561 - Pain in right knee; M25.562 - Pain in left knee Category: Medical (4) Lumbosacral spondylosis: Code(s): M47.817 - Spondylosis without myelopathy or radiculopathy, lumbosacral region Category: Medical (5) Lumbar degenerative disc disease: Code(s): M51.369 - Other intervertebral disc degeneration, lumbar region without mention of lumbar back pain or lower extremity pain Category: Medical Plan Schedule Bilateral L3-L4 DR L5 Medial Branch RFA with local and fluoroscopy given positive response to diagnostic lumbar medial branch blocks with partial improvement in her daily activities and functioning. Expectations, risks and hoda efits were reviewed. Patient is aware she will be contacted to schedule this procedure. Tylenol will be continued with the consideration of adding celebrex for symptomatic relief. Side effects and precautions discussed with patient. Pending neurosurgical evaluation for a second opinion regarding lumbar spinal stenosis was sent to Dr. Martinez at [facility] per patient's and family request. All questions and concerns have been answered and patient agreed with the plan. Follow up after lumbar RFA and sooner as needed. Patient was informed and verbally consented to the use of an ambient scribe for clinic note documentation during this visit. Coding Level of Care Code Est Pt Level 3 (29514) Complex EM visit Add On G2211 Diagnoses Lumbar back pain with radiculopathy affecting right lower extremity M54.16 Lumbar spinal stenosis M48.061 Bilateral knee pain M25.561; M25.562 Lumbosacral spondylosis M47.817 Lumbar degenerative disc disease M51.369
[2025-03-25 13:30] VITALS: BP 172/74; PULSE 76; O2SAT 98; BMI 22.3
== END 2025-03-25 13:44 | disposition home or self-care (01) ==
LOC: HO.PMC 13:06
PROVIDERS: PCP Internal Medicine; Visit Provider Nurse Practitioner Family
DX: M54.16 Radiculopathy, lumbar region (principal); M48.061 Spinal stenosis, lumbar region without neurogenic claudication; M25.561 Pain in right knee; M25.562 Pain in left knee; M47.817 Spondylosis without myelopathy or radiculopathy, lumbosacral region; M51.369 Other intervertebral disc degeneration, lumbar region without mention of lumbar back pain or lower extremity pain
CPT/HCPCS: 99213; G2211

== ENCOUNTER → 2025-03-25 13:05 | Outpatient (BNVA) | payer MEDICARE, SELFPAY | PROVIDERS: PCP Internal Medicine; Visit Provider Nurse Practitioner Family | DX: M54.16 Radiculopathy, lumbar region (principal); M48.061 Spinal stenosis, lumbar region without neurogenic claudication; M25.561 Pain in right knee; M25.562 Pain in left knee; M47.817 Spondylosis without myelopathy or radiculopathy, lumbosacral region; M51.369 Other intervertebral disc degeneration, lumbar region without mention of lumbar back pain or lower extremity pain | CPT/HCPCS: 99212 ==

== ENCOUNTER 2025-05-06 06:15 | Outpatient (REF) | payer MEDICARE, SELFPAY ==
--- OUTSIDE RECORDS SUMMARY | 2025-05-04 11:00 | XMS_ITS | Encounter Summary ---
Author Organization [facility] Address [address] [place] [address] Care Team Providers Care Copy Machine Operator Name Role Phone Chau Oliver MD Primary Care Provider [phone] Reason for Visit * Consultation (Routine) - Authorized Specialty Diagnoses / Procedures Referred By Mann sanchez Referred To Contact Physical Therapy Diagnoses Neck pain, chronic Chronic left shoulder pain Lance Brown PA [address] [facility] [address] [place] [address] Phone: tel: fax: Referral ID Status Reason Start Date Expiration Date Visits Requested Visits Authorized [id number] Authorized Specialty Services Required 03/10/2025 03/10/2026 25 25 Encounter Details Date Type Department Care Team (Late st Contact Info) Description 05/04/2025 11:00 AM EDT Treatment [facility] [address] [phone] Joao Amaya PTA Chronic left shoulder pain (Primary Dx) Social History Tobacco Use Types Packs/Day Years Used Date Smoking Tobacco: Never Smokeless Tobacco: Never Comments Unknown Sex and Gender Information Value Date Recorded Sex Assigned at Not on file Legal Sex Female 4:49 AM EST Gender Identity Not on file Sexual Orientation Not on file documented as of this encounter Progress Notes * Joao Amaya PTA - 05/04/2025 11:00 AM EDT [facility] - Outpatient PHYSICAL THERAPY DAILY TREATMENT NOTE - OP Date: 05/04/2025 Visit Number: 3 Patient Name: Santa Cerdamudez : 1945 Age: 80 y.o. Gender: female Diagnosis: ICD-10-CM ICD-9-CM 1. Chronic left shoulder pain M25.512 719.41 G89.29 338.29 Date of Onset/Surgery: No data found Referring Provider: Lance Brown PA Insurance: Payor: [employer] MEDICARE / Plan: AARP MEDICARE COMPLETE / Product Type: *No Product type* / Patient Identified by: Joao Amaya PTA Language: Pt. speaks Slovenian as preferred language, however declines health service coordinator as treating SETUP OPERATOR speaks language. Medications: Current Outpatient Medications on File Prior to Visit Medication Sig Dispense Refill acetaminophen (TYLENOL) 500 mg tablet Take 1 tablet (500 mg total) by mouth every 6 (six) hours if needed. for pain amLODIPine (NORVASC) 5 mg tablet Take 1 tablet (5 mg total) by mouth 1 (one) time each day. (Patient not taking: Reported on 03/10/2025) atorvastatin (LIPITOR) 40 mg tablet Take 1 tablet (40 mg total) by mouth 1 (one) time each day. calcium carbonate (OS-JOSÉ MIGUEL) 1,250 mg (500 mg elemental calcium) tablet Take 500 mg by mouth 2 times daily. (Patient not taking: Reported on 03/10/2025) cholecalciferol (VITAMIN D-3) 50 mcg (2,000 unit) capsule Take 1 capsule (2,000 Units total) by mouth daily. (Patient not taking: Reported on 03/10/2025) cyclobenzaprine (FLEXERIL) 5 mg tablet Take 1 tablet (5 mg total) by mouth 3 (three) times a day ifneeded. doxycycline (ADOXA) 100 mg tablet TAKE 1 TABLET BY MOUTH TWICE DAILY FOR 2 WEEKS famotidine (PEPCID) 40 mg tablet Take 1 tablet (40 mg total) by mouth daily. fluticasone propionate (FLONASE) 50 mcg/actuation nasal spray SHAKE LIQUID AND USE 1 SPRAY IN BOTH NOSTRILS ONCE DAILY hydroCHLOROthiazide (HYDRODIURIL) 25 mg tablet Take 1 tablet (25 mg total) by mouth 1 (one) time each day. levothyroxine (SYNTHROID, LEVOTHROID) 75 mcg tablet Take 1 tablet (75 mcg total) by mouth 1 (one) time each day. loratadine (CLARITIN) 10 mg tablet Take 1 tablet (10 mg total) by mouth once daily as needed. meloxicam (MOBIC) 7.5 mg tablet Take 1 tablet (7.5 mg total) by mouth 1 (one) time each day. (Patient not taking: Reported on 03/10/2025) bstguymo-syqwdvbvd-loyqjvqasdsghxpesz (POLYDEX) 3.5 mg/g-10,000 unit/g-0.1 % ointment APPLY THIN LAYER IN BOTH EYES EVERY NIGHT AT BEDTIME No current facility-administered medications on file prior to visit. Allergies: is allergic to iron and penicillins. Precautions: Osteoporosis. Hx of back pain Fall risk: No SUBJECTIVE Subjective Report: Patient reports she had some relief for a few hours after last visit, then next day came back and having difficulty moving arm. Chart Reviewed: Yes Pain: 9/10 L shoulder Decreased to 6/10 with IFC TREATMENT INTERVENTION: Overhead pulleys 20 reps slow flex/ext Wall flexion slides with towel 10 reps 3 sec hold each Scap retraction against rolled towel leaning on wall 12 reps 3 sec hold each IFC low setting 6mA crisscross L shoulder and Traps with CP x 10 mins HEP Pendulums 5 circles and 5 side to side Scapula Retraction 5reps x [address] pec stretch UE in low position 5 sec hold ASSESSMENT/Response to Treatment Fair + tolereance, patient guarded with exercises. Reports decrease pain with IFC Patient very guarded L side Traps, neck and shoulder. Increased sensitivity and decreased tolerancewith mild palpation. Patient Education: Education provided: yes Education Provided To: Patient utilizing Printed Material mode(s) of education Response to Education: Verbal Understanding PLAN POC Development/Review: No Change in the Plan of Care; Participants: Patient Interventions Time Entry: Modalities: IFC low setting x 10 mins Therapeutic procedures: Therapeutic Exercise Time Entry: 20 Total Treatment Time: 30 mins Documentation completed by Joao Amaya PTA documented in this encounter Plan of Treatment Upcoming Encounters Date Type Department Care Team (Late st Contact Info) Description 05/11/2025 10:30 AM EDT Treatment [address] [address] Joao Amaya, SETUP OPERATOR 05/18/2025 9:30 AM EDT Treatment [facility] [address] [phone] Joao Amaya, SETUP OPERATOR 05/20/2025 9:00 AM EDT Treatment [facility] [address] [phone] Kalpesh Conway, PT [address] [place] [address] 05/24/2025 9:00 AM EDT Treatment [facility] [address] [phone] Joao Amaya, SETUP OPERATOR 05/26/2025 9:00 AM EDT Treatment [address] [phone] Joao Amaya, SETUP OPERATOR 05/31/2025 9:30 AM EDT Treatment [facility] [address] [phone] Kalpesh Conway, PT [address] [place] [address] documented as of this encounter Goals Goal Patient Goal Type Associated Problems Recent Progress Patient-Stated? Author feel better General Yes Kalpesh Cnoway, PT PT STG x 8 visits from [facility] 04/08/25 General No Kalpesh Conway, PT Note: [x] = goal MET [] = goal NOT MET [] Pt will report a 2/10 average pain level decrase, [] Pt will improve L C rotation to 60 deg to aid in looking over shoulder, [] P[] t will wake <1/night due to neck pain , [] Pt will improve shoulder ER strength to 4-/5 [x] = goal MET [] = goal NOT MET [] Pt will report an average shoulder pain level decrease of 2/10, [] Pt will increase left shoulder abd active ROM to 105 degrees, [] Pt will increase left shoulder flexion active ROM to 125 degrees PT LTG x 16 visits from [facility] 04/08/25 Kalpesh Ko, PT Note: [x] = goal MET [] = goal NOT MET [] Pt will be able to look over L shoulder without requiring trunk rotation, [] Pt will be able to look overhead for things such as placing/retrieving items on top shelf or changing light bulbs, [] Pt will be able to lift bags of groceries without limitations due to neck pain [] Pt will wake < 3/wk due to shoulder pain, [] Pt will be able to wash reach back of head to wash hair prn documented as of this encounter Visit Diagnoses Diagnosis Chronic left shoulder pain- Primary Pain in joint, shoulder region documented in this encounter Care Teams Copy Machine Operator Relationship Specialty Start Date End Date Chau Oliver MD [address] [place] [phone] PCP - General Internal Medicine 03/29/22 documented as of this encounter
--- NOTE | ~2025-05-06 | FL_ITS ---
EXAMINATION: FL GUIDANCE ONLY HISTORY: M47.817 - Spondylosis without myelopathy or radiculopathy, lumbosacral r... COMPARISON: None available. TECHNIQUE: Fluoroscopy time: 0.4 minutes. Cumulative Dose: 6.38 mGy. DAP: 0.0702 mGym2 Images: 2. FINDINGS: Fluoroscopic spot films of the lumbar spine demonstrate needles in the regions of the left L3-4, L4-5, and L5-S1 facet joints. FL/FL guidance in treatment room IMPRESSION: Fluoroscopy during procedure. Please see procedure report for additional information. Electronically signed by: Alcon Gunn MD 05/06/2025 03:22 PM EDT
--- OUTSIDE RECORDS SUMMARY | 2025-05-06 06:18 | XMS_ITS | Clinical Summary ---
Author Organization [facility] Address [address] [place] [address] Care Team Providers Care Janitorial Services Supervisor Name Role Phone Chau Oliver MD Primary Care Provider [phone] Source Comments PLEASE NOTE, if this patient [...] dizziness 30 Tablet 1 07/04/20 23 Active famotidine (PEPCID) 40 mg tabletIndications: Gastroesophageal [...] DAILY 90 Tablet 1 12/24/19 25 Active blood pressure monitorIndications :Primary hypertension Pt has HTN- Code I10 Check BP everday 1 Kit 01/07/20 25 Active hydroCHLOROthiazid e (HYDRODIURIL) 25 mg tabletIndications: Primary hypertension Take 1 Tablet by mouth once daily 90 Tablet 02/12/20 25 Active cyclobenzaprine (FLEXERIL) 10 mg tabletIndications: Neck muscle spasm Take 1 Tablet by mouth 3 (three) times daily as needed for muscle spasms 60 Tablet 01/15/20 24 025 Discontin ued(Thera py completed /Not needed) Active Problems Problem Noted Date Diagnosed Date Pain in right leg 03/10/2025 Neck pain, chronic 03/10/2025 Major depression, single episode 03/10/2025 Gastroesophageal reflux disease without esophagi tis 06/11/2024 Age-related osteoporosis wit hout current pathological fracture 05/22/2022 Overview (10/05/2024): Bone Densitometer- Mindi 09/28/2024 Osteoporosis Refuses to be on medication. Needs a [facility] because of Bone pain. Pt referred Calcium and Vit d Elevated LDL cholesterol level 03/13/2022 Primary hypertension 03/09/2022 Other specified hypothyroidism 03/09/2022 Midline low back pain without sciatica 2 Overview (03/09/2022): Referred to [facility] Had MRI 2020 [facility] [address] by previous MD Mild disc herniation L3-4, L4-5 Broad based posterior disc bulge with small central protrusion and L5-S1 minimal broad based disc bulge Encounters Date Type Department Care Team Description 04/28/2025 1:20 PM EDT Office Visit [address] [phone] Sarah Ware PA-C 02/15/2025 Results Follow-Up [address] [phone] Chau Oliver MD 02/11/2025 10:20 AM EDT Office Visit [address] [phone] Chau Oliver MD Martinez, Celestia from Last 3 Months Immunizations Immunization Administration Dates Next Due Flu, High Dose, 65y+, Fluzon e High Dose 08/06/2022 INFLUENZA, SEASONAL, INJECTABLE 07/26/20,08/11/2019,11/27/2017,01/09 PFIZER COVID VACCINE, PURPLE CAP, 12+ 01/14/2021 ,12/22/2020 PNEUMOCOCCAL CONJUGATE PCV 13 09/01/2021, 020 PNEUMOCOCCAL CONJUGATE PCV 2 0 (Prevnar) 05/29/2024 PNEUMOCOCCAL POLYSACCHARIDE PPV23 (Pneumovax 23) 04/03/2023,03/09/2022,08/04/2007 PPD 03/09/2022 TDAP 03/09/2022,03/25/2014 Zoster, Live Vaccine (Zostavax) 03/25/2014 Social History Tobacco Use Types Packs/Day Years [...] Sign Reading Time Taken Comments Blood Pressure 120/66 04/28/2025 1:25 PM EDT Pulse 91 04/28/2025 1:25 PM EDT Temperature 36.6 C (97.9 F) 04/28/2025 1:25 PM EDT Respiratory Rate 16 04/28/2025 1:25 PM EDT Oxygen Saturation 96% 04/28/2025 1:25 PM EDT Inhaled Oxygen Concentration - - Weight 56.9 kg (125 lb 8 oz) 04/28/2025 1:25 PM EDT Height 157.5 cm (5' 2 ) 04/28/2025 1:25 PM EDT Body Mass Index 22.95 04/28/2025 1:25 PM EDT Plan of Treatment Upcoming Encounters Date Type Department Care Team (Late st Contact Info) Description 05/17/2025 10:00 AM EDT Office Visit [address] [phone] Gisel Hernandez, JESUSITA [address] [place] [address] Health Maintenance Due Date Last Done Comments Advanced Care Planning 1945 Medicare Annual Wellness Visit [address] Colonography 02/24/1988 FIT/gFOBT 02/24/1988 Fecal DNA 02/24/1988 Flexible Sigmoidoscopy 02/24/1988 Imm-Influenza (#1) 2025 08/06/2022, 0 07/26/2020, 08/11/2019, Additional history exists Depression Monitoring 07/29/2025 04/28/2025 , 12/24/2024, 12/21/2022, Additional history exists Fcp-OTIEA-59 (3 - season) 2025 01/14/2021, 12/22/2020 Postponed from 07/05/2024 (Patient postponement) Imm-Zoster, Recombinant (2 of 3) 07/29/2025 03/25/2014 Postponed from 05/20/2014 (Patient postponement) Tobacco Screening 12/24/2025 12/24/2024 Breast Cancer Screening (Mammogram) 01/01/2026 01/01/2025, 01/30/2024, 01/30/2024, Additional history exists Falls Prevention 02/11/2026 02/11/2025, , 04/03/2023, Additional history exists Imm-RSV (adult) (1 - 1-dose 75+ series) 04/28/2026 Postponed from 2018 (Patient postponement) TSH Monitoring 04/28/2026 04/28/2025, 04/, 01/17/2024, Additional history exists Imm-DTaP/Tdap/Td (3 - Td or Tdap) 03/09/2032 03/09/2022, 03/25/2014 Colonoscopy 05/23/2033 05/23/2023 Colorectal Cancer Screening 05/23/2033 Imm-Pneumococcal 50+ Completed 05/29/2024, 04/03/2023, 03/09/2022, Additional history exists Alcohol and Drug Screen Completed 12/24/19, 01/15/2024, 12/21/2022, Additional history exists Bone Density Screening Completed , 09/28/2024, 09/28/2024, Additional history exists Procedures Procedure Name Priority Date/Time Associated Diagnosis Comments VITAMIN D, 1,25-DIHYDROXY Routine 04/28/2025 2:25 PM EDT Other fatigue Vitamin D deficiency VITAMIN B12 & FOLATE Routine 04/28/2025 2:25 PM EDT Other fatigue Vitamin D deficiency THYROID CASCADING REFLEX PANEL Routine 04/28/2025 2:25 PM EDT Other specified hypothyroidism LIPID PANEL Routine 04/28/2025 2:25 PM EDT Primary hypertension Elevated LDL cholesterol level COMPREHENSIVE METABOLIC PANEL Routine 04/28/2025 2:25 PM EDT Primary hypertension Elevated LDL cholesterol level BLOOD COUNT COMPLETE AUTO&AUTO DIFRNTL WBC Routine 04/28/2025 2:25 PM EDT Primary hypertension Elevated LDL cholesterol level REFERRAL SCANNED DOCUMENT 03/18/2025 3:00 AM EDT IMAGING SCANNED DOCUMENT 03/01/2025 [...] Recently Relevant to Health Maintenance Results * VITAMIN D, 1,25-DIHYDROXY Routine (04/28/2025 2:25 PM EDT) VITAMIN D, 1, 25 (OH)2, TOTAL 48 18 - 72 pg/mL [facility] [employer] [place] VITAMIN D3, 1, 25 (OH)2 48 pg/mL [facility] [place] VITAMIN D2, 1, 25 (OH)2 <8 pg/mL [facility] [employer] [place] Comment: Vitamin D3, 1,25(OH)2 indicates both endogenous production and supplementation. Vitamin D2, 1,25(OH)2 is an indicator of exogenous sources, such as diet or supplementation. Interpretation and therapy are based on measurement of Vitamin D,1,25(OH)2, Total. This test was developed and its analytical performance characteristics have been determined by [facility] [place]. It has not been cleared or approved by the FDA. This assay has been validated pursuant to the CLIA regulations and is used for clinical purposes. Blood Blood / Unknown 04/28/2025 2 :25 PM EDT 04/28/2025 2:26 PM EDT AngioScoreumair Ware PA-C LAB - BLOOD DRAW Final Resul t [facility] [address] , [facility] * THYROID CASCADING REFLEX PANEL Routine (04/28/2025 2:25 PM EDT) TSH 0.74 0.40 - 4.50 mIU/L [facility] Blood Blood / Unknown 04/28/2025 2 :25 PM EDT 04/28/2025 2:26 PM EDT CourtneyAzubuumair Ware PA-C LAB - BLOOD DRAW Edited Resu lt - Final [facility] [address] [address], [facility] [address] [address] * VITAMIN B12 & FOLATE Routine (04/28/2025 2:25 PM EDT) VITAMIN B12 496 200 - 1,100 pg/mL [facility] FOLATE, SERUM 10.2 5.5 ng/mL [facility] Comment: Reference Range Low: <3.4 Borderline: 3.4-5.4 Normal: >5.4 Blood Blood / Unknown 04/28/2025 2 :25 PM EDT 04/28/2025 2:26 PM EDT [facility] Jeanie [place] LAB - BLOOD DRAW Edited Resu lt - Final [facility] [address] [address], [facility] [address] [place] [address] * BLOOD COUNT COMPLETE AUTO&AUTO DIFRNTL WBC Routine (04/28/2025 2:25 PM EDT) WHITE BLOOD CELL COUNT 6.7 3.8 - 10.8 Thousand/ uL [facility] RED BLOOD CELL COUNT 4.52 3.80 - 5.10 Million/u L [facility] HEMOGLOBIN 13.9 11.7 - 15.5 g/dL [facility] HEMATOCRIT 43.0 35.0 - 45.0 % [facility] MCV 95.1 80.0 - 100.0 fL [facility] MCH 30.8 27.0 - 33.0 pg [facility] MCHC 32.3 32.0 - 36.0 g/dL [facility] Comment: For adults, a slight decrease in the calculated MCHC value (in the range of 30 to 32 g/dL) is most likely not clinically significant; however, it should be interpreted with caution in correlation with other red cell parameters and the patient's clinical condition. RDW 13.4 11.0 - 15.0 % [facility] PLATELET COUNT 163 140 - 400 Thousand/ uL [facility] MPV 10.2 7.5 - 12.5 fL [facility] ABSOLUTE NEUTROPHILS 4,241 1,500 - 7,800 cells/uL [facility] ABSOLUTE LYMPHOCYTES 1,782 850 - 3,900 cells/uL [facility] ABSOLUTE MONOCYTES 590 200 - 950 cells/uL [facility] ABSOLUTE EOSINOPHILS 40 15 - 500 cells/uL [facility] ABSOLUTE BASOPHILS 47 0 - 200 cells/uL [facility] NEUTROPHILS PCT 63.3 % [facility] [place] LYMPHOCYTES 26.6 % [facility] MONOCYTES 8.8 % [facility] [employer] EOSINOPHILS 0.6 % [facility] BASOPHILS 0.7 % [facility] [employer] Blood Blood / Unknown 04/28/2025 2 :25 PM EDT 04/28/2025 2:26 PM EDT Sarah Ware PA-C LAB - BLOOD DRAW Edited Resu lt - Final Performing Organization Address City/[facility]/ZIP Co de Phone Number [facility] [address] [address], [facility] [address] [address] * (ABNORMAL) LIPID PANEL Routine (04/28/2025 2:25 PM EDT) [facility] Signature CHOLESTEROL, TOTAL 167 <200 mg/dL [facility] HDL CHOLESTEROL 48(L) > OR = 50 mg/dL [facility] TRIGLYCERIDES 208(H) <150 mg/dL [facility] Comment: If a non-fasting specimen was collected, consider repeat triglyceride testing on a fasting specimen if clinically indicated. Acosta et al. J. of Clin. Lipidol. 2015;9:129-169. LDL-CHOLESTEROL 89 99 mg/dL (calc) [facility] Comment: Reference range: <100 Desirable range <100 mg/dL for primary prevention; <70 mg/dL for patients with CHD or diabetic patients with > or = 2 CHD risk factors. LDL-C is now calculated using the Trent-Dominguez calculation, which is a validated novel method providing better accuracy than the Friedewald equation in the estimation of LDL-C. Trent SS et al. DOMINGO. 2013;310(19): 8039-0448 (http://education.Bridg/faq/OPH231) CHOL/HDLC RATIO 3.5 <5.0 (calc) [facility] NON-HDL CHOLESTEROL 119 <130 mg/dL (calc) [facility] Comment: For patients with diabetes plus 1 major ASCVD risk factor, treating to a non-HDL-C goal of <100 mg/dL (LDL-C of <70 mg/dL) is considered a therapeutic option. Blood Blood / Unknown 04/28/2025 2 :25 PM EDT 04/28/2025 2:26 PM EDT Sarah Ware PA-C LAB - BLOOD DRAW Final Resul t Performing Organization Address [facility]/ZIP Co de Phone Number [facility] [address] [address], [facility] [address] [place] [address] * COMPREHENSIVE METABOLIC PANEL Routine (04/28/2025 2:25 PM EDT) GLUCOSE 85 65 - 99 mg/dL [facility] Comment: Fasting reference interval UREA NITROGEN (BUN) 17 7 - 25 mg/dL [facility] CREATININE (blood) 0.88 0.60 - 0.95 mg/dL [facility] EGFR 66 > OR = 60 mL/min/1. 73m2 [facility] BUN/CREATININE RATIO SEE NOTE: [facility] Comment: Not Reported: BUN and Creatinine are within reference range. SODIUM 141 135 - 146 mmol/L [facility] POTASSIUM 4.8 3.5 - 5.3 mmol/L [facility] CHLORIDE 105 98 - 110 mmol/L [facility] CARBON DIOXIDE 29 20 - 32 mmol/L [facility] CALCIUM 9.1 8.6 - 10.4 mg/dL [facility] PROTEIN, TOTAL 6.3 6.1 - 8.1 g/dL [facility] ALBUMIN 4.2 3.6 - 5.1 g/dL [facility] GLOBULIN 2.1 1.9 - 3.7 g/dL (calc) [facility] ALBUMIN/GLOBULI N RATIO 2.0 1.0 - 2.5 (calc) [facility] BILIRUBIN, TOTAL 0.3 0.2 - 1.2 mg/dL [facility] ALKALINE PHOSPHATASE 62 37 - 153 U/L [facility] AST 17 10 - 35 U/L [facility] ALT 18 6 - 29 U/L [facility] Blood Blood / Unknown 04/28/2025 2 :25 PM EDT 04/28/2025 2:26 PM EDT Sarah Ware PA-C LAB - BLOOD DRAW Edited Resu lt - Final [facility] [address] [address], [facility] [address] [place] [address] * REFERRAL SCANNED DOCUMENT (03/18/2025 3:00 AM EDT) 03/18/2025 3:00 AM EDT Jurgen Trevinoed SCAN REFERRAL Final Result * IMAGING SCANNED DOCUMENT (03/01/2025 3:00 AM EDT) Only the most recent of2 resultswithin the time period is included. 03/01/2025 3:00 AM EDT us Chau Oliver MD SCAN IMAGING Final Result * TSH W/RFLX FREE T4 (02/11/2025 10:27 AM EDT) TSH W/REFLEX TO FT4 0.71 0.40 - 4.50 mIU/L [facility] Blood Blood / Unknown 02/11/2025 1 0:27 AM EDT 02/11/2025 10:28 AM EDT us Chau Oliver MD LAB - BLOOD DRAW Final Result [facility] [address] [address], [facility] [address] [address] * HISTORIC MAMMOGRAM (01/01/2025 3:00 AM EST) [...] Most Recently Relevant to Health Maintenance Insurance [place] MEDICA[place] DENTAL GENERIC - DENTAL [facility] MEDICARE COMPLETE Care Teams Janitorial Services Supervisor Relationship Specialty Start Date End Date Chau Oliver MD [address] [place] [address] PCP - General Internal Medicine 12/21/21
--- OUTSIDE RECORDS SUMMARY | 2025-05-06 06:18 | XMS_ITS | Patient Health Record ---
Author Organization [facility] Address [address] [place], [place] [id number] Care Team Providers Care Automatic Vulcanizing Operator Name Role Phone Tati Patrick Primary Care Provider Allergies Allergen (clinical drug ingredient) Drug/Non Drug Allergy documented on EMR Reaction Allergy Type Onset Date Status naproxen Aleve dizziness, itchy, weak Drug Allergy Active aspirin / caffeine / orphenadrine Norgesic (uncoded) stomach upset,itchy Allergy Active iron (uncoded) rash Allergy Activ e penicillin (uncoded) rash Allergy Active Reason For [...] 13 IM Intramuscular 10/04/2020 Administered NDC 00 [id number] Social History Tobacco Use: Social History Observation Description Date Details (start date - stop date) Never Smoker NA - NA Tobacco Use Assessment MU Question Answer Notes What is your current smoking status? nonsmoker Problems Problem Type SNOMED Code ICD Code Onset Dates Problem Status W/U Status Risk Notes Problem Helicobacter pylori (92040473) Helicobacter pylori [H. pylori] as the cause of diseases classified elsewhere (B96.81) Active confirmed Treated 11/2019. Problem Hypothyroidism (43599036) Hypothyroidism , unspecified (E03.9) Active confirmed Problem Major depression, single episode (65743428) Major depressive disorder, single episode, unspecified (F32.9) Active confirmed Problem Visual difficulty (601598888) Unspecified visual loss (H54.7) Active confirmed Problem Essential hypertensi on (92355722) Essential (primary) hypertension (I10) Active confirmed Problem Gastro-esophageal reflux disease without esophagitis (283582436) Gastro-esophag eal reflux disease without esophagitis (K21.9) Active confirmed Improved after treatment for H. pylori. Symptoms resolved. Problem Constipation (49968330) Constipation, unspecified (K59.00) Active confirmed Problem Shoulder joint pain (404914964) Pain in right shoulder (M25.511) Active confirmed Problem Shoulder joint pain (565716045) Pain in left shoulder (M25.512) Active confirmed Problem Backache (515646756) Dorsalgia, unspecified (M54.9) Active confirmed Problem Pain in right leg (576378033) Pain in right leg (M79.604) Active confirmed Problem Acquired renal cysti c disease (659481519) Cyst of kidney, acquired (N28.1) Active confirmed Problem Chest pain (37457850) Chest pain , unspecified (R07.9) Active confirmed Problem Flushing (87989204) Flushing (R23.2) Active confirmed Problem Edema (97588508) Edema, unspecified (R60.9) Active confirmed Problem Abnormal weight loss (869756512) Abnormal weight loss (R63.4) Active confirmed Problem Pure hypercholesterolemia (251052892) Pure hypercholester olemia, unspecified (E78.00) Active confirmed [...] SURFACE AB IMMUNITY, QN 03/04 TSH CASCADE 01/07/2020 TSH CASCADE 06/30/2020 CR Spine Lumbar 2 or 3 Views 01/11/2021 CR Spine Thoracic 2 Views 01/11/2021 Bernie Screening Digital 05/11/2020 Insurance Providers Payer Name Payer Address Payer Phone Subscriber Number Group Number Insured Name Patient Relationship to Insured Coverage Start Date Coverage End Date [employer] A[employer] Medicare Complete [address] [address] [place] [address] [id number] Santa Maguire Self - patient is the insured 1 Medical (General) History Medical History History ICD Code HTN hyperlipidemia hypothyroid Surgical History Surgery Date(Month/Year) Rotator cuff repair, first on R, then on L. 2007, 2012 Hysterectomy - unsure of what was done 1 977 Hospitalization History Reason Date(Month/Year) [facility] - Hysterectomy 1977 [facility] 5 days for abdominal p ain. 1978
== END 2025-05-06 06:16 | disposition home or self-care (01) ==
LOC: CF 06:15
PROVIDERS: Visit Provider Internal Medicine
DX: M47.817 Spondylosis without myelopathy or radiculopathy, lumbosacral region (principal)
CPT/HCPCS: 64635; 64636; J2003

== ENCOUNTER 2025-05-06 10:32 | Outpatient (AMB) | payer MEDICARE, SELFPAY ==
--- NOTE | 2025-05-06 10:33 | MHC.OFFVIS ---
Vital Signs 05/06/25 10:39 05/06/25 10:40 Height 5 ft 2 in 5 ft 2 in Weight 122 lb 122 lb BMI 22.3 22.3 BP 131/67 138/74 Blood Pressure Location Rt brachial Rt brachial Position Sitting Sitting Respiration 16 16 Pulse 74 62 Pulse Source Pulse Oximeter Pulse Oximeter Pulse Oximetry (%) 97 97 Oxygen Delivery Method Room Air Room Air Intake Visit Reasons: Left L3-L4-L5 RFA/ valium & oxy Allergies iron Allergy (Unknown, Verified 03/25/25 13:31) Rash Penicillins Allergy (Unknown, Verified 03/25/25 13:31) Rash HPI HPI Left L3-L4-L5 RFA/ valium & oxy: Details: Patient presents for scheduled procedure. Denies any recent cough, cold, infection, fever or other significant changes in medical history since last office visit. [facility] Medical History Age-related osteoporosis without current pathological fracture GERD without esophagitis Midline low back pain with sciatica Hypothyroidism Hypertension Physical Exam Vital Signs: Last Vital Signs Pulse 62 05/06/25 10:40 Resp 16 05/06/25 10:40 BP 138/74 05/06/25 10:40 Pulse Ox 97 05/06/25 10:40 Oxygen Delivery Method Room Air 05/06/25 10:40 BMI result Body Mass Index 22.3 Office Procedures Details: Radiofrequency lesioning medial branch nerves, Left L3, L4 medial branches and L5 dorsal ramus (L4/5 and L5/S1) (2 levels, 3 nerves) After obtaining written consent, pre-procedure blood pressure and heart rate were stable and recorded in the nursing record. The patient was placed in the prone position. The lumbar area was prepped with chloraprep and draped in sterile fashion. The skin over the target for each medial branch nerve was anesthetized with 0.5% lidocaine. An 18 gauge radiofrequency cannula was advanced to each target site under fluoroscopic guidance. No paresthesias were elicited with needle placement and aspiration was negative for heme and CSF. Impedences were verified under 600 ohms. Sensory testing (50 Hz) and then motor testing (2 Hz) confirmed needle placement at each site within the appropriate voltage thresholds. Each site was injected with 0.5 ml 2% preservative-free lidocaine. Radiofrequency lesioning was performed for 90 seconds at 80 deg Celcius. Each site was then injected with 0.5ml 2% lidocaine. The needle was removed, skin cleansed and a sterile bandage was applied. The patient tolerated the procedure well and no complications were encountered. Following the procedure the patient's vital signs were stable. The patient was discharged home in good condition with post-procedural instructions. Time Out: Immediately prior to the procedure, the following was verbally confirmed that there is a signed consent form and that the correct patient, planned procedure, site and side are consistent with documentation and that necessary equipment and/or blood products are available prior to the start of the case. Complications: none EBL: <5 cc 75096 - RFA Lumbar Medial Branches 68792 - Lumbar Medial Branches ADDNL Procedure code (CPT) selection complete Office Meds lidocaine (PF) 10 mg/mL (1 %) injection solution Performing Provider: Kira Clemens APRN, CNP Performing Location: [facility] Documented (not given) by: Jorge Rene MD on 05/06/25 13:29 Dose Route Admin Location Dispensed Lot Number Expiration Date [facility] Systems Tester 5 mL subcut mL Total Dispensed Waste n/a n/a ropivacaine (PF) 5 mg/mL (0.5 %) injection solution Performing Provider: Kira Clemens APRN, CNP Performing Location: [facility]-Proc Documented (not given) by: Jorge Rene MD on 05/06/25 13:29 Dose Route Admin Location Dispensed Lot Number Expiration Date [facility] Systems Tester 5 mg subcut mL Total Dispensed Waste n/a n/a triamcinolone acetonide 40 mg/mL suspension for injection Performing Provider: Kira Clemens APRN, CNP Performing Location: [facility] Documented (not given) by: Jorge Rene MD on 05/06/25 13:29 Dose Route Admin Location Dispensed Lot Number Expiration Date [facility] Systems Tester 40 mg Infiltration mL Total Dispensed Waste n/a n/a Assessment & Plan Assessment & Plan (1) Lumbosacral spondylosis: Code(s): M47.817 - Spondylosis without myelopathy or radiculopathy, lumbosacral region Category: Medical Plan Patient is status post left L3-L4 medial branches and L5 dorsal ramus radiofrequency ablation. Patient tolerated procedure well and was discharged home in stable condition with discharge instructions. All questions were answered. We will follow-up via telephone or in clinic to assess response to therapy. A follow-up appointment was made during today's visit. Orders: Orders AMB RFA Radiofrequency Ablation Pain Management Today Kira Clemens APRN, MILY M47.817 - Spondylosis without myelopathy or radiculopathy, lumbosacral region FL guidance in treatment room Today Kira Clemens APRN, CNP M47.817 - Spondylosis without myelopathy or radiculopathy, lumbosacral region Medications: New oxycodone take 30 minutes prior to arrival for procedure 5 mg PO BID PRN 1 tab 0RF pain Kira Clemens APRN, MILY lidocaine (PF) 5 mL subcut ONCE 5 mL 0RF Jorge MNguyễn Rene MD M47.817 - Spondylosis without myelopathy or radiculopathy, lumbosacral region ropivacaine (PF) 5 mg subcut ONCE 1 mL 0RF Jorge Dov Rene MD M47.817 - Spondylosis without myelopathy or radiculopathy, lumbosacral region triamcinolone acetonide 40 mg Infiltration ONCE 1 mL 0RF Jorge Dov Rene MD M47.817 - Spondylosis without myelopathy or radiculopathy, lumbosacral region diazepam (Valium) take 30 minutes prior to arrival for procedure 2 mg PO BEDTIME PRN 1 tab 0RF sleep Kira Clemens APRN, MILY Coding Level of Care Code Procedure Only Diagnoses Lumbosacral spondylosis M47.817 CPT Codes Radiofrequency Ablation - Rad-Ablation 3: 68064 - RFA Lumbar Medial Branches ([id number]) Radiofrequency Ablation - Rad-Ablation 4: 54144 - Lumbar Medial Branches ADDNL ([id number])
[2025-05-06 10:39] VITALS: BP 131/67; PULSE 74; RESP 16; O2SAT 97; BMI 22.3
[2025-05-06 10:40] VITALS: BP 138/74; PULSE 62; RESP 16; O2SAT 97; BMI 22.3
== END 2025-05-06 12:00 | disposition home or self-care (01) ==
LOC: HO.PMCPRC 10:32
PROVIDERS: PCP Internal Medicine; Visit Provider Internal Medicine
DX: M47.817 Spondylosis without myelopathy or radiculopathy, lumbosacral region (principal)
CPT/HCPCS: 64635; 64636

== ENCOUNTER 2025-05-13 06:33 | Outpatient (REF) | payer MEDICARE, SELFPAY ==
--- NOTE | ~2025-05-13 | FL_ITS ---
EXAMINATION: FL GUIDANCE ONLY HISTORY: M47.817 - Spondylosis without myelopathy or radiculopathy, lumbosacral COMPARISON: None available. TECHNIQUE: Fluoroscopy time: 0.4 minutes. Cumulative Dose: 6.13 mGy. DAP: 0.0570 mGym2 Images: 2. FINDINGS: Fluoroscopic spot films of the lumbar spine demonstrate needles in the regions of the left L3-4, L4-5, and L5-S1 facet joints. FL/FL guidance in treatment room IMPRESSION: Fluoroscopy during procedure. Please see procedure report for additional information. Electronically signed by: Alcon Gunn MD 05/13/2025 02:53 PM EDT
--- OUTSIDE RECORDS SUMMARY | 2025-05-13 06:35 | XMS_ITS | Patient Health Record ---
Author Organization [facility] Address [address], [place] [id number] Care Team Providers Care Rest Room Maid Name Role Phone Tati Patrick Primary Care Provider [phone] Allergies Allergen (clinical drug ingredient) Drug/Non Drug [...] 13 IM Intramuscular 10/04/2020 Administered NDC 00 [id number] Social History Tobacco Use: Social History Observation Description Date Details (start date - stop date) Never Smoker NA - NA Tobacco Use Assessment MU Question Answer Notes What is your current smoking status? nonsmoker Problems Problem Type SNOMED Code ICD Code Onset Dates Problem Status W/U Status Risk Notes Problem Helicobacter pylori (75371451) Helicobacter pylori [H. pylori] as the cause of diseases classified elsewhere (B96.81) Active confirmed Treated 11/2019. Problem Hypothyroidism (38616474) Hypothyroidism , unspecified (E03.9) Active confirmed Problem Major depression, single episode (23446730) Major depressive disorder, single episode, unspecified (F32.9) Active confirmed Problem Visual difficulty (662603254) Unspecified visual loss (H54.7) Active confirmed Problem Essential hypertensi on (07673731) Essential (primary) hypertension (I10) Active confirmed Problem Gastro-esophageal reflux disease without esophagitis (384553190) Gastro-esophag eal reflux disease without esophagitis (K21.9) Active confirmed Improved after treatment for H. pylori. Symptoms resolved. Problem Constipation (82962802) Constipation, unspecified (K59.00) Active confirmed Problem Shoulder joint pain (445095476) Pain in right shoulder (M25.511) Active confirmed Problem Shoulder joint pain (822608189) Pain in left shoulder (M25.512) Active confirmed Problem Backache (273219631) Dorsalgia, unspecified (M54.9) Active confirmed Problem Pain in right leg (106907628) Pain in right leg (M79.604) Active confirmed Problem Acquired renal cysti c disease (705287818) Cyst of kidney, acquired (N28.1) Active confirmed Problem Chest pain (79912024) Chest pain , unspecified (R07.9) Active confirmed Problem Flushing (54680033) Flushing (R23.2) Active confirmed Problem Edema (25554740) Edema, unspecified (R60.9) Active confirmed Problem Abnormal weight loss (416282828) Abnormal weight loss (R63.4) Active confirmed Problem Pure hypercholesterolemia (746729632) Pure hypercholester olemia, unspecified (E78.00) Active confirmed [...] [employer] Medicare Complete [address] [address] [place] [address] [id number] Santa Maguire Self - patient is the insured 1 Medical (General) History Medical History History ICD Code HTN hyperlipidemia hypothyroid Surgical History Surgery Date(Month/Year) Rotator cuff repair, first on R, then on L. 2007, 2012 Hysterectomy - unsure of what was done 1 977 Hospitalization History Reason Date(Month/Year) [facility] - Hysterectomy 1977 [facility] 5 days for abdominal p ain. 1978
--- OUTSIDE RECORDS SUMMARY | 2025-05-13 06:35 | XMS_ITS | Clinical Summary ---
Author Organization [facility] Address [address] [place] [address] Care Team Providers Care Repairer Screen Crusher Name Role Phone Chau Oliver MD Primary Care Provider [phone] Source Comments PLEASE NOTE, if this patient [...] (03/09/2022): Referred to [facility] Had MRI 2020 [facility] [address] by previous MD Mild disc herniation L3-4, L4-5 Broad based posterior disc bulge with small central protrusion and L5-S1 minimal broad based disc bulge Encounters Date Type Department Care Team Description 04/28/2025 1:20 PM EDT Office Visit [address] [phone] Sarah Ware PA-C 02/15/2025 Results Follow-Up [address] [phone] Chau Oliver MD 02/11/2025 10:20 AM EDT Office Visit [address] [phone] Chau Oliver MD Martinez, Celestia from Last 3 Months Immunizations Immunization Administration Dates Next Due Flu, High Dose, 65y+, Fluzon e High Dose 08/06/2022 INFLUENZA, SEASONAL, INJECTABLE 07/26/20 20,08/11/2019,11/27/2017,01/09 PFIZER COVID VACCINE, PURPLE CAP, 12+ 01/14/2021 ,12/22/2020 PNEUMOCOCCAL CONJUGATE PCV 13 09/01/2021, 020 PNEUMOCOCCAL CONJUGATE PCV 2 0 (Prevnar 20) 05/29/2024 PNEUMOCOCCAL POLYSACCHARIDE PPV23 (Pneumovax 23) 04/03/2023,03/09/2022,08/04/2007 [...] Description 05/17/2025 10:00 AM EDT Office Visit [address] [phone] Gisel Hernandez, JESUSITA [address] [place] [address] Health Maintenance Due Date Last Done Comments Advanced Care Planning 1945 Medicare Annual Wellness Visit [address] CT Colonography 02/24/1988 FIT/gFOBT 02/24/1988 Fecal DNA 02/24/1988 Flexible Sigmoidoscopy 02/24/1988 Imm-Influenza (#1) 2025 08/06/2022, 0 07/26/2020, 08/11/2019, Additional history exists Depression Monitoring 07/29/2025 04/28/2025 , 12/24/2024, 12/21/2022, Additional history exists Qst-SGCCK-30 (3 - season) 2025 01/14/2021, 12/22/2020 Postponed [...] EDT Primary hypertension Elevated LDL cholesterol level HEALTH HISTORY SCANNED DOCUMENT 04/07/2025 3:00 AM EDT REFERRAL SCANNED DOCUMENT 03/18/2025 3:00 AM EDT [...] 48 18 - 72 pg/mL [facility] [place] VITAMIN D3, 1, 25 (OH)2 48 pg/mL [facility] [place] VITAMIN D2, 1, 25 (OH)2 <8 pg/mL [facility] [place] Comment: Vitamin D3, 1,25(OH)2 indicates both endogenous production and supplementation. Vitamin D2, 1,25(OH)2 is an indicator of exogenous sources, such as diet or supplementation. Interpretation and therapy are based on measurement of Vitamin D,1,25(OH)2, Total. This test was developed and its analytical performance characteristics have been determined by [employer]. It has not been cleared or approved by the FDA. This assay has been validated pursuant to the CLIA regulations and is used for clinical purposes. Blood Blood / Unknown 04/28/2025 2 :25 PM EDT 04/28/2025 2:26 PM EDT [employer] [facility] [employer] Ware PA-C LAB - BLOOD DRAW Final Resul t [facility] [address] , [facility] [address] * THYROID CASCADING REFLEX PANEL Routine (04/28/2025 2:25 PM EDT) TSH 0.74 0.40 - 4.50 mIU/L [facility] Blood Blood / Unknown 04/28/2025 2 :25 PM EDT 04/28/2025 2:26 PM EDT [employer] [facility] Ware PA-C LAB - BLOOD DRAW Edited Resu lt - Final [facility] [address] [address], [facility] [address] [address] * VITAMIN B12 & FOLATE Routine (04/28/2025 2:25 PM EDT) VITAMIN B12 496 200 - 1,100 pg/mL [facility] FOLATE, SERUM 10.2 5.5 ng/mL [facility] Comment: Reference Range Low: <3.4 Borderline: 3.4-5.4 Normal: >5.4 Blood Blood / Unknown 04/28/2025 2 :25 PM EDT 04/28/2025 2:26 PM EDT us Sarah Ware PA-C LAB - BLOOD DRAW Edited Resu lt - Final [facility] [address] [address], [facility] [address] [place] [address] * BLOOD COUNT COMPLETE AUTO&AUTO DIFRNTL WBC Routine (04/28/2025 2:25 PM EDT) Pathologist [facility] WHITE BLOOD CELL COUNT 6.7 3.8 - 10.8 Thousand/ uL [facility] RED BLOOD CELL COUNT 4.52 3.80 - 5.10 Million/u L [facility] HEMOGLOBIN 13.9 11.7 - 15.5 g/dL [facility] HEMATOCRIT 43.0 35.0 - 45.0 % [facility] MCV 95.1 80.0 - 100.0 fL [facility] MCH 30.8 27.0 - 33.0 pg [facility] MCHC 32.3 32.0 - 36.0 g/dL [facility] Comment: For adults, a slight decrease in the calculated MCHC value (in the range of 30 to 32 g/dL) is most likely not clinically significant; however, it should be interpreted with caution in correlation with other red cell parameters and the patient's clinical condition. RDW 13.4 11.0 - 15.0 % [facility] PLATELET COUNT 163 140 - 400 Thousand/ uL [facility] MPV 10.2 7.5 - 12.5 fL [facility] ABSOLUTE NEUTROPHILS 4,241 1,500 - 7,800 cells/uL [facility] ABSOLUTE LYMPHOCYTES 1,782 850 - 3,900 cells/uL [facility] ABSOLUTE MONOCYTES 590 200 - 950 cells/uL [facility] ABSOLUTE EOSINOPHILS 40 15 - 500 cells/uL [facility] ABSOLUTE BASOPHILS 47 0 - 200 cells/uL [facility] NEUTROPHILS PCT 63.3 % [facility] LYMPHOCYTES 26.6 % [facility] [employer] [facility] MONOCYTES 8.8 % [facility] EOSINOPHILS 0.6 % [facility] [employer] [facility] [employer] BASOPHILS 0.7 % [facility] Blood Blood / Unknown 04/28/2025 2 :25 PM EDT 04/28/2025 2:26 PM EDT Sarah Ware PA-C LAB - BLOOD DRAW Edited Resu lt - Final [employer] [facility] [address] [address], [facility] [address] [place] [address] * (ABNORMAL) LIPID PANEL Routine (04/28/2025 2:25 PM EDT) [facility] Signature CHOLESTEROL, TOTAL 167 <200 mg/dL [facility] HDL CHOLESTEROL 48(L) > OR = 50 mg/dL [facility] TRIGLYCERIDES 208(H) <150 mg/dL [facility] Comment: If a non-fasting specimen was collected, consider repeat triglyceride testing on a fasting specimen if clinically indicated. Acosta et al. J. of Clin. Lipidol. 2015;9:129-169. LDL-CHOLESTEROL 89 99 mg/dL (calc) [facility] Comment: Reference range: <100 Desirable range <100 mg/dL for primary prevention; <70 mg/dL for patients with CHD or diabetic patients with > or = 2 CHD risk factors. LDL-C is now calculated using the Trent-Mix calculation, which is a validated novel method providing better accuracy than the Friedewald equation in the estimation of LDL-C. Trent SS et al. DOMINGO. 2013;310(19): 5310-2035 (http://education.IQ Engines.Veniti/faq/IPD060) CHOL/HDLC RATIO 3.5 <5.0 (calc) [facility] NON-HDL CHOLESTEROL 119 <130 mg/dL (calc) [facility] Comment: For patients with diabetes plus 1 major ASCVD risk factor, treating to a non-HDL-C goal of <100 mg/dL (LDL-C of <70 mg/dL) is considered a therapeutic option. Blood Blood / Unknown 04/28/2025 2 :25 PM EDT 04/28/2025 2:26 PM EDT us Sarah Ware PA-C LAB - BLOOD DRAW Final Resul t Performing Organization Address City/[facility]/ZIP Co de Phone Number [facility] [address] [address], [facility] [address] [address] * COMPREHENSIVE METABOLIC PANEL Routine (04/28/2025 2:25 PM EDT) GLUCOSE 85 65 - 99 mg/dL [facility] Comment: Fasting reference interval UREA NITROGEN (BUN) 17 7 - 25 mg/dL [facility] CREATININE (blood) 0.88 0.60 - 0.95 mg/dL [facility] EGFR 66 > OR = 60 mL/min/1. 73m2 [facility] BUN/CREATININE RATIO SEE NOTE: [facility] Comment: Not Reported: BUN and Creatinine are within reference range. SODIUM 141 135 - 146 mmol/L [facility] POTASSIUM 4.8 3.5 - 5.3 mmol/L [facility] CHLORIDE 105 98 - 110 mmol/L [facility] CARBON DIOXIDE 29 20 - 32 mmol/L [facility] CALCIUM 9.1 8.6 - 10.4 mg/dL [facility] PROTEIN, TOTAL 6.3 6.1 - 8.1 g/dL [facility] ALBUMIN 4.2 3.6 - 5.1 g/dL [facility] GLOBULIN 2.1 1.9 - 3.7 g/dL (calc) [facility] ALBUMIN/GLOBULI N RATIO 2.0 1.0 - 2.5 (calc) [facility] BILIRUBIN, TOTAL 0.3 0.2 - 1.2 mg/dL [facility] ALKALINE PHOSPHATASE 62 37 - 153 U/L [facility] AST 17 10 - 35 U/L [facility] ALT 18 6 - 29 U/L [facility] Blood Blood / Unknown 04/28/2025 2 :25 PM EDT 04/28/2025 2:26 PM EDT us Sarah Ware PA-C LAB - BLOOD DRAW Edited Resu lt - Final Performing Organization Address City/[facility]/ZIP Co de Phone Number [facility] [address] [address], [facility] [address] [place] [address] * HEALTH HISTORY SCANNED DOCUMENT (04/07/2025 3:00 AM EDT) 04/07/2025 3:00 AM EDT Chma Provider Default SCAN OTHER ORDERS Final Re sult * REFERRAL SCANNED DOCUMENT (03/18/2025 3:00 AM EDT) 03/18/2025 3:00 AM EDT Mikeuns Jorge SCAN REFERRAL Final Result * IMAGING SCANNED DOCUMENT (03/01/2025 3:00 AM EDT) Only the most recent of2 resultswithin the time period is included. 03/01/2025 3:00 AM EDT us Chau Oliver MD SCAN IMAGING Final Result * TSH W/RFLX FREE T4 (02/11/2025 10:27 AM EDT) TSH W/REFLEX TO FT4 0.71 0.40 - 4.50 mIU/L [facility] Blood Blood / Unknown 02/11/2025 1 0:27 AM EDT 02/11/2025 10:28 AM EDT us Chau Oliver MD LAB - BLOOD DRAW Final Result [facility] [address] [address], [facility] [address] [place] [address] * HISTORIC MAMMOGRAM (01/01/2025 3:00 AM EST) 01/01/2025 3:00 AM EST us Chau Oliver MD IMG MAMMO Final Result * HISTORIC DEXA SCAN (01/01/2025 3:00 AM EST) 01/01/2025 3:00 AM EST Chau Oliver MD IMG DXA Final Result * REFERRAL FOR COLONOSCOPY (05/23/2023 3:00 AM EDT) 05/23/2023 3:00 AM EDT Chau Oliver MD REFERRAL Edited Result - Final from Last 3 Months or Most Recently Relevant to Health Maintenance [place] D[place] - DENTAL [facility] MEDICARE COMPLETE Care Teams Repairer Screen Crusher Relationship Specialty Start Date End Date Chau Oliver MD [address] [place] [address] PCP - General Internal Medicine 12/21/21
== END 2025-05-13 06:34 | disposition home or self-care (01) ==
LOC: CF 06:33
PROVIDERS: Visit Provider Internal Medicine
DX: M47.817 Spondylosis without myelopathy or radiculopathy, lumbosacral region (principal)
CPT/HCPCS: 64635; 64636; J2003

== ENCOUNTER 2025-05-13 08:56 | Outpatient (AMB) | payer MEDICARE, SELFPAY ==
[2025-05-13 09:16] VITALS: BP 147/75; PULSE 69; RESP 16; O2SAT 98; BMI 22.3
--- NOTE | 2025-05-13 09:16 | MHC.OFFVIS ---
Vital Signs 05/13/25 09:16 05/13/25 10:43 Height 5 ft 2 in 5 ft 2 in Weight 122 lb 122 lb BMI 22.3 22.3 BP 147/75 H 143/96 H Blood Pressure Location Lt brachial Lt brachial Position Sitting Sitting Respiration 16 16 Pulse 69 77 Pulse Source Pulse Oximeter Pulse Oximeter Pulse Oximetry (%) 98 96 Oxygen Delivery Method Room Air Room Air Intake Visit Reasons: Right L3-L4-L5 RFA/ valium & oxy Allergies iron Allergy (Unknown, Verified 03/25/25 13:31) Rash Penicillins Allergy (Unknown, Verified 03/25/25 13:31) Rash HPI HPI Right L3-L4-L5 RFA/ valium & oxy: Details: Patient presents for scheduled procedure. Denies any recent cough, cold, infection, fever or other significant changes in medical history since last office visit. [facility] Medical History Age-related osteoporosis without current pathological fracture GERD without esophagitis Midline low back pain with sciatica Hypothyroidism Hypertension Physical Exam Vital Signs: Last Vital Signs Pulse 69 05/13/25 09:16 Resp 16 05/13/25 09:16 BP 147/75 H 05/13/25 09:16 Pulse Ox 98 05/13/25 09:16 Oxygen Delivery Method Room Air 05/13/25 09:16 BMI result Body Mass Index 22.3 Office Procedures Details: Radiofrequency lesioning medial branch nerves, Right L3, L4 medial branches and L5 dorsal ramus (L4/5 and L5/S1) (2 levels, 3 nerves) After obtaining written consent, pre-procedure blood pressure and heart rate were stable and recorded in the nursing record. Standard monitors were applied. The patient was placed in the prone position. The lumbar area was prepped with chloraprep and draped in sterile fashion. The skin over the target for each medial branch nerve was anesthetized with 0.5% lidocaine. An 18 gauge radiofrequency cannula was advanced to each target site under fluoroscopic guidance. No paresthesias were elicited with needle placement and aspiration was negative for heme and CSF. Impedences were verified under 600 ohms. Motor testing (2 Hz) confirmed needle placement at each site within the appropriate voltage thresholds. Each site was injected with 0.5 ml 2% preservative-free lidocaine. During the 1st attempt at radiofrequency lesioning, the patient reported developing paresthesia in her right leg so the radiofrequency was aborted and the needles were withdrawn slightly. We waited until the patient reported resolution of the paresthesia in her right leg. Radiofrequency lesioning was then performed again for 80 seconds at 80 deg Celcius. The needle was removed, skin cleansed and a sterile bandage was applied. The patient tolerated the procedure well and no complications were encountered. Following the procedure the patient's vital signs were stable. The patient was able to stand on her legs and transport herself to the wheelchair. She reported no right leg paresthesias following the procedure. The patient was discharged home in good condition with post-procedural instructions. Time Out: Immediately prior to the procedure, the following was verbally confirmed that there is a signed consent form and that the correct patient, planned procedure, site and side are consistent with documentation and that necessary equipment and/or blood products are available prior to the start of the case. Complications: none EBL: <5 cc 58925 - RFA Lumbar Medial Branches 19311 - Lumbar Medial Branches ADDNL Procedure code (CPT) selection complete Office Meds lidocaine (PF) 10 mg/mL (1 %) injection solution Performing Provider: Jorge Rene MD Performing Location: [facility] Administered by: Jorge Rene MD on 05/13/25 10:34 Dose Route Admin Location Dispensed Lot Number Expiration Date NDC Media Services Coordinator 5 mL subcut 5 mL Total Dispensed Waste 5 mL 0 % Assessment & Plan Assessment & Plan (1) Lumbosacral spondylosis: Code(s): M47.817 - Spondylosis without myelopathy or radiculopathy, lumbosacral region Category: Medical Plan Patient is status post right L3, L4 MBs and L5 DR radiofrequency ablation. Patient tolerated procedure well and was discharged home in stable condition with discharge instructions. All questions were answered. We will follow-up via telephone or in clinic to assess response to therapy. A follow-up appointment was made during today's visit. Orders: Orders FL guidance in treatment room Today Kiar Clemens APRN, ELECTRICAL EQUIPMENT ASSEMBLER M47.817 - Spondylosis without myelopathy or radiculopathy, lumbosacral region AMB RFA Radiofrequency Ablation Pain Management Today Jorge Rene MD M47.817 - Spondylosis without myelopathy or radiculopathy, lumbosacral region Medications: Refilled oxycodone take 30 minutes prior to arrival for procedure 5 mg PO BID PRN 1 tab 0RF pain Kira Clemens APRN, MILY diazepam (Valium) take 30 minutes prior to arrival for procedure 2 mg PO BEDTIME PRN 1 tab 0RF sleep Kira Clemens APRN, ELECTRICAL EQUIPMENT ASSEMBLER Coding Level of Care Code Procedure Only Diagnoses Lumbosacral spondylosis M47.817 CPT Codes Radiofrequency Ablation - Rad-Ablation 3: 99678 - RFA Lumbar Medial Branches ([id number]) Radiofrequency Ablation - Rad-Ablation 4: 86650 - Lumbar Medial Branches ADDNL ([id number])
[2025-05-13 10:43] VITALS: BP 143/96; PULSE 77; RESP 16; O2SAT 96; BMI 22.3
== END 2025-05-13 10:35 | disposition home or self-care (01) ==
LOC: HO.PMCPRC 08:56
PROVIDERS: PCP Internal Medicine; Visit Provider Internal Medicine
DX: M47.817 Spondylosis without myelopathy or radiculopathy, lumbosacral region (principal)
CPT/HCPCS: 64635; 64636

== ENCOUNTER 2025-06-10 09:01 | Outpatient (AMB) | payer MEDICARE, SELFPAY ==
--- NOTE | 2025-06-10 09:04 | A.OFFVIS_ITS ---
Vital Signs 06/10/25 09:10 06/10/25 09:26 Height 5 ft 2 in Weight 123 lb 4 oz BMI 22.5 BP 182/76 H 140/68 H Blood Pressure Location Rt brachial Lt brachial Position Sitting Sitting Pulse 71 Pulse Source Pulse Oximeter Pulse Oximetry (%) 96 Oxygen Delivery Method Room Air Comment bp recheck Intake Visit Reasons: s/p erica L3-L4-L5 RFA Intake Note: Pain today 0/10 Veterans' Coordinator Required: Yes Veterans' Coordinator Language: [employer] Handler Services: Veterans' Coordinator Present Veterans' Coordinator Name: Anuj #[id number] Accompanied by: Self / Same As Patient Allergies iron Allergy (Unknown, Verified 06/10/25 09:10) Rash Penicillins Allergy (Unknown, Verified 06/10/25 09:10) Rash HPI Comments Details: The patient is an 80-year-old female presenting for follow-up after undergoing bilateral L3, L4, L5 medial branch RFA procedure on 05/06/25 and 05/13/[address] Rene. Patient reports no back pain since procedure and rates back pain at 0/10 at rest and movements. Patient also reports acute left shoulder and upper arm pain that began after the patient attempted to lift her who had fallen, approximately one month ago. The pain is described as severe and extends from the left arm to the back, posterior shoulder and neck, impacting her ability to sleep on the left side. The patient had shoulder surgery approximately ten years ago in [place], but the current pain is attributed to the recent lifting incident. Patient reports she has mention this to another provider and has been sent for PT. She denies any recent imaging of shoulder or neck regions. The neck pain has been present for four days, with the patient unable to turn her head and experiencing pain radiating to the posterior neck. The pain increases with neck flexion, but [id number] movement is not affected. Denies any recent cough, cold, infection, fever or any other significant changes in medical history since last office visit. Past Procedures: 05/13/25: Radiofrequency lesioning medial branch nerves, Right L3, L4 medial branches and L5 dorsal ramus (L4/5 and L5/S1) (2 levels, 3 nerves)-100% pain relief 05/06/25: Radiofrequency lesioning medial branch nerves, Left L3, L4 medial branches and L5 dorsal ramus (L4/5 and L5/S1) (2 levels, 3 nerves)-100% pain relief 03/15/25: Bilateral Diagnostic L3-L4-DRL5 MBB-100% pain relief for 2 days in the back, ongoing right leg pain with certain movements PRIOR: The patient is an 80-year-old female presenting with follow-up concerns of back and right leg pain. The pain has been ongoing and worsening over the past few months, characterized as severe and radiating from the lumbar region down to the right leg. The patient notes significant discomfort, with a pain severity rating of 10/10. Her history of osteoporosis limits the treatment options, as she cannot receive steroid injections due to the risk of exacerbating her bone condition. Concurrently, arthritis is also contributing to her back pain. Her MRI in October did not display significant pathology, yet the pain intensifies. She is interested in Neurosurgery referral and requests this at [facility]. Consultation with our [facility] team about recent lumbar MRI findings concluded no surgical intervention needed. Additionally, the patient experiences significant right knee pain potentially contributing to her overall leg discomfort. While she has not had prior knee injections and is hesitant to pursue them, the option of diagnostic imaging for further assessment and potential gel injections without steroids was discussed. - Onset & Timing: Several months ago, progressively worsening - Quality & Character: Radiating pain from lower back to right leg, primarily affecting the front; originates L4-L5 - Primary Location: Lower back with radiation to right leg - Exacerbating Factors: Movements, bending, walking, prolonged standing or sitting, climbing stairs - Relieving Factors: Rest, activity modifications, heat, Tylenol - Functional Impact: Severe, rated as 10/10 pain; impacts daily activities - Affect: Severe pain causing significant distress - Analgesia: Currently using Tylenol; pain level rated at 10/10; no specific goal pain level provided - Adverse Effects: No reported side effects from Tylenol - Activities of Daily Living: Pain significantly affects mobility; difficulty performing daily tasks - Aberrant Drug Related Behaviors: None reported PRIOR: Patient presents today for follow-up to discuss recent lumbar spine MRI results. She continues to endorse significant low back pain which radiates into her both anterior thighs into lateral lower legs this is associated numbness and tingling and weakness in the left lower extremity. Patient reports pain 10/10. She states tramadol has been partially effective. 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 She requests therapeutic FAUSTO to alleviate her symptoms. Denies any fever or chills, abdominal or groin pain, bladder or bowel dysfunction or saddle anesthesia. PRIOR: Patient is a pleasant 79 years old Martiniquais speaking female with history of c hronic midline low back pain with sciatica and osteoporosis, presents today for initial evaluation of low back pain with right-sided radiculopathy. She presents in a moderate distress today and constantly changes her positioning from sitting, standing and leaning forward to alleviate her acute back pain. Denies any recent trauma, injury, or falls. 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 Back pain is axial and also radiates to right lower extremity anteriorly and at times radiates to her left leg laterally and posteriorly. She reports numbness and tingling with burning sensation in her right hernández and dorsal foot. Her mobility, functioning, sleep and ADLs are significantly limited due to pain. She is concerned for not able to complete her house chores at home. She experiences spinal-stenosis related pain and cannot pursue formal physical therapy. Denies any fever, chills, abdominal or groin pain, bladder or bowel dysfunction or saddle anesthesia. Reports right lower extremity weakness due to pain. She ambulates with walker. Location: Low back pain radiates into RLE anteriorly, at times on the left posterior Duration: Chronic pain, worsening over the past one year Characteristics of symptom or complaint: Shooting, stabbing, sharp, numbness, tingling, radiating, heavy, aching Aggravating or associated factors: Movements, sitting, walking, sleeping, cold weather, ADLs, housechores Relieving factors: Rest, changing positions, modifying activities, heat, Tylenol [facility] Medical History (Updated 06/10/25 @ 09:18 by JESUSITA Gonzalez) Age-related osteoporosis without current pathological fracture GERD without esophagitis Midline low back pain with sciatica Hypothyroidism Hypertension Surgical History (Updated 06/10/25 @ 09:17 by JESUSITA Gonzalez) History of shoulder surgery (~2014) Review of Systems Const All systems reviewed & are unremarkable except as noted in HPI and below Physical Exam Vital Signs: Last Vital Signs Pulse 71 06/10/25 09:10 BP 140/68 H 06/10/25 09:26 Pulse Ox 96 06/10/25 09:10 Oxygen Delivery Method Room Air 06/10/25 09:10 BMI result Body Mass Index 22.5 General: Appears afebrile. Alert and oriented. Mood and affect appropriate. Follows and participates in conversation appropriately. Respiratory effort is unlabored. No cough. Able to transition from sit to stand unassisted. Ambulates with left normal heel strike and toe off and increased pain on the lef t. Neck Neck: Yes normal visual inspection, Yes no lymphadenopathy, Yes supple, No anterior neck swelling, Yes no JVD, No prominent supraclavicular fat pad and No prominent dorsocervical fat pad General: Yes no CVA tenderness Back/Spine/Pelvis Back: no CVA tenderness Cervical Spine: loss of normal cervical lordosis, cervical muscular tenderness, pain with cervical ROM (flexion), cervical spasm, No Cervical spine tenderness and No step off deformity Thoracic/Lumbar Spine: thoracic and lumbar spine normal to inspection, No Thoracic/lumbar spine scar(s), No pain with thoraco-lumbar ROM, thoraco-lumbar ROM limited, No thoracic spinal tenderness and No lumbar spinal tenderness (L3- S1) Sacroiliac joints: not bilaterally Extrem General: Yes capillary refill normal, Yes no clubbing, cyanosis or edema and Yes no calf tenderness Left upper extremity: shoulder/upper arm (Decreased ROM due to pain. I/E rotations reproduce moderate pain) Details: inspection abnormal, tenderness Location: of the A-C joint, over the biceps tendon, over the subacromial bursa and over the deltoid bursa, axillary nerve sensory function normal and crepitus; no ecchymosis, no deformity and no unsual warmth Results Reviewed Results Reviewed: MR SPINE LUMBAR without CONTRAST 10/17/24 INDICATION: Radiculopathy, lumbar region. Numbness right leg ongoing for 5 weeks. TECHNIQUE: Unenhanced multiplanar, multisequence MR imaging of the lumbar spine. COMPARISON: MR lumbar 08/08/2021, 04/15/2020. FINDINGS: Normal lumbar alignment is demonstrated. Vertebral heights are well maintained. Bone marrow signal is within normal limits, and no suspicious osseous lesion is identified. Conus medullaris is unremarkable. There are bilateral nerve root cysts demonstrated at T11-12 and T12-L1 on the right. Paraspinal soft tissues and visualized portions of the abdomen and pelvis are unremarkable. At L1-2 there is no significant disc herniation or protrusion. No central canal or neural foraminal stenosis is demonstrated. At L2-3 there is mild annular disc bulge. There is minimal facet arthrosis. There is no significant central canal or neural foraminal stenosis. At L3-4 there is no mild annular disc bulge. There is no significant facet arthrosis. There is no significant central canal or neural foraminal stenosis. At L4-5 there is broad-based disc bulge and mild ligament flavum hypertrophy. There is mild narrowing of the central canal. There is mild bilateral neural foraminal stenosis greater on the left. Findings appear stable. At L5-S1 there is no significant disc herniation or protrusion. No central canal or neural foraminal stenosis is demonstrated. 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 IMPRESSION: Degenerative changes predominately at L4-5 with narrowing of the neuroforamina greater on the left. Findings appear stable. No other significant central canal or neural foraminal stenosis. DEXA axial skeleton 01/01/25 IMPRESSION: Based on bone mineral density, and according to World Health Organization (WHO) criteria, the diagnosis is consistent with osteoporosis. Assessment & Plan Assessment & Plan (1) Cervicalgia: Code(s): M54.2 - Cervicalgia Category: Medical (2) Cervical spondylosis: Code(s): M47.812 - Spondylosis without myelopathy or radiculopathy, cervical region Category: Medical (3) Left shoulder pain: Code(s): M25.512 - Pain in left shoulder Category: Medical (4) Lumbosacral spondylosis: Code(s): M47.817 - Spondylosis without myelopathy or radiculopathy, lumbosacral region Category: Medical (5) Lumbar degenerative disc disease: Code(s): M51.369 - Other intervertebral disc degeneration, lumbar region without mention of lumbar back pain or lower extremity pain Category: Medical Plan The patient will undergo x-rays of the neck and shoulder to assess for any dislocation or injury. Physical therapy is recommended to address the pain, improve mobility and ROM, and reduce symptoms. Continue Tylenol, activity modifications, heat/ice therapy, rest, elevation for pain management and to monitor symptoms. Patient will monitor symptoms and call our office or seek medical evaluation at ER if symptoms worsen. All questions and concerns have been answered and patient agreed with the plan. Follow up and sooner as needed. Patient was informed and verbally consented to the use of an ambient scribe for clinic note documentation during this visit. Orders: Orders XR shoulder LT min 2V Today M25.512 - Pain in left shoulder XR cervical spine 4V Today M47.812 - Spondylosis without myelopathy or radiculopathy, cervical region, M54.2 - Cervicalgia Coding Level of Care Code Est Pt Level 4 (06401) Complex EM visit Add On G2211 Diagnoses Cervicalgia M54.2 Cervical spondylosis M47.812 Left shoulder pain M25.512 Lumbosacral spondylosis M47.817 Lumbar degenerative disc disease M51.369
[2025-06-10 09:10] VITALS: BP 182/76; PULSE 71; O2SAT 96; BMI 22.5
--- OUTSIDE RECORDS SUMMARY | 2025-06-10 09:25 | XMS_ITS | Clinical Summary ---
Author Organization [facility] Address [address] [place] [address] Care Team Providers Care Associate Store Director Name Role Phone Chau Oliver MD Primary Care Provider [phone] Source Comments PLEASE NOTE, if this patient [...] 03/09/2022 Medications diclofenac sodium (VOLTAREN) 1 % gelIndications:Mi dline low back pain without sciatica, unspecified chronicity Apply 2-4 g topically 2 (two) times daily 100 g 12/21/19 23 Active omeprazole (PRILOSEC) [address] capsule Take 1 Capsule by mouth every morning before breakfast 90 Capsule 05/15/20 23 Active famotidine (PEPCID) 40 mg tabletIndications :Gastroesophageal reflux disease without esophagitis TAKE 1 TABLET BY MOUTH DAILY 90 Tablet 05/14/20 24 Active fluticasone (FLONASE) 50 mcg/actuation nasal sprayIndications: Other rhinitis SHAKE LIQUID AND USE 1 SPRAY IN BOTH NOSTRILS ONCE DAILY 16 g 5 05/29/20 24 Active loratadine (CLARITIN) 10 mg tabletIndications :Other rhinitis Take 1 Tablet by mouth once daily as needed for allergies 90 Tablet 1 05/29/20 24 Active calcium (OS-JOSÉ MIGUEL) 500 mg calcium (1,250 mg) tabletIndications :Age-related osteoporosis without current pathological fracture Take 1 Tablet by mouth 2 (two) times daily 90 Tablet 5 09/03/20 24 Active cholecalciferol (VITAMIN D-3) 50 mcg (2,000 unit) capsuleIndication s:Age-related osteoporosis without current pathological fracture Take 1 Capsule by mouth once daily 100 Capsule 5 09/03/20 24 Active acetaminophen (TYLENOL) 500 mg tabletIndications :Primary hypertension Take 1 Tablet by mouth every 6 (six) hours as needed for pain 60 Tablet 12/24/19 25 Active levothyroxine 75 mcg tabletIndications :Other specified hypothyroidism Take 1 Tablet by mouth once daily TAKE 1 TABLET BY MOUTH DAILY 90 Tablet 1 12/24/19 25 Active blood pressure monitorIndication s:Primary hypertension Pt has HTN- Code I10 Check BP everday 1 Kit 01/07/20 25 Active hydroCHLOROthiazi de (HYDRODIURIL) 25 mg tabletIndications :Primary hypertension TAKE 1 TABLET BY MOUTH DAILY 90 Tablet 05/17/20 25 Active amLODIPine (NORVASC) 5 mg tabletIndications :Primary hypertension Take 1 Tablet by mouth once daily. 90 Tablet 1 05/17/20 25 Active meclizine (ANTIVERT) 25 mg tabletIndications :Vertigo Take 1 Tablet by mouth once daily as needed for nausea or dizziness. 30 Tablet 1 05/17/20 25 Active melatonin 3 mg tabletIndications :Primary insomnia Take 1 Tablet by mouth nightly at bedtime as needed for sleep. 30 Tablet 2 05/17/20 25 Active atorvastatin (LIPITOR) 40 mg tabletIndications :Elevated LDL cholesterol level TAKE 1 TABLET BY MOUTH DAILY 90 Tablet 1 06/05/20 25 Active atorvastatin (LIPITOR) 40 mg tabletIndications :Elevated LDL cholesterol level TAKE 1 TABLET BY MOUTH DAILY 90 Tablet 1 06/05/20 25 Active meclizine (ANTIVERT) 25 mg tabletIndications :Vertigo Take 1 Tablet by mouth once daily as needed for nausea or dizziness 30 Tablet 1 07/04/20 23 2024 Discontinued(R eorder (E-Cancel Not Sent)) amLODIPine (NORVASC) 5 mg tabletIndications :Primary hypertension Take 1 Tablet by mouth once daily 90 Tablet 1 12/24/19 25 2024 Discontinued(R eorder (E-Cancel Not Sent)) atorvastatin (LIPITOR) 40 mg tabletIndications :Elevated LDL cholesterol level Take 1 Tablet by mouth once daily 90 Tablet 1 12/24/19 25 08/02/ 2025 Discontinued hydroCHLOROthiazi de (HYDRODIURIL) 25 mg tabletIndications :Primary hypertension Take 1 Tablet by mouth once daily 90 Tablet 02/12/20 25 2024 Discontinued Active Problems Problem Noted Date Diagnosed Date Pain in right leg 03/10/2025 Neck pain, chronic 03/10/2025 Major depression, single episode 03/10/2025 Gastroesophageal reflux disease without esophagi tis 06/11/2024 Age-related osteoporosis wit hout current pathological fracture 05/22/2022 Overview (10/05/2024): Bone Densitometer- [facility] 09/28/2024 Osteoporosis Refuses to be on medication. Needs a [facility] because of Bone pain. Pt referred Calcium and Vit d Elevated LDL cholesterol level 03/13/2022 Primary hypertension 03/09/2022 Other specified hypothyroidism 03/09/2022 Midline low back pain without sciatica Overview (03/09/2022): Referred to [facility] Had MRI [facility] [address] by previous MD Mild disc herniation L3-4, L4-5 Broad based posterior disc bulge with small central protrusion and L5-S1 minimal broad based disc bulge Encounters Date Type Department Care Team Description 05/18/2025 Results Follow-Up [address] [phone] Gisel Hernandez FNP 05/17/2025 10:00 AM EDT Office Visit [address] [address] Gisel Hernandez FNP 04/28/2025 1:20 PM EDT Office Visit [address] [phone] Sarah Ware PA-C from Last 3 Months Immunizations Immunization Administration [...] Sign Reading Time Taken Comments Blood Pressure 126/60 05/17/2025 10:06 AM EDT Pulse 74 05/17/2025 10:06 AM EDT Temperature 36.6 C (97.9 F) 05/17/2025 10:06 AM EDT Respiratory Rate 16 05/17/2025 10:06 AM EDT Oxygen Saturation 99% 05/17/2025 10:06 AM EDT Inhaled Oxygen Concentration - - Weight 57.4 kg (126 lb 9.6 oz) 05/17/2025 10:06 AM EDT Height 157.5 cm (5' 2 ) 05/17/2025 10:06 AM EDT Body Mass Index 23.16 05/17/2025 10:06 AM EDT Plan of Treatment Upcoming Encounters Date Type Department Care Team (Late st Contact Info) Description 06/25/2025 10:00 AM EDT Office Visit [facility] [address] [place] [phone] Saloni Otero LPN [phone] [place], [place] [id number] Health Maintenance Due Date Last Done Comments Advanced Care Planning 1945 Medicare Annual Wellness Visit [address] Colonography 02/24/1988 FIT/gFOBT 02/24/1988 Fecal DNA 02/24/1988 Flexible Sigmoidoscopy 02/24/1988 Imm-Influenza (#1) 2025 08/06/2022, 1 , 07/26/2020, Additional history exists Depression Monitoring 07/29/2025 04/28/2025 , 12/24/2024, 12/21/2022, Additional history exists [id number] ( season) 2025 01/14/2021, 12/22/2020 Postponed from 07/05/2024 (Patient postponement) Imm-Zoster, Recombinant (2 of 3) 07/29/2025 03/25/2014 Postponed from 05/20/2014 (Patient postponement) Breast Cancer Screening (Mammogram) 01/01/2026 01/01/2025, 01/30/2024, 01/30/2024, Additional history exists Falls Prevention 02/11/2026 02/11/2025, , 04/03/2023, Additional history exists Imm-RSV (adult) (1 - 1-dose 75+ series) 04/28/2026 Postponed from 2018 (Patient postponement) TSH Monitoring 04/28/2026 04/28/2025, 04, 01/17/2024, Additional history exists Tobacco Screening 05/17/2026 05/17/2025 Imm-DTaP/Tdap/Td (3 - Td or Tdap) 03/09/2032 03/09/2022, 03/25/2014 Colonoscopy 05/23/2033 05/23/2023 Colorectal Cancer Screening 05/23/2033 Imm-Pneumococcal 50+ Completed 05/29/2024, 04/03/2023, 03/09/2022, Additional history exists Alcohol and Drug Screen Completed 12/24/19, 01/15/2024, 12/21/2022, Additional history exists Bone Density Screening Completed , 09/28/2024, 09/28/2024, Additional history exists Procedures Procedure Name Priority Date/Time Associated Diagnosis Comments RFLX - REFLEXIVE URINE CULTURE Routine 05/17/2025 11:10 AM EDT URINALYSIS, COMPLETE W/REFLEX TO CULTURE Routine 05/17/2025 11:10 AM EDT Routine general medical examination at a [facility] facility CARD SCANNED DOCUMENT 05/17/2025 3:00 AM EDT REFERRAL SCANNED DOCUMENT 05/13/2025 3:00 AM EDT VITAMIN D, 1,25-DIHYDROXY Routine 04/28/2025 2:25 PM [...] 04/07/2025 3:00 AM EDT REFERRAL SCANNED DOCUMENT 03/25/2025 3:00 AM EDT REFERRAL SCANNED DOCUMENT 03/18/2025 3:00 AM EDT HISTORIC DEXA SCAN 01/01/2025 3: 00 AM EST HISTORIC MAMMOGRAM 01/01/2025 3: 00 AM EST REFERRAL FOR COLONOSCOPY Routine 05/23/2023 3:00 AM EDT Health care maintenance from Last 3 Months or Most Recently Relevant to Health Maintenance Results * URINALYSIS, COMPLETE W/REFLEX TO CULTURE Urine Routine (05/17/2025 11:10 AM EDT) COLOR YELLOW YELLOW [facility] APPEARANCE CLEAR CLEAR [facility] SPECIFIC GRAVITY 1.013 1.001 - 1.035 [facility] URINE PH 6.0 5.0 - 8.0 [facility] GLUCOSE NEGATIVE NEGATIVE [facility] BILIRUBIN NEGATIVE NEGATIVE [facility] [place] [email or web address] KETONES NEGATIVE NEGATIVE [facility] OCCULT BLOOD NEGATIVE NEGATIVE [facility] URINE PROTEIN NEGATIVE NEGATIVE [facility] NITRITE NEGATIVE NEGATIVE [facility] LEUKOCYTE ESTERASE NEGATIVE NEGATIVE [facility] URINE LEUKOCYTES NONE SEEN < OR = 5 [facility] RBC NONE SEEN < OR = 2 [facility] SQUAMOUS EPITHELIAL CELLS NONE SEEN < OR = 5 [facility] BACTERIA NONE SEEN NONE SEEN [facility] HYALINE CAST NONE SEEN NONE SEEN [facility] SEE NOTE See Below [facility] Comment: This urine was analyzed for the presence of WBC, RBC, bacteria, casts, and other formed elements. Only those elements seen were reported. Urine Urine specimen / Unknown 05/17/2025 11:10 AM EDT 05/17/2025 11:11 AM EDT Gisel Hernandez [facility] URINE AMBULATORY Final Result [facility] [address] [place] [id number], [facility] [address] [place] [phone] * RFLX - REFLEXIVE URINE CULTURE Routine (05/17/2025 11:10 AM EDT) REFLEXIVE URINE CULTURE See Below [facility] Comment:NO CULTURE INDICATED 05/17/2025 11:1 0 AM EDT 05/17/2025 11:11 AM EDT Gisel Hernandez [facility] LAB - MICROBIOLOGY A MBULATORY Final Result [facility] [address] [address], [facility] [address] [address] * CARD SCANNED DOCUMENT (05/17/2025 3:00 AM EDT) 05/17/2025 3:00 AM EDT Gisel Hernandez TI[facility] SCAN ECGS Larisa l Result * REFERRAL SCANNED DOCUMENT (05/13/2025 3:00 AM EDT) Only the most recent of3 resultswithin the time period is included. 05/13/2025 3:00 AM EDT Chau Oliver MD SCAN REFERRAL Final Result * VITAMIN D, 1,25-DIHYDROXY Routine (04/28/2025 2:25 PM EDT) VITAMIN D, 1, 25 (OH)2, TOTAL 48 18 - 72 pg/mL [facility]/N [facility] [place] VITAMIN D3, 1, 25 (OH)2 48 pg/mL [facility] [place] VITAMIN D2, 1, 25 (OH)2 <8 pg/mL [facility]/N [facility] [place] Comment: Vitamin D3, 1,25(OH)2 indicates both endogenous production and supplementation. Vitamin D2, 1,25(OH)2 is an indicator of exogenous sources, such as diet or supplementation. Interpretation and therapy are based on measurement of Vitamin D,1,25(OH)2, Total. This test was developed and its analytical performance characteristics have been determined by [employer] [facility], [place], [place]. It has not been cleared or approved by the FDA. This assay has been validated pursuant to the CLIA regulations and is used for clinical purposes. Blood Blood / Unknown 04/28/2025 2 :25 PM EDT 04/28/2025 2:26 PM EDT us Sarah Ware PA-C LAB - BLOOD DRAW Final Resul t Performing Organization Address City/[facility]/ZIP Co de Phone Number [email or web address] [address] , [employer] [facility]/[place] [address] * THYROID CASCADING REFLEX PANEL Routine (04/28/2025 2:25 PM EDT) TSH 0.74 0.40 - 4.50 mIU/L [email or web address] Blood Blood / Unknown 04/28/2025 2 :25 PM EDT 04/28/2025 2:26 PM EDT [facility] Ware PA-C LAB - BLOOD DRAW Edited Resu lt - Final Performing Organization Address [facility] de Phone Number [email or web address] [address] [address], [employer] [address] [phone] * VITAMIN B12 & FOLATE Routine (04/28/2025 2:25 PM EDT) VITAMIN B12 496 200 - 1,100 pg/mL [facility] FOLATE, SERUM 10.2 5.5 ng/mL [facility] Comment: Reference Range Low: <3.4 Borderline: 3.4-5.4 Normal: >5.4 Blood Blood / Unknown 04/28/2025 2 :25 PM EDT 04/28/2025 2:26 PM EDT [facility] [place] LAB - BLOOD DRAW Edited Resu lt - Final Performing Organization Address City/[facility]/ZIP Co de Phone Number [email or web address] [address] [address], [place] [facility] [address] [place] [phone] * BLOOD COUNT COMPLETE AUTO&AUTO DIFRNTL WBC Routine (04/28/2025 2:25 PM EDT) WHITE BLOOD CELL COUNT 6.7 3.8 - 10.8 Thousand/ uL [facility] RED BLOOD CELL COUNT 4.52 3.80 - 5.10 Million/u L [facility] HEMOGLOBIN 13.9 11.7 - 15.5 g/dL [facility] HEMATOCRIT 43.0 35.0 - 45.0 % [facility] MCV 95.1 80.0 - 100.0 fL [facility] MCH 30.8 27.0 - 33.0 pg [facility] MCHC 32.3 32.0 - 36.0 g/dL [facility] Comment: For adults, a slight decrease in the calculated MCHC value (in the range of 30 to 32 g/dL) is most likely not clinically significant; however, it should be interpreted with caution in correlation with other red cell parameters and the patient's clinical condition. RDW 13.4 11.0 - 15.0 % [facility] PLATELET COUNT 163 140 - 400 Thousand/ uL [facility] MPV 10.2 7.5 - 12.5 fL [facility] ABSOLUTE NEUTROPHILS 4,241 1,500 - 7,800 cells/uL [facility] ABSOLUTE LYMPHOCYTES 1,782 850 - 3,900 cells/uL [facility] ABSOLUTE MONOCYTES 590 200 - 950 cells/uL [facility] ABSOLUTE EOSINOPHILS 40 15 - 500 cells/uL [facility] ABSOLUTE BASOPHILS 47 0 - 200 cells/uL [facility] NEUTROPHILS PCT 63.3 % QUES [facility] LYMPHOCYTES 26.6 % [facility] [employer] MONOCYTES 8.8 % [facility] EOSINOPHILS 0.6 % [facility] BASOPHILS 0.7 % [facility] Blood Blood / Unknown 04/28/2025 2 :25 PM EDT 04/28/2025 2:26 PM EDT us Sarah Ware PA-C LAB - BLOOD DRAW Edited Resu lt - Final [email or web address] [address] [address], [facility] [address] [place] [address] * (ABNORMAL) LIPID PANEL Routine (04/28/2025 2:25 PM EDT) CHOLESTEROL, TOTAL 167 <200 mg/dL [facility] HDL CHOLESTEROL 48(L) > OR = 50 mg/dL [facility] TRIGLYCERIDES 208(H) <150 mg/dL [facility] Comment: If a non-fasting specimen was collected, consider repeat triglyceride testing on a fasting specimen if clinically indicated. Acosta et al. J. of Clin. Lipidol. 2015;9:129-169. LDL-CHOLESTEROL 89 99 mg/dL (calc) [facility] Comment: Reference range: <100 Desirable range <100 mg/dL for primary prevention; <70 mg/dL for patients with CHD or diabetic patients with > or = 2 CHD risk factors. LDL-C is now calculated using the Trent-Dominguez calculation, which is a validated novel method providing better accuracy than the Friedewald equation in the estimation of LDL-C. Trent SS et al. DOMINGO. 2013;310(19): 4199-3498 (http://education.Macoscope/faq/TJO400) CHOL/HDLC RATIO 3.5 <5.0 (calc) [facility] NON-HDL CHOLESTEROL 119 <130 mg/dL (calc) [facility] Comment: For patients with diabetes plus 1 major ASCVD risk factor, treating to a non-HDL-C goal of <100 mg/dL (LDL-C of <70 mg/dL) is considered a therapeutic option. Blood Blood / Unknown 04/28/2025 2 :25 PM EDT 04/28/2025 2:26 PM EDT us Sarah Ware PA-C LAB - BLOOD DRAW Final Resul t Performing Organization Address [facility]/ZIP Co de Phone Number [email or web address] [address] [address], [facility] [address] [place] [address] * COMPREHENSIVE METABOLIC PANEL Routine (04/28/2025 2:25 PM EDT) GLUCOSE 85 65 - 99 mg/dL [facility] Comment: Fasting reference interval UREA NITROGEN (BUN) 17 7 - 25 mg/dL [facility] CREATININE (blood) 0.88 0.60 - 0.95 mg/dL [facility] EGFR 66 > OR = 60 mL/min/1. 73m2 [facility] BUN/CREATININE RATIO SEE NOTE: [facility] Comment: Not Reported: BUN and Creatinine are within reference range. SODIUM 141 135 - 146 mmol/L [facility] POTASSIUM 4.8 3.5 - 5.3 mmol/L [facility] CHLORIDE 105 98 - 110 mmol/L [facility] CARBON DIOXIDE 29 20 - 32 mmol/L [facility] CALCIUM 9.1 8.6 - 10.4 mg/dL [facility] PROTEIN, TOTAL 6.3 6.1 - 8.1 g/dL [facility] ALBUMIN 4.2 3.6 - 5.1 g/dL [facility] GLOBULIN 2.1 1.9 - 3.7 g/dL (calc) [facility] ALBUMIN/GLOBULI N RATIO 2.0 1.0 - 2.5 (calc) [facility] BILIRUBIN, TOTAL 0.3 0.2 - 1.2 mg/dL [facility] ALKALINE PHOSPHATASE 62 37 - 153 U/L [facility] AST 17 10 - 35 U/L [facility] ALT 18 6 - 29 U/L [facility] Blood Blood / Unknown 04/28/2025 2 :25 PM EDT 04/28/2025 2:26 PM EDT Sarah Ware PA-C LAB - BLOOD DRAW Edited Resu lt - Final [facility] [address] [address], [facility] [address] [address] * HEALTH HISTORY SCANNED DOCUMENT (04/07/2025 3:00 AM EDT) 04/07/2025 3:00 AM EDT Chid Provider Default SCAN OTHER ORDERS Final Re sult * HISTORIC MAMMOGRAM (01/01/2025 3:00 AM EST) [...] Insurance MD MEDICAID DENTAL GENERIC [facility]TE Care Teams Associate Store Director Relationship Specialty Start Date End Date Chau Oliver MD [address] [place] [address] PCP - General Internal Medicine 12/21/21
--- OUTSIDE RECORDS SUMMARY | 2025-06-10 09:25 | XMS_ITS | Patient Health Record ---
Author Organization [facility] Address [address] [place], [place] [id number] Care Team Providers Care Director Digital Catalogue Name Role Phone Tati Patrick Primary Care [...] 13 IM Intramuscular 10/04/2020 Administered NDC 00 [id number] Social History Tobacco Use: Social History Observation Description Date Details (start date - stop date) Never Smoker NA - NA Tobacco Use Assessment MU Question Answer Notes What is your current smoking status? nonsmoker Problems Problem Type SNOMED Code ICD Code Onset Dates Problem Status W/U Status Risk Notes Problem Helicobacter pylori (21032512) Helicobacter pylori [H. pylori] as the cause of diseases classified elsewhere (B96.81) Active confirmed Treated 11/2019. Problem Hypothyroidism (84715007) Hypothyroidism , unspecified (E03.9) Active confirmed Problem Major depression, single episode (25844651) Major depressive disorder, single episode, unspecified (F32.9) Active confirmed Problem Visual difficulty (966835995) Unspecified visual loss (H54.7) Active confirmed Problem Essential hypertensi on (12909966) Essential (primary) hypertension (I10) Active confirmed Problem Gastro-esophageal reflux disease without esophagitis (367424967) Gastro-esophag eal reflux disease without esophagitis (K21.9) Active confirmed Improved after treatment for H. pylori. Symptoms resolved. Problem Constipation (94317918) Constipation, unspecified (K59.00) Active confirmed Problem Shoulder joint pain (621677099) Pain in right shoulder (M25.511) Active confirmed Problem Shoulder joint pain (463903117) Pain in left shoulder (M25.512) Active confirmed Problem Backache (820936993) Dorsalgia, unspecified (M54.9) Active confirmed Problem Pain in right leg (934157498) Pain in right leg (M79.604) Active confirmed Problem Acquired renal cysti c disease (994028356) Cyst of kidney, acquired (N28.1) Active confirmed Problem Chest pain (29318692) Chest pain , unspecified (R07.9) Active confirmed Problem Flushing (20450136) Flushing (R23.2) Active confirmed Problem Edema (72471180) Edema, unspecified (R60.9) Active confirmed Problem Abnormal weight loss (366078339) Abnormal weight loss (R63.4) Active confirmed Problem Pure hypercholesterolemia (418119036) Pure hypercholester olemia, unspecified (E78.00) Active confirmed [...] [employer] Medicare Complete [address] [address] [place] [address] [id number] Santa Maguire Self - patient is the insured 1 Medical (General) History Medical History History ICD Code HTN hyperlipidemia hypothyroid Surgical History Surgery Date(Month/Year) Rotator cuff repair, first on R, then on L. 2007, 2012 Hysterectomy - unsure of what was done 1 977 [facility] for abdominal p ain. 1978
--- OUTSIDE RECORDS SUMMARY | 2025-06-10 09:25 | XMS_ITS | Clinical Summary ---
Author Organization [facility] Address [address] [place] [address] Phone Care Team Providers Care Stunner Animal Name Role Phone Chau Oliver MD Primary [...] 1 (one) time each day. 06/28/2021 Active neomycin-polymy luis-dexamethame thasone (POLYDEX) 3.5 mg/g-10,000 [...] without sciatica 2 Overview (03/10/2025): Referred to [facility] Had MRI 2020 [facility] [address] by previous MD Mild disc herniation L3-4, L4-5 Broad based posterior disc bulge with small central protrusion and L5-S1 minimal broad based disc bulge Encounters Date Type Department Care Team Description 05/31/2025 9:30 AM EDT Treatment [address] [phone] Kalpesh Conway M, PT Chronic left shoulder pain (Primary Dx); Neck pain, chronic 05/20/2025 9:00 AM EDT Treatment [address] [phone] Kalpesh Conway M, PT Chronic left shoulder pain (Primary Dx); Neck pain, chronic 05/18/2025 9:30 AM EDT Treatment [address] [phone] Joao Amaya, MEDICAL RECORD CLERK Chronic left shoulder pain (Primary Dx); Neck pain, chronic 05/04/2025 11:00 AM EDT Treatment [address] [phone] Joao Amaya, MEDICAL RECORD CLERK Chronic left shoulder pain (Primary Dx) 04/29/2025 12:00 PM EDT Treatment [address] [phone] Joao Amaya, MEDICAL RECORD CLERK Chronic left shoulder pain (Primary Dx); Neck pain, chronic 04/08/2025 9:00 AM EDT Evaluation [address] [phone] Kalpesh Conway, PT Neck pain, chronic; Chronic left shoulder pain 03/10/2025 1:00 PM EDT Consult [facility] [place] [address] [phone] Lance Brown PA Neck pain, chronic (Primary [...] Date Site/Laterality Comments SHOULDER SURGERY Bilateral PROCEDURE: RI UNLISTED PROCEDURE SHOULDER HYSTERECTOMY N/A PROCEDURE: HISTORICAL [...] 03/10/2025 1:03 PM EDT Plan of Treatment Health Maintenance Due Date Last Done Comments Zoster Vaccines (2 of 3) 05/20/2014 03/25/2014 RSV Immunization Adult Patients (1 - 1-dose 75+ series) 2018 Falls Risk Assessment 10/13/2022 Medicare Annual Wellness Visit 10/13/2022 Social Influencers of Health Screening 10/13/2022 COVID-19 Vaccine ( - season) 2024 01/14/2021, 12/22/2020 Depression Screening 11/04/2024 Influenza Vaccine (#1) 2025 , 08/25/2021, 07/26/2020, Additional history exists Hypertension/CHF/CAD Annual BMP Blood Test 04/28/2026 04/28/2025 Cholesterol Screening (Lipid Panel) 04/28/2030 04/28/2025, 04/28/2025, 01/17/2024, Additional history exists DTaP,Tdap,and Td Vaccines (3 - Td or [...] probability of hip fracture of 6.0%. Code 24619 -------- FINAL REPORT -------- Dictated By: Tony Baron Dictated Date: 09/28/2024 09:58 ET Assigned Physician: Tony Baron Reviewed and Electronically Signed By: Tony Baron Signed Date: 09/28/2024 10:00 ET Workstation ID: [id number] Transcribed By: Self Edit Transcribed Date: 09/28/2024 09:58 ET Narrative 09/28/2024 10:00 AM EST HISTORY: The patient is an 79-year-old postmenopausal female with clinical concern for metabolic bone disease. FINDINGS: Dual energy x-ray absorptiometry of the lumbar spine and femurs is performed. The mean bone mineral density at L1-L4 is 0.839 gm/cm2 which is 71% of that of young normals and 92% of that of age matched controls. This yields a T-score of -2.8 and a Z-score of -0.6 which is diagnostic of osteoporosis. The mean bone mineral density of the femurs bilaterally is 0.812 gm/cm2 which is 81% of that of young normals and 114% of that of age matched controls. This yields a T-score of -1.6 and a Z-score of 0.8 which is diagnostic of osteopenia. The T-score of the right femoral neck is -2.3 [...] density of the femurs bilaterally is 0.812 gm/ni4sqkrb is 81% of that of young normals [...] probability of hip fracture of 6.0%. Code 31161 -------- FINAL REPORT -------- Dictated By: Tony Baron Dictated Date: 09/28/2024 09:58 ET Assigned Physician: Tony Baron Reviewed and Electronically Signed By: Tony Baron Signed Date: 09/28/2024 10:00 ET Workstation ID: [id number] Transcribed By: Self Edit Transcribed Date: 09/28/2024 09:58 ET Miryam Butler MD IMG DXA PROCEDURES Final Result from Last 3 Months or Most Recently Relevant to Health Maintenance Insurance [employer] MEDICARE Care Teams Stunner Animal Relationship Specialty Start Date End Date Chau Oliver MD [address] [place] [address] PCP - General Internal Medicine 03/29/22
[2025-06-10 09:26] VITALS: BP 140/68
== END 2025-06-10 09:52 | disposition home or self-care (01) ==
LOC: HO.PMC 09:02
PROVIDERS: PCP Internal Medicine; Visit Provider Nurse Practitioner Family
DX: M54.2 Cervicalgia (principal); M47.812 Spondylosis without myelopathy or radiculopathy, cervical region; M25.512 Pain in left shoulder; M47.817 Spondylosis without myelopathy or radiculopathy, lumbosacral region; M51.369 Other intervertebral disc degeneration, lumbar region without mention of lumbar back pain or lower extremity pain
CPT/HCPCS: 99214; G2211

== ENCOUNTER → 2025-06-10 09:01 | Outpatient (BNVA) | payer MEDICARE, SELFPAY | PROVIDERS: PCP Internal Medicine; Visit Provider Nurse Practitioner Family | DX: M54.2 Cervicalgia (principal); M47.812 Spondylosis without myelopathy or radiculopathy, cervical region; M25.512 Pain in left shoulder; M47.817 Spondylosis without myelopathy or radiculopathy, lumbosacral region; M51.369 Other intervertebral disc degeneration, lumbar region without mention of lumbar back pain or lower extremity pain | CPT/HCPCS: 99212 ==

== ENCOUNTER 2025-07-19 09:40 | Outpatient (AMB) | payer MEDICARE, SELFPAY ==
--- OUTSIDE RECORDS SUMMARY | 2025-07-14 10:00 | XMS_ITS | Encounter Summary ---
Author Organization [facility] Address [address] [address] Care Team Providers Care Title Abstractor Name Role Phone Chau Oliver MD Primary Care Provider [phone] Reason for Visit * Reason Comments Blood Pressure Check Encounter Details Date Type Department Care Team ([facility] st Contact Info) Description 07/14/2025 10:00 AM EDT Office Visit Dre Gomes [address] [place] [phone] Rebecca Nye RN [address] [place] [address] Velasquez Reina [address] [place] [address] Social History Tobacco Use Types Packs/Day Years [...] Sign Reading Time Taken Comments Blood Pressure 128/72 07/14/2025 10:35 AM EDT Pulse 79 07/14/2025 10:35 AM EDT Temperature - - Respiratory Rate - - Oxygen Saturation 99% 07/14/2025 10:35 AM EDT Inhaled Oxygen Concentration - - Weight - - Height - - Body Mass Index - - documented in this encounter Progress Notes * Rebecca Nye, MARLENA - 07/14/2025 9:56 AM EDT Images from the original note were not included. SUBJECTIVE: Santa LACEY is a 80 year old female who presents to the clinic for blood pressure check. Patient denies any chest pain and dizziness at this visit. Pt does report 3 days of SOB and headaches. Pt has been taking tylenol with relief to headaches. Pt reports she usually gets congested around this season and in turn becomes hard to breath. Telemed sched for 07/21 @ 8:20 am per pt request for further discussion. Patient does not have home blood pressure monitor. . OBJECTIVE: Last 3 Vitals Flowsheet Row Office Visit from 07/14/2025 in [facility] [address] Office Visit from 06/25/2025 in [facility] Office Visit from 05/17/2025 in [facility] Temp -- -- 97.9 ??F (36.6 ??C) Pulse 79 80 74 BP 128/72 140/78 126/60 Resp -- -- 16 Weight -- -- 126 lb 9.6 oz (57.4 kg) Allergies Allergen Reactions Iron Rash Penicillins Rash Lab Results Component Value Date CHOL 167 04/28/2025 Hypertension Medications Medication Sig amLODIPine (NORVASC) 5 mg tablet Take 1 Tablet by mouth once daily. hydroCHLOROthiazide (HYDRODIURIL) 25 mg tablet TAKE 1 TABLET BY MOUTH DAILY Patient Active Problem List Diagnosis Primary hypertension Other specified hypothyroidism Midline low back pain without sciatica Elevated LDL cholesterol level Age-related osteoporosis without current pathological fracture Gastroesophageal reflux disease without esophagitis Pain in right leg Neck pain, chronic Major depression, single episode ASSESSMENT/PLAN: Blood Pressure Check Visit Diagnosis ICD-9-CM ICD-10-CM 1. BP check V81.1 Z01.30 This RN also assessed pt lungs, slightly diminished, clear bilaterally in all lobes. O2 sat 99%. MEDICATION questionnaire: Medications taken as prescribed: Yes Did you take your BP medication today: No, stomach bothering this am Medication adherence: adherent most of the time Medication side effects: No medication side effects noted HISTORY: Medical and social history (Smoking): Social History Tobacco Use Smoking status: Never Passive exposure: Never Smokeless tobacco: Never Vaping Use Vaping status: Never Used Substance Use Topics Alcohol use: Never Drug use: Never DIET Do you eat a lot of canned/pre-packaged food products? no Diet adherence (low sodium): adherent most of the time EXERCISE Physical activity: does not exercise at all EDUCATION Patient educated on maintaining low sodium diet and taking medications as prescribed . Pt informed on S/Sx of HTN as well as when to seek immediate medical attention. Pt advised to maintain a low sodium diet and incorporate exercise into daily routine as tolerated Future Appointments Date Time Provider Department Center 07/21/2025 8:20 AM Sarah Ware PA-C [id number] MINNIE Fernandez RN 07/14/2025, 9:56 AM EDT documented in this encounter Miscellaneous Notes * Patient Instructions - Rebecca Nye RN - 07/14/2025 10:48 AM EDT If you are not able to keep your appointment please call 24-48 hours before your appointment to cancel or reschedule. documented in this encounter Plan of Treatment Upcoming Encounters Date Type Department Care Team (Late st Contact Info) Description 07/21/2025 8:20 AM EDT Telemedicine Visit [facility] [address] [place] [address] Sarah Ware PA-C [address] [place] [address] documented as of this encounter Visit Diagnoses Diagnosis BP check- Primary Screening for hypertension documented in this encounter Additional Health Concerns Assessment Noted Time PHQ-9 Depression Total Score: 10 025 1:27 PM PDT A Depression follow-up plan has been documented for the patient 05/17/2025 11:06 AM PDT documented as of this encounter Care Teams Title Abstractor Relationship Specialty Start Date End Date Chau Oliver MD [address] [place] [address] PCP - General Internal Medicine 12/21/21 documented as of this encounter
--- OUTSIDE RECORDS SUMMARY | 2025-07-17 17:00 | XMS_ITS ---
Author Organization [facility] Address [address] [place] [address] Care Team Providers Care Key Holder Name Role Phone Tati Patrick Primary Care Provider [phone] Migration, Provider Unavailable Unavailable Allergies Allergen (clinical drug ingredient) Drug/Non Drug Allergy documented on EMR Reaction Allergy Type Onset Date Status Penicillin rash Drug Allergy Active aspirin / caffeine / orphenadrine Norgesic stomach upset,itchy Drug Allergy Active ferrous sulfate Iron rash Drug Allergy A ctive Aleve dizziness, itchy, weak Drug Allergy Active REASON FOR VISIT Multum To Medispan Conversion Encounter Medications Medication SIG (Take, Route, Frequency, Duration) Notes Start Date End Date Status Levothyroxine Sodium 75 MCG 1 tab(s) orally once a day for 30 days Active MiraLax - 17 G ORALLY ONCE A DAY NEEDED FOR CONSTIPATION for 30 DAY(S) *Please review and pick correct [facility]ati [facility]. If intended option is not shown, discontinue and re-order from Quick Search* 08/12/2019 Active Acetaminophen ER 650 MG 2 tab(s) orally every 12 hours Taking 1-2 times per week 05/11/2020 Active Encounters Encounter Location Date Provider Diagnosis [address] [phone] 07/17/2025 Provider Migration Hypothyroidism, unspecified E03.9 ; Dorsalgia, unspecified M54.9 and Constipation, unspecified K59.00 Assessments Encounter Date Diagnosis (ICD Code) Assessment Notes Treatment Notes Treatment Clinical Notes Section Notes 07/17/2025 Hypothyroidism, unspecified (ICD-10 - E03.9) 07/17/2025 Dorsalgia, unspecified (ICD-10 - M54.9) 07/17/2025 Constipation, unspecified (ICD-10 - K59.00) Plan Of Treatment Medication Medication Name Sig Start Date Stop Date Notes Levothyroxine Sodium 75 MCG 1 tab(s) orally once a day for 30 days MiraLax - 17 G ORALLY ONCE A DAY NEEDED FOR CONSTIPATION for 30 DAY(S) 08/12/2019 *Please review and pick correct strength-formulation from [facility] options. If intended option is not shown, discontinue and re-order from Quick Search* Acetaminophen ER 650 MG 2 tab(s) orally every 12 hours 05/11/2020 Taking 1-2 times per week Progress Notes * Santa MAGUIREDOB :1945 (80 yo F)Acc No.[id number]:07/17/2025 Patient: Katie JOHN Santa LACEY Provider: :1945 A ge:80 Y S ex:Female Date:07/17/2025 Address:[address] [place] [phone] Pcp:Tati Patrick Subjective: * Chief Complaints: * 1 . [facility] * Medical History: * Allergies: P enicillin: rash - Allergy, Iron: rash - Allergy, Aleve: dizziness, itchy, weak - Allergy, Norgesic: stomach upset,itchy - Allergy. Objective: * Vitals: Assessment: * Assessment: 1. H ypothyroidism, unspecified - E03.9 (Primary) 2 . D orsalgia, unspecified - M54.9 3 . C onstipation, unspecified - K59.00 Plan: * Treatment: 2. D orsalgia, unspecified Continue Acetaminophen ER Tablet Extended Release, 650 MG, 2 tab(s), orally, every 12 hours, Notes to Pharmacist: Taking 1-2 times per week. 3. C onstipation, unspecified Refill MiraLax POWDER FOR RECONSTITUTION, -, 17 G, ORALLY, ONCE A DAY NEEDED FOR CONSTIPATION, 30 DAY(S), 1, Refills 0, Notes to Pharmacist: *Please review and pick correct strength-formulation from Med[facility] options. If intended option is not shown, discontinue and re-order from Quick Search*.? * Images: Billing Information: * Visit Code: * Procedure Codes: * Electronic signature of Prov ider Migration on 07/19/2025 at 11:44 AM EDT Sign off status: Pending * Provider: Date: 07/17/2025 Generated for Olive joseph/Larry/Jollysmitting on: 07/19/2025 11:44 AM EDT
--- NOTE | 2025-07-19 09:46 | A.OFFVIS_ITS ---
Vital Signs 07/19/25 09:50 Height 5 ft 2 in Weight 121 lb BMI 22.1 BP 160/81 H Blood Pressure Location Rt brachial Position Sitting Pulse 73 Pulse Source Pulse Oximeter Intake Visit Reasons: follow up Xray results Intake Note: Pain today 3/10 Display Specialist Required: Yes Display Specialist Language: Director Life Services: Display Specialist Present Display Specialist Name: Oscar Allen #[id number] Information Interpreted: non-clinical & clinical Accompanied by: Self / Same As Patient Allergies iron Allergy (Unknown, Verified 07/19/25 09:50) Rash Penicillins Allergy (Unknown, Verified 07/19/25 09:50) Rash HPI Comments Details: The patient is an 80-year-old female presenting with neck and left shoulder pain to discuss recent xray results. The neck pain has been persistent for three months, originating after lifting her . The pain is located on the left side of the neck and is associated with mild disc degeneration from C4 through T1 and mild narrowing at right C5-C6 as per x-ray findings. The left shoulder pain is a continuation of previous issues, with a history of surgery performed in [place]. Recent xray imaging showed no fracture or acute abnormalities. The patient reports a pain level of 5/10 in the right arm and experiences increased pain when using the left arm. She has been managing the pain with Tylenol Arthritis, which provide some relief. Patient is interested in Orthopedic evaluation. PRIOR: The patient is an 80-year-old female presenting for follow-up after undergoing bilateral L3, L4, L5 medial branch RFA procedure on 05/06/25 and 05/13/[address] Rene. Patient reports no back pain since procedure and rates back pain at 0/10 at rest and movements. Patient also reports acute left shoulder and upper arm pain that began after the patient attempted to lift her who had fallen, approximately one month ago. The pain is described as severe and extends from the left arm to the back, posterior shoulder and neck, impacting her ability to sleep on the left side. T he patient had shoulder surgery approximately ten years ago in [place], but the current pain is attributed to the recent lifting incident. Patient reports she has mention this to another provider and has been sent for PT. She denies any recent imaging of shoulder or neck regions. The neck pain has been present for four days, with the patient unable to turn her head and experiencing pain radiating to the posterior neck. The pain increases with neck flexion, but [id number] movement is not affected. Denies any recent cough, cold, infection, fever or any other significant changes in medical history since last office visit. Past Procedures: 05/13/25: Radiofrequency lesioning medial branch nerves, Right L3, L4 medial branches and L5 dorsal ramus (L4/5 and L5/S1) (2 levels, 3 nerves)-100% pain relief 05/06/25: Radiofrequency lesioning medial branch nerves, Left L3, L4 medial branches and L5 dorsal ramus (L4/5 and L5/S1) (2 levels, 3 nerves)-100% pain relief 03/15/25: Bilateral Diagnostic L3-L4-DRL5 MBB-100% pain relief for 2 days in the back, ongoing right leg pain with certain movements PRIOR: The patient is an 80-year-old female presenting with follow-up concerns of back and right leg pain. The pain has been ongoing and worsening over the past few months, characterized as severe and radiating from the lumbar region down to the right leg. The patient notes significant discomfort, with a pain severity rating of 10/10. Her history of osteoporosis limits the treatment options, as she cannot receive steroid injections due to the risk of exacerbating her bone condition. Concurrently, arthritis is also contributing to her back pain. Her MRI in October did not display significant pathology, yet the pain intensifies. She is interested in Neurosurgery referral and requests this at [facility]. Consultation with our [facility] team about recent lumbar MRI findings concluded no surgical intervention needed. Additionally, the patient experiences significant right knee pain potentially contributing to her overall leg discomfort. While she has not had prior knee injections and is hesitant to pursue them, the option of diagnostic imaging for further assessment and potential gel injections without steroids was discussed. - Onset & Timing: Several months ago, progressively worsening - Quality & Character: Radiating pain from lower back to right leg, primarily affecting the front; originates L4-L5 - Primary Location: Lower back with radiation to right leg - Exacerbating Factors: Movements, bending, walking, prolonged standing or s itting, climbing stairs - Relieving Factors: Rest, activity modifications, heat, Tylenol - Functional Impact: Severe, rated as 10/10 pain; impacts daily activities - Affect: Severe pain causing significant distress - Analgesia: Currently using Tylenol; pain level rated at 10/10; no specific goal pain level provided - Adverse Effects: No reported side effects from Tylenol - Activities of Daily Living: Pain significantly affects mobility; difficulty performing daily tasks - Aberrant Drug Related Behaviors: None reported PRIOR: Patient presents today for follow-up to discuss recent lumbar spine MRI results. She continues to endorse significant low back pain which radiates into her both anterior thighs into lateral lower legs this is associated numbness and tingling and weakness in the left lower extremity. Patient reports pain 10/10. She states tramadol has been partially effective. 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 She requests therapeutic FAUSTO to alleviate her symptoms. Denies any fever or chills, abdominal or groin pain, bladder or bowel dysfunction or saddle anesthesia. PRIOR: Patient is a pleasant 79 years old Cuban speaking female with history of chronic midline low back pain with sciatica and osteoporosis, presents today for initial evaluation of low back pain with right-sided radiculopathy. She presents in a moderate distress today and constantly changes her positioning from sitting, standing and leaning forward to alleviate her acute back pain. Denies any recent trauma, injury, or falls. 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 Back pain is axial and also radiates to right lower extremity anteriorly and at times radiates to her left leg laterally and posteriorly. She reports numbness and tingling with burning sensation in her right hernández and dorsal foot. Her mobility, functioning, sleep and ADLs are significantly limited due to pain. She is concerned for not able to complete her house chores at home. She experiences spinal-stenosis related pain and cannot pursue formal physical therapy. Denies any fever, chills, abdominal or groin pain, bladder or bowel dysfunction or saddle anesthesia. Reports right lower extremity weakness due to pain. She ambulates with walker. Location: Low back pain radiates into RLE anteriorly, at times on the left posterior Duration: Chronic pain, worsening over the past one year Characteristics of symptom or complaint: Shooting, stabbing, sharp, numbness, tingling, radiating, heavy, aching Aggravating or associated factors: Movements, sitting, walking, sleeping, cold weather, ADLs, housechores Relieving factors: Rest, changing positions, modifying activities, heat, Tylenol [facility] Medical History (Updated 06/10/25 @ 09:18 by JESUSITA Gonzalez) Age-related osteoporosis without current pathological fracture GERD without esophagitis Midline low back pain with sciatica Hypothyroidism Hypertension Surgical History (Updated 07/19/25 @ 10:11 by JESUSITA Gonzalez) History of shoulder surgery (~2014) Review of Systems Const Details: - Musculoskeletal: Reports persistent neck and left shoulder pain for three months. - Neurological: Denies any new neurological symptoms. - General: Denies recent illness, cough, cold or fever. All systems reviewed & are unremarkable except as noted in HPI and below Physical Exam Vital Signs: Last Vital Signs Pulse 73 07/19/25 09:50 BP 160/81 H 07/19/25 09:50 BMI result Body Mass Index 22.1 General: Appears afebrile. No acute distress. Alert and oriented. Mood and affect appropriate. Follows and participates in conversation appropriately. Respiratory effort is unlabored. No cough. Able to transition from sit to stand unassisted. Ambulates with left normal heel strike and toe off. Neck Neck: Yes normal visual inspection, Yes no lymphadenopathy, Yes supple, No anterior neck swelling, Yes no JVD, No prominent supraclavicular fat pad and No prominent dorsocervical fat pad General: Yes no CVA tenderness Back/Spine/Pelvis Back: no CVA tenderness Cervical Spine: loss of normal cervical lordosis, cervical muscular tenderness, pain with cervical ROM (flexion), cervical spasm, No Cervical spine tenderness and No step off deformity Thoracic/Lumbar Spine: thoracic and lumbar spine normal to inspection, No Thora cic/lumbar spine scar(s), No pain with thoraco-lumbar ROM, thoraco-lumbar ROM limited, No thoracic spinal tenderness and No lumbar spinal tenderness (L3-S1) Extrem General: Yes capillary refill normal, Yes no clubbing, cyanosis or edema and Yes no calf tenderness Left upper extremity: shoulder/upper arm (Decreased ROM due to pain. I/E rotations reproduce mild-moderate pain) Details: inspection abnormal, tenderness Location: of the A-C joint, over the biceps tendon, over the subacromial bursa and over the deltoid bursa, axillary nerve sensory function normal and crepitus; no ecchymosis and no unsual warmth Results Reviewed Results Reviewed: XR LEFT SHOULDER MN 2 VIEWS 06/15/25 RAYUS INDICATION: Pain in left shoulder. TECHNIQUE: Two views of the left shoulder. COMPARISON: None Available. FINDINGS: There is no displaced fracture. The alignment is anatomic. No soft tissue abnormality is seen. Metallic suture anchor greater tuberosity present. IMPRESSION: No acute fracture. XR SPINE CERVICAL 4 OR 5 VIEWS 06/15/25 RAYUS INDICATION: Cervicalgia. Cervical spondylosis. Shoulder pain x2 months. TECHNIQUE: Four views of the cervical spine. COMPARISON: Correlation with XR left shoulder 06/15/25. FINDINGS: There is a normal cervical lordotic curvature present. The retroperitoneal soft tissues are normal in appearance. There are no fractures or dislocations demonstrated in the cervical spine. The C2-3 and C3-4 disc levels are normal in height. There is mild narrowing of the C4-5, C5-6, C6-7 and C7-T1 intervertebral disc levels. There is mild narrowing the right C5-6 neural foramen. The remaining n euroforamina are widely patent. Note is made of an internal fixation screw projecting in the region of one of the humeri on the lateral view. A metallic alana pin projects over the mandible on the right side on the AP projection. IMPRESSION: 1.No fractures, dislocations or subluxations are present in the cervical spine. 2.Mild degenerative disc disease is present at the C4-5, C5-6, C6-7 and C7-T1 disc levels. 3.Mild narrowing of the right C5-6 neural foramen. Assessment & Plan Assessment & Plan (1) History of shoulder surgery: Onset Date: ~2014 Comment: [place] Code(s): Z98.890 - Other specified postprocedural states Category: Surgical (2) Left shoulder pain: Code(s): M25.512 - Pain in left shoulder Category: Medical Plan The plan includes continuing the use of Tylenol for pain management as needed. An Orthopedic evaluation is recommended as the next step to further assess the shoulder pain and potential interventions. We previously discussed diagnostic nerve blocks for Sprint PNS trial vs RFA procedure, which she declined at this time. She responded well to lumbar medial branch RFA and continues to reports good back pain relief. All questions and concerns have been answered and patient agreed with the t reatment plan. Follow up as needed. Patient was informed and verbally consented to the use of an ambient scribe for clinic note documentation during this visit. Orders: Referrals Orthopedics Referral M25.512 - Pain in left shoulder, Z98.890 - Other specified postprocedural states Coding Level of Care Code Est Pt Level 4 (69795) Complex EM visit Add On G2211 Diagnoses History of shoulder surgery Z98.890 Left shoulder pain M25.512
[2025-07-19 09:50] VITALS: BP 160/81; PULSE 73; BMI 22.1
--- OUTSIDE RECORDS SUMMARY | 2025-07-19 11:44 | XMS_ITS | Patient Health Record ---
Author Organization [facility] Address [address] [place] [address] Care Team Providers Care Tool Grinder Operator Surface Name Role Phone Brenda Patrickprateek Primary Care Provider [phone] Migration, Provider Unavailable Unavailable Allergies Allergen (clinical drug ingredient) Drug/Non Drug Allergy documented on EMR Reaction Allergy Type Onset Date Status Penicillin rash Drug Allergy Active aspirin / caffeine / orphenadrine Norgesic stomach upset,itchy Drug Allergy Active ferrous sulfate Iron rash Drug Allergy A ctive Aleve dizziness, itchy, weak Drug Allergy Active Reason For Referral No Information Medications Medication SIG (Take, Route, Frequency, Duration) Notes Start Date End Date Status Levothyroxine Sodium 75 MCG 1 tab(s) orally once a day for 30 days Active MiraLax - 17 G ORALLY ONCE A DAY NEEDED FOR CONSTIPATION for 30 DAY(S) *Please review and pick correct strength-formulati on from [employer]lier[employer]ul options. If intended option is not shown, discontinue and re-order from Quick Search* 08/12/2019 Active Acetaminophen ER 650 MG 2 tab(s) orally every 12 hours Taking 1-2 times per week 05/11/2020 Active Immunizations Vaccine Route Administration Date Status Comme nts Tdap Unknown 03/25/2014 Administered Influenza Unknown 01/10/2016 Administered Influenza Unknown 11/27/2017 Administered PPSV 23 Unknown 08/04/2007 Administered Zoster Live (ZVL) Unknown 03/25/2014 Administered Influenza IM Intramuscular 08/11/2019 Administered Influenza IM Intramuscular 07/26/2020 Administered Prevnar 13 IM Intramuscular 10/04/2020 Administered NDC 00 [id number] Social History Tobacco Use: Social History Observation Description Date Details (start date - stop date) Never Smoker NA - NA Tobacco Use Assessment MU Question Answer Notes What is your current smoking status? nonsmoker Problems Problem Type SNOMED Code ICD Code Onset Dates Problem Status W/U Status Risk Notes Problem Helicobacter pylori (49633691) Helicobacter pylori [H. pylori] as the cause of diseases classified elsewhere (B96.81) Active confirmed Treated 11/2019. Problem Hypothyroidism (91948199) Hypothyroidism , unspecified (E03.9) Active confirmed Problem Major depression, single episode (71408832) Major depressive disorder, single episode, unspecified (F32.9) Active confirmed Problem Visual difficulty (806262106) Unspecified visual loss (H54.7) Active confirmed Problem Essential hypertensi on (34849061) Essential (primary) hypertension (I10) Active confirmed Problem Gastro-esophageal reflux disease without esophagitis (885330651) Gastro-esophag eal reflux disease without esophagitis (K21.9) Active confirmed Improved after treatment for H. pylori. Symptoms resolved. Problem Constipation (51588744) Constipation, unspecified (K59.00) Active confirmed Problem Shoulder joint pain (417288894) Pain in right shoulder (M25.511) Active confirmed Problem Shoulder joint pain (919532683) Pain in left shoulder (M25.512) Active confirmed Problem Backache (485976334) Dorsalgia, unspecified (M54.9) Active confirmed Problem Pain in right leg (836191289) Pain in right leg (M79.604) Active confirmed Problem Acquired renal cysti c disease (988502917) Cyst of kidney, acquired (N28.1) Active confirmed Problem Chest pain (78959127) Chest pain , unspecified (R07.9) Active confirmed Problem Flushing (05039522) Flushing (R23.2) Active confirmed Problem Edema (27385859) Edema, unspecified (R60.9) Active confirmed Problem Abnormal weight loss (997344674) Abnormal weight loss (R63.4) Active confirmed Problem Pure hypercholesterolemia (568941616) Pure hypercholester olemia, unspecified (E78.00) Active confirmed Encounters Encounter Location Date Provider Diagnosis [address] [address] 07/17/2025 Provider Migration Hypothyroidism, unspecified E03.9 ; Dorsalgia, unspecified M54.9 and Constipation, unspecified K59.00 Assessments Encounter Date Diagnosis (ICD Code) Assessment Notes Treatment Notes Treatment Clinical Notes Section Notes 07/17/2025 Hypothyroidism, unspecified (ICD-10 - E03.9) 07/17/2025 Dorsalgia, unspecified (ICD-10 - M54.9) 07/17/2025 Constipation, unspecified (ICD-10 - K59.00) Plan Of Treatment Pending Test Test Name [...] [employer] Medicare Complete [address] [address] [place] [address] [id number] Santa Maguire Self - patient is the insured 1 Medical (General) History Medical History History ICD Code HTN hyperlipidemia hypothyroid Surgical History Surgery Date(Month/Year) Rotator cuff repair, first on R, then on L. 2007, 2012 Hysterectomy - unsure of what was done 1 977 Hospitalization History Reason Date(Month/Year) [facility] - Hysterectomy 1976 [facility] 5 days for abdominal p ain. 1978
--- OUTSIDE RECORDS SUMMARY | 2025-07-19 11:45 | XMS_ITS | Clinical Summary ---
Author Organization [facility] Address [address] [place] [address] Phone Care Team Providers Care Pawn Shop Keeper Name Role Phone Chau Oliver MD Primary Care Provider [phone] Allergies Active Allergy Reactions Criticality Noted Date [...] the proximal left arm. Shoulder surgery in [place] in the distant past and is not [...] shoulder surgery over 10 years ago in [place]. She is not sure if the pain [...] without sciatica 2 Overview (03/10/2025): Referred to [facility] Had MRI 2020 [facility] [address] by previous MD Mild disc herniation L3-4, L4-5 Broad based posterior disc bulge with small central protrusion and L5-S1 minimal broad based disc bulge Encounters Date Type Department Care Team Description 05/31/2025 9:30 AM EDT Treatment [address] [address] Kalpesh Conway M, PT Chronic left shoulder pain (Primary Dx); Neck pain, chronic 05/20/2025 9:00 AM EDT Treatment [address] [address] Kalpesh Conway M, PT Chronic left shoulder pain (Primary Dx); Neck pain, chronic 05/18/2025 9:30 AM EDT Treatment [address] [address] Joao Amaya, REST ROOM MAID Chronic left shoulder pain (Primary Dx); Neck pain, chronic 05/04/2025 11:00 AM EDT Treatment [facility] [address] [address] Joao Amaya REST ROOM MAID Chronic left shoulder pain (Primary Dx) 04/29/2025 12:00 PM EDT Treatment [address] [address] Joao Amaya, REST ROOM MAID Chronic left shoulder pain (Primary Dx); Neck pain, chronic from Last 3 Months Immunizations Name Administration [...] Date Site/Laterality Comments SHOULDER SURGERY Bilateral PROCEDURE: DE UNLISTED PROCEDURE SHOULDER HYSTERECTOMY N/A PROCEDURE: HISTORICAL [...] Influencers of Health Screening 10/13/2022 Depression Screening 11/04/2024 COVID-19 Vaccine ( season) 2025 01/14/2021, 12/22/2020 Influenza Vaccine (#1) 2025 , 08/25/2021, 07/26/2020, [...] probability of hip fracture of 6.0%. Code 41631 -------- FINAL REPORT -------- Dictated By: Tony Baron Dictated Date: 09/28/2024 09:58 ET Assigned Physician: Tony Baron Reviewed and Electronically Signed By: Tony Baron Signed Date: 09/28/2024 10:00 ET Workstation ID: [id number] Transcribed By: Self Edit Transcribed Date: 09/28/2024 [...] density of the femurs bilaterally is 0.812 gm/zg9bydjy is 81% of that of young normals [...] probability of hip fracture of 6.0%. Code 58141 -------- FINAL REPORT -------- Dictated By: Tony Baron Dictated Date: 09/28/2024 09:58 ET Assigned Physician: Tony Baron Reviewed and Electronically Signed By: Tony Baron Signed Date: 09/28/2024 10:00 ET Workstation ID: [id number] Transcribed By: Self Edit Transcribed Date: 09/28/2024 09:58 ET us Miryam Butler MD IMG DXA PROCEDURES Final Result from Last 3 Months or Most Recently Relevant to Health Maintenance Insurance [employer] MEDICARE Care Teams Pawn Shop Keeper Relationship Specialty Start Date End Date Chau Oliver MD [address] [place] [id number] PCP - General Internal Medicine 03/29/22
--- OUTSIDE RECORDS SUMMARY | 2025-07-19 11:45 | XMS_ITS | Encounter Summary ---
Author Organization [facility] Address [address] [place] [address] Care Team Providers Care Construction Grip Name Role Phone Chau Oliver MD Primary Care Provider [phone] Encounter Details Date Type Department Care Team (Late st Contact Info) Description 02/26/2022 Dental Interim Note [facility] [address] [place] [phone] Fany Nina, DMD [address] [place] [address] Social History Tobacco Use Types Packs/Day Years [...] as of this encounter Plan of Treatment Upcoming Encounters Date Type Department Care Team (Late st Contact Info) Description 07/21/2025 8:20 AM EDT Telemedicine Visit [facility] [address] [place] [phone] Sarah Ware PA-C [address] [facility] [place] [address] documented as of this encounter Procedures Procedure [...] on filedocumented in this encounter Care Teams Construction Grip Relationship Specialty Start Date End Date Chau Oliver MD [address] [place] [address] PCP - General Internal Medicine 12/21/21 documented as of this encounter
--- OUTSIDE RECORDS SUMMARY | 2025-07-19 11:45 | XMS_ITS | Clinical Summary ---
Author Organization [facility] Address [address] [place] [address] Care Team Providers Care School Cook Name Role Phone Chau Oliver MD Primary Care Provider [phone] Source Comments PLEASE NOTE, if this patient [...] morning before breakfast 90 Capsule 3 Active famotidine (PEPCID) 40 mg tabletIndications: Gastroesophageal [...] once daily 100 Capsule 5 4 Active acetaminophen (TYLENOL) 500 mg tabletIndications: Primary hypertension Take 1 Tablet by mouth every 6 (six) hours as needed for pain 60 Tablet 5 Active levothyroxine 75 mcg tabletIndications: Other specified hypothyroidism Take 1 Tablet by mouth once daily TAKE 1 TABLET BY MOUTH DAILY 90 Tablet 1 5 Active blood pressure monitorIndications :Primary hypertension Pt has HTN- Code I10 Check BP everday 1 Kit 5 Active hydroCHLOROthiazid e (HYDRODIURIL) 25 mg tabletIndications: Primary hypertension TAKE 1 TABLET BY MOUTH DAILY 90 Tablet 5 Active amLODIPine (NORVASC) 5 mg tabletIndications: Primary hypertension Take 1 Tablet by mouth once daily. 90 Tablet 1 5 Active meclizine (ANTIVERT) 25 mg tabletIndications: Vertigo Take 1 Tablet by mouth once daily as needed for nausea or dizziness. 30 Tablet 1 5 Active melatonin 3 mg tabletIndications: Primary insomnia Take 1 Tablet by mouth nightly at bedtime as needed for sleep. 30 Tablet 2 5 Active atorvastatin (LIPITOR) 40 mg tabletIndications: Elevated LDL cholesterol level TAKE 1 TABLET BY MOUTH DAILY 90 Tablet 1 5 Active atorvastatin (LIPITOR) 40 mg tabletIndications: Elevated LDL cholesterol level TAKE 1 TABLET BY MOUTH DAILY 90 Tablet 1 5 Active Active Problems Problem Noted Date Diagnosed Date Pain in right leg 03/10/2025 Neck pain, chronic 03/10/2025 Major depression, single episode 03/10/2025 Gastroesophageal reflux disease without esophagi tis 06/11/2024 Age-related osteoporosis wit hout current pathological fracture 05/22/2022 Overview (10/05/2024): Bone Densitometer- [facility] 09/28/2024 Osteoporosis Refuses to be on medication. Needs a [facility] because of Bone pain. Pt referred Calcium and Vit d Elevated LDL cholesterol level 03/13/2022 Primary hypertension 03/09/2022 Other specified hypothyroidism 03/09/2022 Midline low back pain without sciatica 2 Overview (03/09/2022): Referred to [facility] Had MRI 2020 [facility] [address]isa by previous MD Mild disc herniation L3-4, L4-5 Broad based posterior disc bulge with small central protrusion and L5-S1 minimal broad based disc bulge Encounters Date Type Department Care Team Description 07/14/2025 10:00 AM EDT Office Visit [facility] [address] [place] [phone] Rebecca Nye, Velasquez Buckner 06/25/2025 10:00 AM EDT Office Visit [address] [address] Saloni Otero LPN 05/18/2025 Results Follow-Up [address] [phone] Gisel Hernandez FNP 05/17/2025 10:00 AM EDT Office Visit [address] [address] Gisel Hernandez FNP 04/28/2025 1:20 PM EDT Office Visit [address] [address] Sarah Ware PA-C from Last 3 Months [...] Pulse 79 07/14/2025 10:35 AM EDT Temperature 36.6 C (97.9 F) 05/17/2025 10:06 AM EDT Respiratory Rate 16 05/17/2025 10:06 AM EDT Oxygen Saturation 99% 07/14/2025 10:35 AM EDT Inhaled Oxygen Concentration - - Weight 57.4 kg (126 lb 9.6 oz) 05/17/2025 10:06 AM EDT Height 157.5 cm (5' 2 ) 05/17/2025 10:06 AM EDT Body Mass Index 23.16 05/17/2025 10:06 AM EDT Plan of Treatment Upcoming Encounters Date Type Department Care Team (Late st Contact Info) Description 07/21/2025 8:20 AM EDT Telemedicine Visit [facility] [address] [place] [address] Sarah Ware PA-C [address] [place] [address] Health Maintenance Due Date Last Done Comments Advanced Care Planning 1945 Medicare Annual Wellness Visit [address] CT Colonography 02/24/1988 FIT/gFOBT 02/24/1988 Fecal DNA 02/24/1988 Flexible Sigmoidoscopy 02/24/1988 [id number] (3 - season) 2025 01/14/2021, 12/22/2020 Imm-Influenza (#1) 2025 08/06/2022, 1 , 07/26/2020, Additional history exists Depression Monitoring 07/29/2025 04/28/2025 , 12/24/2024, 12/21/2022, Additional history exists Imm-Zoster, Recombinant (2 of 3) 07/29/2025 03/25/2014 Postponed from 05/20/2014 (Patient postponement) Breast Cancer Screening (Mammogram) 01/01/2026 01/01/2025, 01/30/2024, 01/30/2024, Additional history exists Falls Prevention 02/11/2026 02/11/2025, , 04/03/2023, Additional history exists Imm-RSV (adult) (1 - 1-dose 75+ series) 04/28/2026 Postponed from 2018 (Patient postponement) TSH Monitoring 04/28/2026 04/28/2025, 02/02, 01/17/2024, Additional history exists Tobacco Screening 05/17/2026 [...] EDT Routine general medical examination at a [facility] facility CARD SCANNED DOCUMENT 05/17/2025 [...] EDT Primary hypertension Elevated LDL cholesterol level HISTORIC DEXA SCAN 01/01/2025 3: 00 AM EST HISTORIC MAMMOGRAM 01/01/2025 3: 00 AM EST REFERRAL FOR COLONOSCOPY Routine 05/23/2023 3:00 AM EDT Health care maintenance from Last 3 Months or Most Recently Relevant to Health Maintenance Results * URINALYSIS, COMPLETE W/REFLEX TO CULTURE Urine Routine (05/17/2025 11:10 AM EDT) COLOR YELLOW YELLOW [facility] APPEARANCE CLEAR CLEAR [facility] SPECIFIC GRAVITY 1.013 1.001 - 1.035 [facility] URINE PH 6.0 5.0 - 8.0 [facility] GLUCOSE NEGATIVE NEGATIVE [facility] BILIRUBIN NEGATIVE NEGATIVE [facility] KETONES NEGATIVE NEGATIVE [facility] OCCULT BLOOD NEGATIVE NEGATIVE [facility] URINE PROTEIN NEGATIVE NEGATIVE [facility] NITRITE NEGATIVE NEGATIVE [facility] LEUKOCYTE ESTERASE NEGATIVE NEGATIVE [facility] URINE LEUKOCYTES NONE SEEN < OR = 5 [facility] RBC NONE SEEN < OR = 2 [facility] SQUAMOUS EPITHELIAL CELLS NONE SEEN < OR = 5 [facility] BACTERIA NONE SEEN NONE SEEN [facility] HYALINE CAST NONE SEEN NONE SEEN [facility] SEE NOTE See Below [facility] Comment: This urine was analyzed for the presence of WBC, RBC, bacteria, casts, and other formed elements. Only those elements seen were reported. Urine Urine specimen / Unknown 05/17/2025 11:10 AM EDT 05/17/2025 11:11 AM EDT [facility] URINE AMBULATORY Final Result Performing Organization Address City/[facility]/ZIP Co de Phone Number [facility] [address] [address], [facility] [address] [address] * RFLX - REFLEXIVE URINE CULTURE Routine (05/17/2025 11:10 AM EDT) REFLEXIVE URINE CULTURE See Below [employer] [facility] Comment:NO CULTURE INDICATED 05/17/2025 11:1 0 AM EDT 05/17/2025 11:11 AM EDT [facility] LAB - MICROBIOLOGY A MBULATORY Final Result Performing Organization Address City/[facility]/ZIP Co de Phone Number [facility] [address] [address], [place] [facility] [address] [address] * CARD SCANNED DOCUMENT (05/17/2025 3:00 AM EDT) 05/17/2025 3:00 AM EDT Gisel Hernandez PRICE ANALYST SCAN ECGS Larisa l Result * REFERRAL SCANNED DOCUMENT (05/13/2025 3:00 AM EDT) 05/13/2025 3:00 AM EDT Chau Oliver MD SCAN REFERRAL Final Result * VITAMIN D, 1,25-DIHYDROXY Routine (04/28/2025 2:25 PM EDT) VITAMIN D, 1, 25 (OH)2, TOTAL 48 18 - 72 pg/mL [facility] VITAMIN D3, 1, 25 (OH)2 48 pg/mL [facility] VITAMIN D2, 1, 25 (OH)2 <8 pg/mL [facility] Comment: Vitamin D3, 1,25(OH)2 indicates both endogenous production and supplementation. Vitamin D2, 1,25(OH)2 is an indicator of exogenous sources, such as diet or supplementation. Interpretation and therapy are based on measurement of Vitamin D,1,25(OH)2, Total. This test was developed and its analytical performance characteristics have been determined by [employer], [place], [place]. It has not been cleared or approved by the FDA. This assay has been validated pursuant to the CLIA regulations and is used for clinical purposes. Blood Blood / Unknown 04/28/2025 2 :25 PM EDT 04/28/2025 2:26 PM EDT Sarah Ware PA-C LAB - BLOOD DRAW Final Resul t STARFACE [id number] [place], [place] , [facility] [email or web address] [address] [place], [place] * THYROID CASCADING REFLEX PANEL Routine (04/28/2025 2:25 PM EDT) Pathologist [facility] TSH 0.74 0.40 - 4.50 mIU/L [facility] Blood Blood / Unknown 04/28/2025 2 :25 PM EDT 04/28/2025 2:26 PM EDT Sarah Villarprateek [place] LAB - BLOOD DRAW Edited Resu lt - Final Performing Organization Address [facility] de Phone Number [employer] [address] [address], [employer] [address] [address] * VITAMIN B12 & FOLATE Routine (04/28/2025 2:25 PM EDT) [facility] VITAMIN B12 496 200 - 1,100 pg/mL [facility] FOLATE, SERUM 10.2 5.5 ng/mL [facility] Comment: Reference Range Low: <3.4 Borderline: 3.4-5.4 Normal: >5.4 Blood Blood / Unknown 04/28/2025 2 :25 PM EDT 04/28/2025 2:26 PM EDT Sarah Jeanie [place] LAB - BLOOD DRAW Edited Resu lt - Final Performing Organization Address [facility] de Phone Number [employer] [address] [place] [id number], [employer] [address] [phone] * BLOOD COUNT COMPLETE AUTO&AUTO DIFRNTL WBC Routine (04/28/2025 2:25 PM EDT) [facility] WHITE BLOOD CELL COUNT 6.7 3.8 - 10.8 Thousand/ uL [facility] RED BLOOD CELL COUNT 4.52 3.80 - 5.10 Million/u L [facility] HEMOGLOBIN 13.9 11.7 - 15.5 g/dL [facility] HEMATOCRIT 43.0 35.0 - 45.0 % [facility] MCV 95.1 80.0 - 100.0 fL [facility] MCH 30.8 27.0 - 33.0 pg [employer] MCHC 32.3 32.0 - 36.0 g/dL [employer] Comment: For adults, a slight decrease in the calculated MCHC value (in the range of 30 to 32 g/dL) is most likely not clinically significant; however, it should be interpreted with caution in correlation with other red cell parameters and the patient's clinical condition. RDW 13.4 11.0 - 15.0 % [employer] PLATELET COUNT 163 140 - 400 Thousand/ uL [employer] MPV 10.2 7.5 - 12.5 fL [employer] ABSOLUTE NEUTROPHILS 4,241 1,500 - 7,800 cells/uL [employer] ABSOLUTE LYMPHOCYTES 1,782 850 - 3,900 cells/uL [employer] ABSOLUTE MONOCYTES 590 200 - 950 cells/uL [employer] ABSOLUTE EOSINOPHILS 40 15 - 500 cells/uL [employer] ABSOLUTE BASOPHILS 47 0 - 200 cells/uL [employer] NEUTROPHILS PCT 63.3 % [employer] LYMPHOCYTES 26.6 % [facility] [employer] MONOCYTES 8.8 % [facility] [employer] EOSINOPHILS 0.6 % [facility] [employer] BASOPHILS 0.7 % [employer] Blood Blood / Unknown 04/28/2025 2 :25 PM EDT 04/28/2025 2:26 PM EDT Sarah Ware PA-C LAB - BLOOD DRAW Edited Resu lt - Final [employer] [address] [address], [employer] [address] [place] [phone] * (ABNORMAL) LIPID PANEL Routine (04/28/2025 2:25 PM EDT) CHOLESTEROL, TOTAL 167 <200 mg/dL [employer] HDL CHOLESTEROL 48(L) > OR = 50 mg/dL [employer] TRIGLYCERIDES 208(H) <150 mg/dL [employer] Comment: If a non-fasting specimen was collected, consider repeat triglyceride testing on a fasting specimen if clinically indicated. Acosta et al. J. of Clin. Lipidol. 2015;9:129-169. LDL-CHOLESTEROL 89 99 mg/dL (calc) [employer] Comment: Reference range: <100 Desirable range <100 mg/dL for primary prevention; <70 mg/dL for patients with CHD or diabetic patients with > or = 2 CHD risk factors. LDL-C is now calculated using the Yana calculation, which is a validated novel method providing better accuracy than the Friedewald equation in the estimation of LDL-C. Trent SS et al. DOMINGO. 2013;310(19): 7672-7446 (http://education.inEarth/faq/IHA850) CHOL/HDLC RATIO 3.5 <5.0 (calc) [employer] NON-HDL CHOLESTEROL 119 <130 mg/dL (calc) [employer] Comment: For patients with diabetes plus 1 major ASCVD risk factor, treating to a non-HDL-C goal of <100 mg/dL (LDL-C of <70 mg/dL) is considered a therapeutic option. Blood Blood / Unknown 04/28/2025 2 :25 PM EDT 04/28/2025 2:26 PM EDT us Sarah Ware PA-C LAB - BLOOD DRAW Final Resul t [employer] [address] [address], [employer] [address] [place] [phone] * COMPREHENSIVE METABOLIC PANEL Routine (04/28/2025 2:25 PM EDT) Pathologist [facility] GLUCOSE 85 65 - 99 mg/dL [employer] Comment: Fasting reference interval UREA NITROGEN (BUN) 17 7 - 25 mg/dL [employer] CREATININE (blood) 0.88 0.60 - 0.95 mg/dL [employer] EGFR 66 > OR = 60 mL/min/1. 73m2 [employer] BUN/CREATININE RATIO SEE NOTE: [employer] Comment: Not Reported: BUN and Creatinine are within reference range. SODIUM 141 135 - 146 mmol/L [employer] POTASSIUM 4.8 3.5 - 5.3 mmol/L [employer] CHLORIDE 105 98 - 110 mmol/L [employer] CARBON DIOXIDE 29 20 - 32 mmol/L [facility] CALCIUM 9.1 8.6 - 10.4 mg/dL [facility] PROTEIN, TOTAL 6.3 6.1 - 8.1 g/dL [facility] ALBUMIN 4.2 3.6 - 5.1 g/dL [facility] GLOBULIN 2.1 1.9 - 3.7 g/dL (calc) [facility] ALBUMIN/GLOBULI N RATIO 2.0 1.0 - 2.5 (calc) [facility] BILIRUBIN, TOTAL 0.3 0.2 - 1.2 mg/dL [facility] ALKALINE PHOSPHATASE 62 37 - 153 U/L [facility] AST 17 10 - 35 U/L [facility] ALT 18 6 - 29 U/L [facility] Blood Blood / Unknown 04/28/2025 2 :25 PM EDT 04/28/2025 2:26 PM EDT Sarah Ware PA-C LAB - BLOOD DRAW Edited Resu lt - Final [facility] [address] [address], [facility] [address] [phone] * HISTORIC MAMMOGRAM (01/01/2025 3:00 AM EST) [...] Most Recently Relevant to Health Maintenance [place] DENTAL GENERIC - DENTAL [facility] MEDICARE COMPLETE Care Teams School Cook Relationship Specialty Start Date End Date Chau Oliver MD [address] [place] [address] PCP - General Internal Medicine 12/21/21
--- OUTSIDE RECORDS SUMMARY | 2025-07-19 11:45 | XMS_ITS | Encounter Summary ---
Author Organization [facility] Address [address] [place] [address] Care Team Providers Care Power Equipment Technology Instructor Name Role Phone Chau Oliver MD Primary Care Provider [phone] Encounter Details Date Type Department Care Team (Late st Contact Info) Description 03/22/2022 Dental Interim Note [facility] Dental [address] [place] [address] Fany Nina, SUHA [address] [place] [address] Social History Tobacco Use Types Packs/Day Years [...] Description 07/21/2025 8:20 AM EDT Telemedicine Visit [facility] [address] [place] [phone] Sarah Ware PA-C [address] [facility] [place] [address] documented as of this encounter Visit Diagnoses Not on filedocumented in this encounter Additional Health Concerns Assessment Noted Time PHQ-9 Depression Total Score: 7 03/09/20 22 2:42 PM PDT documented as of this encounter Care Teams Power Equipment Technology Instructor Relationship Specialty Start Date End Date Chau Oliver MD [address] [place] [address] PCP - General Internal Medicine 12/21/21 documented as of this encounter
--- OUTSIDE RECORDS SUMMARY | 2025-07-19 11:45 | XMS_ITS | Encounter Summary ---
Author Organization [facility] Address [address] [place] [address] Care Team Providers Care Dress Cap Maker Name Role Phone Chau Oliver MD Primary Care Provider [phone] Encounter Details Date Type Department Care Team (Late st Contact Info) Description 03/15/2022 Dental Interim Note [facility] Dental [address] [place] [address] Fany Nina, SUHA [address] [place] [address] Social History Tobacco Use Types Packs/Day Years [...] Description 07/21/2025 8:20 AM EDT Telemedicine Visit [facility] [address] [place] [phone] Sarah Ware PA-C [address] [place] [address] documented as of this encounter Visit Diagnoses Not on filedocumented in this encounter Additional Health Concerns Assessment Noted Time PHQ-9 Depression Total Score: 7 03/09/20 22 2:42 PM PDT documented as of this encounter Care Teams Dress Cap Maker Relationship Specialty Start Date End Date Chau Oliver MD [address] [place] [address] PCP - General Internal Medicine 12/21/21 documented as of this encounter
== END 2025-07-19 10:17 | disposition home or self-care (01) ==
LOC: HO.PMC 09:40
PROVIDERS: PCP Internal Medicine; Visit Provider Nurse Practitioner Family
DX: Z98.890 Other specified postprocedural states (principal); M25.512 Pain in left shoulder
CPT/HCPCS: 99214; G2211

== ENCOUNTER → 2025-07-19 09:40 | Outpatient (BNVA) | payer MEDICARE, SELFPAY | PROVIDERS: PCP Internal Medicine; Visit Provider Nurse Practitioner Family | DX: M25.512 Pain in left shoulder (principal); Z98.890 Other specified postprocedural states | CPT/HCPCS: 99212 ==